=== PATIENT | male | born 1940 | race Caucasian/White ===

== ENCOUNTER → 2016-08-29 | Outpatient (CLI) | payer MEDICARE, OTHER ==
[~2016-08-29] MED LIST: AMLO10TA2 PO; ASPI325T PO; DONETAB6 PO; ENAL20TA PO; HYDR25TAB PO; METO25TA74 PO; SERT25TA85 PO; SIMV10TA2 PO; SIMV20TA2 PO
== END ==
LOC: M LAB 09:54
PROVIDERS: ATTEND Urology
DX: C61 Malignant neoplasm of prostate (principal)

== ENCOUNTER → 2017-02-27 | Outpatient (CLI) | payer MEDICARE, OTHER ==
[~2017-02-27] MED LIST changes: +METO1TAB32 PO; -METO25TA74 PO; +SERT25TA PO; -SERT25TA85 PO
== END ==
LOC: M LAB 10:10
PROVIDERS: ATTEND Urology
DX: C61 Malignant neoplasm of prostate (principal)

== ENCOUNTER 2017-07-24 09:30 | Inpatient (IN) | payer MEDICARE, OTHER ==
[2017-07-24] MEDS ORDERED: SIMV40TA2 PO (09:45)
[2017-07-24] MEDS ORDERED: NS 500 ML IV ONE (09:45)
[2017-07-24] MEDS ORDERED: NAME28CA PO ×2 (09:45→10:25)
[2017-07-24] MEDS ORDERED: ENAL20TA PO ×2 (09:45→10:25)
[2017-07-24 10:11] LABS: BASO % 0.2 % (0.0-1.0); EOS # 0.1 10^3/uL (0.0-0.50); EOS % 0.4 % (0.0-3.0); IMMATURE GRANULOCYTE % 1.4 % (0-0); LYMPH # 1.5 10^3/uL (1.5-4.5); MEAN CORPUSCULAR HEMOGLOBIN 30.3 pg (27.0-33.0); MEAN CORPUSCULAR HGB CONC 32.3 g/dl (32.0-36.5); MEAN CORPUSCULAR VOLUME 93.9 fl (80.0-96.0); MONO # 0.5 10^3/uL (0.0-0.8); MONO % 2.4 % (0.0-5.0); NEUTROPHILS # 16.2 10^3/uL (1.8-7.7); NEUTROPHILS % 87.6 % (36.0-66.0); PLATELET COUNT, AUTOMATED 228 10^3/uL (150-450); RED CELL DISTRIBUTION WIDTH 14.6 % (11.5-14.5); WHITE BLOOD COUNT 18.5 10^3/uL (4.0-10.0)
[2017-07-24] MEDS ORDERED: PANTOPRAZOLE 40MG INJ (PROTONIX) (C9113) IV ONE (10:15)
[2017-07-24 10:25] LABS: INR 1.14
[2017-07-24] MEDS ORDERED: ASPI325T PO (10:25)
[2017-07-24] MEDS ORDERED: AMLO10TA2 PO (10:25)
[2017-07-24] MEDS ORDERED: DONE1TAB62 PO (10:25)
[2017-07-24] MEDS ORDERED: SERT25TA PO (10:25)
[2017-07-24] MEDS ORDERED: METO1TAB7 PO (10:25)
[2017-07-24] MEDS ORDERED: ZOCO40TA PO (10:25)
[2017-07-24] MEDS ORDERED: HYDR25TAB PO (10:25)
[2017-07-24] MEDS ORDERED: SIMV10TA2 PO (10:25)
[2017-07-24 10:49] LABS: ALBUMIN 3.4 GM/DL (3.2-5.2); ALBUMIN/GLOBULIN RATIO 1.36 (1.00-1.93); ALKALINE PHOSPHATASE 58 U/L (45-117); ALT/SGPT 32 U/L (12-78); ANION GAP 10 MEQ/L (8-16); AST/SGOT 20 U/L (7-37); BILIRUBIN,DIRECT < 0.1 MG/DL (0.0-0.2); BILIRUBIN,TOTAL 0.3 MG/DL (0.2-1.0); BLOOD UREA NITROGEN 39 MG/DL (7-18); CARBON DIOXIDE LEVEL 25 MEQ/L (21-32); CHLORIDE LEVEL 110 MEQ/L (98-107); CREATININE FOR GFR 1.28 MG/DL (0.70-1.30); GLOMERULAR FILTRATION RATE 58.2 (>42); GLUCOSE, FASTING 146 MG/DL (83-110); POTASSIUM SERUM 3.6 MEQ/L (3.5-5.1); SODIUM LEVEL 145 MEQ/L (136-145); TOTAL PROTEIN 5.9 GM/DL (6.4-8.2)
[2017-07-24] MEDS ORDERED: ISOVUE-370 76% 100ML VIAL (Q9967) As Ordered ONE (11:09)
--- NOTE | 2017-07-24 12:35 | HPEPDOC ---
General Date of Admission 07/24/17 Primary Care Physician: STACI NG M.D. Chief Complaint The patient is a 77-year-old male admitted with a reason for visit of syncope. Source: Patient, Family Exam Limitations: Dementia Timing/Duration: 24 hours Severity: Mild, Moderate Associated Symptoms: Dizziness History of Present Illness 77 yo male for one day history of black stools. History is uncertain due to underlying dementia. He thinks this is his first occurrence of melena. Also admits to dizziness with exertion over the past two days. Lives alone. Family at bedside. Denies any other complaints. Denies NSAID ab/use. Home Medications Scheduled Amlodipine Besylate (Amlodipine Besylate) 10 Mg Tab, 10 MG PO DAILY, (Reported) Aspirin (Aspirin) 325 Mg Tab, 325 MG PO DAILY, (Reported) Donepezil Hydrochloride (Donepezil HCl) 23 Mg Tab, 23 MG PO DAILY, (Reported) Enalapril Maleate (Enalapril Maleate) 20 Mg Tab, 20 MG PO DAILY, (Reported) Hydrochlorothiazide (Hydrochlorothiazide) 25 Mg Tab, 25 MG PO DAILY, (Reported) Memantine Hydrochloride (Namenda Xr) 28 Mg Cap, 28 MG PO QHS, (Reported) Metoprolol Succinate (Metoprolol Succinate ER) 50 Mg Tab, 25 MG PO DAILY, ( Reported) Sertraline Hcl (Sertraline HCl) 25 Mg Tab, 25 MG PO QHS, (Reported) Simvastatin (Simvastatin) 10 Mg Tab, 10 MG PO QHS, (Reported) 50mg total dose Simvastatin - High Dose (Zocor) 40 Mg Tab, 40 MG PO QHS, (Reported) 50mg total dose Allergies Coded Allergies: No Known Allergies (Unverified , 01/19/16) Past Medical History Medical History HTN CAD s/p BMS stents 10-15 years ago - [facility] Depression Dementia Prostate CA s/p prostatectomy Social History * Smoker: greater than 1 pack/day Alcohol: Denies Drugs: denies Review of Symptoms Constitutional: Reports: Other (dizziness), Denies: Chills, Fever, Malaise, Night Sweats, Weakness, Fatigue, Weight Loss , Lethargy Eyes: Denies: Pain, Vision change, Conjunctivae inflammation, Eyelid inflammation, Redness, Other ENT: Denies: Head Aches, Ear Pain, Dysphagia, Sinus Congestion, Post Nasal Drip , Sore Throat, Epistaxis, Other Symptoms Skin: Denies: Rash, Lesions, Jaundice, Bruising, Itching, Dry, Breakdown, Nail Changes, Other Pulmonary: Denies: Dyspnea, Cough, Pleuritic Chest Pain, Other Symptoms Cardiovascular: Denies: Chest Pain, Palpitations, Orthopnea, Paroxysmal Noc. Dyspnea, Edema, Lt Headedness, Other Symptoms Gastrointestinal: Denies: Nausea, Vomiting, Abdominal Pain, Diarrhea, Constipation, Melena, Hematochezia, Other Symptoms Genitourinary: Denies: Dysuria, Frequency, Incontinence, Hematuria, Retention, Other Symptoms Hematologic: Denies: Bruising, Bleeding Excessively, Petecchia, Purpura, Enlarged Lymph Nodes, Other Hematologic Physical Examination General Exam: Positive: Alert, Cooperative, No Acute Distress Eye Exam: Positive: PERRLA, Conjunctiva & lids normal, EOMI, Negative: Sclera icteric ENT Exam: Positive: Atraumatic, Mucous membr. moist/pink, Tongue Midline Neck Exam: Positive: Supple, Negative: JVD Chest Exam: Positive: Clear to auscultation, Normal air movement Heart Exam: Positive: Rate Normal, Regular Rhythm Telemetry: Positive: No significant arrhythmia Abdomen Exam: Positive: Normal bowel sounds, Soft, Negative: Tenderness Neuro Exam: Positive: Normal Speech Psych Exam: Negative: Oriented x 3 (oriented to person and place) Vital Signs Vital Signs Date Time Temp Pulse Resp B/P (MAP) Pulse Ox O2 Delivery O2 Flow Rate FiO2 07/24/17 10:03 97.6 77 19 102/50 (67) 98 Room Air Laboratory Data Labs 24H Laboratory Tests 2 07/24/17 09:58: Immature Granulocyte % (Auto) 1.4H, White Blood Count 18.5H, Red Blood Count 2.31L, Hemoglobin 7.0L, Hematocrit 21.7L, Mean Corpuscular Volume 93.9, Mean Corpuscular Hemoglobin 30.3, Mean Corpuscular Hemoglobin Concent 32.3, Red Cell Distribution Width 14.6H, Platelet Count 228, Neutrophils (%) (Auto) 87.6H, Lymphocytes (%) (Auto) 8.0L, Monocytes (%) (Auto) 2.4, Eosinophils (%) (Auto) 0.4, Basophils (%) (Auto) 0.2, Neutrophils # (Auto) 16.2H, Lymphocytes # (Auto) 1.5, Monocytes # (Auto) 0.5, Eosinophils # (Auto) 0.1, Basophils # (Auto) 0.0, Immature Granulocyte # (Auto) 0.3H, Nucleated Red Blood Cells % (auto) 0.0, Prothrombin Time 14.8H, Prothromb Time International Ratio 1.14, Anion Gap 10, Glomerular Filtration Rate 58.2, Calcium Level 8.0L, Aspartate Amino Transf (AST /SGOT) 20, Alanine Aminotransferase (ALT/SGPT) 32, Alkaline Phosphatase 58, Total Bilirubin 0.3, Direct Bilirubin < 0.1, Total Protein 5.9L, Albumin 3.4, Albumin/Globulin Ratio 1.36, Lipase 90 07/24/17 11:35: Lactic Acid Level 2.0 CBC/BMP Laboratory Tests 07/24/17 09:58 Red Blood Count 2.31 L, Mean Corpuscular Volume 93.9, Mean Corpuscular Hemoglobin 30.3, Mean Corpuscular Hemoglobin Concent 32.3, Red Cell Distribution Width 14.6 H, Neutrophils (%) (Auto) 87.6 H, Lymphocytes (%) (Auto ) 8.0 L, Monocytes (%) (Auto) 2.4, Eosinophils (%) (Auto) 0.4, Basophils (%) ( Auto) 0.2, Neutrophils # (Auto) 16.2 H, Lymphocytes # (Auto) 1.5, Monocytes # ( Auto) 0.5, Eosinophils # (Auto) 0.1, Basophils # (Auto) 0.0 Microbiology Microbiology 07/24/17 Blood Culture, Received Pending 07/24/17 Blood Culture, Received Pending Problems (1) GI bleed Status: Acute Response to Treatment: Progressing Discussed With: Patient Problem Specific Plan: Consult Specialist, Monitor Clinically, Repeat Labs (2) CAD (coronary artery disease) Status: Chronic Discussed With: Patient (3) HTN (hypertension) Status: Chronic Discussed With: Patient Problem Specific Plan: Monitor Clinically (4) Dementia Status: Chronic Discussed With: Patient Problem Specific Plan: Monitor Clinically (5) Prostate cancer Status: Chronic Problem Specific Plan: Monitor Clinically Problem Text: s/p prostatectomy (6) Depression Status: Chronic Discussed With: Patient Problem Specific Plan: Monitor Clinically Plan / VTE VTE Prophylaxis Ordered?: Yes (mechanical) Plan Plan NPO, IV fluids, GI consultation, serial H/H, IV protonix Discussed advanced directives with patient and family. IVF: Continue Diet: Make NPO Activity: Bedrest Anticipated Discharge: Home, Home With Services GIA HAMILTON MD Jul 24, 2017 12:35
--- NOTE | 2017-07-24 12:48 | REP ---
CT of the abdomen pelvis with IV contrast, without bowel contrast: Comparison is 12/14/2015. The patient has leukocytosis . The patient has a history of prostate carcinoma. The patient has had an interval prostatectomy. The visualized lung bain are unremarkable. The hepatic parenchyma is homogeneous. There is a calcified granuloma in the hepatic left lobe, unchanged. The gallbladder, pancreas and spleen are normal size and unremarkable and unchanged. The adrenals are unremarkable, unchanged. There are multiple bilateral renal cortical cysts as previously, the largest cyst on the left today measuring 9.0 cm (8.6 cm previously). The largest cyst in the right kidney is a parapelvic cyst today measuring 3.3 cm (previously 2.8 cm). There is no hydronephrosis. There is no perinephric stranding or fluid collection. There is a dumbbell shaped abdominal aortic aneurysm. The superior portion today measures 3.2 cm diameter and the inferior portion measures 3.2 cm diameter. There is no periaortic hematoma. There is no periaortic or mesenteric adenopathy. There is no bowel distension. No inflammatory changes in the mesentery. There is no ascites. Pelvis: There are occasional diverticula in the descending colon. There is no CT evidence of diverticulitis. The prostate is no longer present. The bladder is unremarkable. There is no pelvic adenopathy or ascites. There are no lytic, blastic or destructive skeletal changes. 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 Impression: There is no ascites. There are no focal fluid collections. No abscess is identified. There are bilateral renal cortical cysts, unchanged. There is no hydronephrosis or perinephric fluid collection. There is a calcified granuloma of the left lobe of the liver, unchanged. There has been interim prostatectomy. There is a dumbbell shaped abdominal aortic aneurysm measuring up to 3.2 cm in diameter. No retroperitoneal or intraperitoneal adenopathy. There are no lytic, blastic destructive skeletal changes. 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 Signed by Marco Martines MD 07/24/2017 12:39 P
[2017-07-24 18:33] VITALS: BP 116/62
[2017-07-24] MEDS: NS 1,000 ML IV SCH (18:56)
[2017-07-24 20:00] VITALS: BP 117/60
--- NOTE | 2017-07-24 20:02 | ECGEPIP ---
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
[2017-07-24 20:47] VITALS: BP 117/60
[2017-07-24 21:02] VITALS: BP 121/58
[2017-07-24] MEDS: PANTOPRAZOLE 40MG INJ (PROTONIX) (C9113) IV SCH (22:00)
[2017-07-24 22:03] VITALS: BP 101/54
[2017-07-25] VITALS: BP 121/64
[2017-07-25 04:00] VITALS: BP 99/53
[2017-07-25 05:21] LABS: MEAN CORPUSCULAR HEMOGLOBIN 29.9 pg (27.0-33.0); MEAN CORPUSCULAR HGB CONC 33.8 g/dl (32.0-36.5); MEAN CORPUSCULAR VOLUME 88.4 fl (80.0-96.0); PLATELET COUNT, AUTOMATED 195 10^3/uL (150-450); WHITE BLOOD COUNT 10.2 10^3/uL (4.0-10.0)
[2017-07-25 05:34] LABS: ANION GAP 8 MEQ/L (8-16); BLOOD UREA NITROGEN 21 MG/DL (7-18); CALCIUM LEVEL 7.5 MG/DL (8.8-10.2); CARBON DIOXIDE LEVEL 25 MEQ/L (21-32); CHLORIDE LEVEL 114 MEQ/L (98-107); CREATININE FOR GFR 1.07 MG/DL (0.70-1.30); GLOMERULAR FILTRATION RATE > 60.0 (>42); GLUCOSE, FASTING 102 MG/DL (83-110); SODIUM LEVEL 147 MEQ/L (136-145)
--- NOTE | 2017-07-25 07:20 | IPNPDOC ---
Subjective Date Seen The patient was seen on 07/25/17. Subjective Chief Complaint/HPI The patient is a 77-year-old male admitted with a reason for visit of Gi Bleed. General: Denies: ROS Unobtainable, Chills, Night Sweats, Fatigue, Malaise, Normal Appetite, Other Symptoms Constitutional: Denies: Chills, Fever, Malaise, Night Sweats, Weakness, Fatigue , Weight Loss, Lethargy, Other Eyes: Denies: Pain, Vision change, Conjunctivae inflammation, Eyelid inflammation, Redness, Other ENT: Denies: Head Aches, Ear Pain, Dysphagia, Sinus Congestion, Post Nasal Drip , Sore Throat, Epistaxis, Other Symptoms Skin: Denies: Rash, Lesions, Jaundice, Bruising, Itching, Dry, Breakdown, Nail Changes, Other Pulmonary: Denies: Dyspnea, Cough, Pleuritic Chest Pain, Other Symptoms Cardiovascular: Denies: Chest Pain, Palpitations, Orthopnea, Paroxysmal Noc. Dyspnea, Edema, Lt Headedness, Other Symptoms Gastrointestinal: Denies: Nausea, Vomiting, Abdominal Pain, Diarrhea, Constipation, Melena, Hematochezia, Other Symptoms Genitourinary: Denies: Dysuria, Frequency, Incontinence, Hematuria, Retention, Other Symptoms Objective Physical Examination General Exam: Positive: Alert, Cooperative, No Acute Distress Eye Exam: Positive: PERRLA, Conjunctiva & lids normal, EOMI, Negative: Sclera icteric ENT Exam: Positive: Atraumatic, Mucous membr. 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 Assistance appreciated. Serial H/H, keep Hgb >8. NPO, IV fluids for EGD. (2) CAD (coronary artery disease) Status: Chronic Discussed With: Patient Problem Text: Aspirin on hold. History of bare metal stent(s) 10-15 years ago as per family and patient. (3) HTN (hypertension) Status: Chronic Discussed With: Patient Problem Specific Plan: Monitor Clinically Problem Text: Home medications on hold. (4) Dementia Status: Chronic Discussed With: Patient Problem Specific Plan: Monitor Clinically (5) Prostate cancer Status: Chronic Problem Specific Plan: Monitor Clinically Problem Text: s/p prostatectomy (6) Depression Status: Chronic Discussed With: Patient Problem Specific Plan: Monitor Clinically Problem Text: Continue home regimen. Plan/VTE VTE Prophylaxis Ordered?: Yes (mechanical) Plan IVF: Continue Diet: Make NPO Activity: Bedrest Diagnostics: Other Diagnostics (EGD) Anticipated Discharge: Home, Home With Services VS, I&O, 24H, [facility] Vital Signs/I&O Vital Signs Date Time Temp Pulse Resp B/P (MAP) Pulse Ox O2 Delivery O2 Flow Rate FiO2 07/25/17 04:00 99.6 67 18 99/53 (68) 94 Room Air I&O- Last 24 Hours up to 6 AM 07/26/17 06:00 Output Total 400 ml Balance -400 ml Laboratory Data 24H LABS Laboratory Tests 2 07/24/17 09:58: Immature Granulocyte % (Auto) 1.4H, White Blood Count 18.5H, Red Blood Count 2.31L, Hemoglobin 7.0L, Hematocrit 21.7L, Mean Corpuscular Volume 93.9, Mean Corpuscular Hemoglobin 30.3, Mean Corpuscular Hemoglobin Concent 32.3, Red Cell Distribution Width 14.6H, Platelet Count 228, Neutrophils (%) (Auto) 87.6H, Lymphocytes (%) (Auto) 8.0L, Monocytes (%) (Auto) 2.4, Eosinophils (%) (Auto) 0.4, Basophils (%) (Auto) 0.2, Neutrophils # (Auto) 16.2H, Lymphocytes # (Auto) 1.5, Monocytes # (Auto) 0.5, Eosinophils # (Auto) 0.1, Basophils # (Auto) 0.0, Immature Granulocyte # (Auto) 0.3H, Nucleated Red Blood Cells % (auto) 0.0, Prothrombin Time 14.8H, Prothromb Time International Ratio 1.14, Anion Gap 10, Glomerular Filtration Rate 58.2, Calcium Level 8.0L, Aspartate Amino Transf (AST /SGOT) 20, Alanine Aminotransferase (ALT/SGPT) 32, Alkaline Phosphatase 58, Total Bilirubin 0.3, Direct Bilirubin < 0.1, Total Protein 5.9L, Albumin 3.4, Albumin/Globulin Ratio 1.36, Lipase 90 07/24/17 11:35: Lactic Acid Level 2.0 07/25/17 04:48: Nucleated Red Blood Cells % (auto) 0.0, Anion Gap 8, Glomerular Filtration Rate > 60.0, Calcium Level 7.5L, Blood Urea Nitrogen 21H, Creatinine 1.07, Sodium Level 147H, Potassium Level 3.0L, Chloride Level 114H, Carbon Dioxide Level 25 CBC/BMP Laboratory Tests 07/24/17 09:58 Red Blood Count 2.31 L, Mean Corpuscular Volume 93.9, Mean Corpuscular Hemoglobin 30.3, Mean Corpuscular Hemoglobin Concent 32.3, Red Cell Distribution Width 14.6 H, Neutrophils (%) (Auto) 87.6 H, Lymphocytes (%) (Auto ) 8.0 L, Monocytes (%) (Auto) 2.4, Eosinophils (%) (Auto) 0.4, Basophils (%) ( Auto) 0.2, Neutrophils # (Auto) 16.2 H, Lymphocytes # (Auto) 1.5, Monocytes # ( Auto) 0.5, Eosinophils # (Auto) 0.1, Basophils # (Auto) 0.0 07/24/17 18:46 07/25/17 00:12 07/25/17 04:48 Red Blood Count 2.94 L, Mean Corpuscular Volume 88.4, Mean Corpuscular Hemoglobin 29.9, Mean Corpuscular Hemoglobin Concent 33.8, Red Cell Distribution Width 15.0 H, Calcium Level 7.5 L Microbiology Microbiology 07/24/17 Blood Culture, Received Pending 07/24/17 Blood Culture, Received Pending GIA HAMILTON MD Jul 25, 2017 07:20
[2017-07-25 08:00] VITALS: BP 121/63
[2017-07-25] MEDS ORDERED: MEMANTINE 5MG TABLET (NAMENDA) PO SCH (09:00)
[2017-07-25] MEDS ORDERED: DONEPEZIL 5 MG TAB PO SCH (09:00)
[2017-07-25] MEDS: NS 1,000 ML IV SCH (09:08)
[2017-07-25] MEDS: PANTOPRAZOLE 40MG INJ (PROTONIX) (C9113) IV SCH (09:13)
[2017-07-25 11:30] LABS: MAGNESIUM LEVEL 2.2 MG/DL (1.8-2.4)
[2017-07-25] MEDS ORDERED: POTASSIUM CHLORIDE 10 MEQ SR TABLET PO ONE (11:30)
[2017-07-25 12:00] VITALS: BP 122/68
[2017-07-25] MEDS: D5W/0.45% SODIUM CHLORIDE 1,000 ML IV SCH ×2 (12:02→22:41)
[2017-07-25] MEDS ORDERED: PHENYLephrine HCL 500 MCG/5 ML (100MCG/ML) SYRINGE (J2370) As Ordered ONE (15:41)
[2017-07-25] MEDS ORDERED: LIDOCAINE 2% MDV 20 ML VIAL As Ordered ONE (15:41)
[2017-07-25] MEDS ORDERED: PROPOFOL 200 MG/20 ML VIAL As Ordered ONE (15:41)
--- NOTE | 2017-07-25 15:44 | ROOR ---
Patient Name: Spencer Vicente Procedure Date: 07/25/2017 3:27 PM Date of : 1940 Age: 77 Room: [facility] Gender: Male Note Status: Finalized Procedure: Upper GI endoscopy Indications: Melena, Recent gastrointestinal bleeding Providers: Jose De Jesus Haskins MD Referring MD: 2. Inpatient 2. Inpatient Requesting Provider: Medicines: Monitored Anesthesia Care Complications: No immediate complications. Procedure: Pre-Anesthesia Assessment: - The heart rate, respiratory rate, oxygen saturations, blood pressure, adequacy of pulmonary ventilation, and response to care were monitored throughout the procedure. The Endoscope was introduced through the mouth, and advanced to the second part of duodenum. The upper GI endoscopy was accomplished without difficulty. The patient tolerated the procedure well. Findings: The Z-line was irregular and was found 35 cm from the incisors. A medium-sized hiatal hernia was present. No other significant abnormalities were identified in a careful examination of the stomach. Localized moderate inflammation characterized by congestion (edema), erythema and granularity was found in the duodenal bulb. One non-bleeding cratered duodenal ulcer with no stigmata of bleeding was found in the first portion of the duodenum. The exam was otherwise without abnormality. Impression: - Z-line irregular, 35 cm from the incisors. - Medium-sized hiatal hernia. - Duodenitis. - One non-bleeding duodenal ulcer with no stigmata of bleeding. - The examination was otherwise normal. - No specimens collected. - The examination was otherwise normal. Recommendation: - Return patient to [facility] for ongoing care. - Use Prilosec (omeprazole) 40 mg PO BID. - Use sucralfate suspension 1 gram PO QID. - The findings and recommendations were discussed with the patient's family. Jose De Jesus Haskins MD Jose De Jesus Haskins MD 07/25/2017 3:44:06 PM This report has been signed electronically. Number of Addenda: 0 Note Initiated On: 07/25/2017 3:27 PM Estimated Blood Loss: Estimated blood loss: none.
[2017-07-25 16:30] VITALS: BP 111/58
[2017-07-25] MEDS: SUCRALFATE 1 GM TAB PO SCH ×2 (17:57→20:28)
[2017-07-25 20:00] VITALS: BP 110/56
[2017-07-25] MEDS: PANTOPRAZOLE 40MG TAB (PROTONIX) PO SCH (20:28)
[2017-07-25] MEDS: SERTRALINE HCL 25 MG TABLET PO SCH (20:28)
[2017-07-25] MEDS: SIMVASTATIN 40 MG TAB PO SCH (20:28)
[2017-07-26] VITALS: BP 113/59
[2017-07-26 04:00] VITALS: BP 128/62
[2017-07-26 04:52] LABS: MEAN CORPUSCULAR HEMOGLOBIN 29.9 pg (27.0-33.0); MEAN CORPUSCULAR HGB CONC 33.5 g/dl (32.0-36.5); MEAN CORPUSCULAR VOLUME 89.2 fl (80.0-96.0); PLATELET COUNT, AUTOMATED 199 10^3/uL (150-450); RED CELL DISTRIBUTION WIDTH 15.3 % (11.5-14.5); WHITE BLOOD COUNT 8.2 10^3/uL (4.0-10.0)
[2017-07-26 05:08] LABS: ANION GAP 6 MEQ/L (8-16); BLOOD UREA NITROGEN 13 MG/DL (7-18); CALCIUM LEVEL 7.7 MG/DL (8.8-10.2); CARBON DIOXIDE LEVEL 26 MEQ/L (21-32); CHLORIDE LEVEL 111 MEQ/L (98-107); CREATININE FOR GFR 0.91 MG/DL (0.70-1.30); GLOMERULAR FILTRATION RATE > 60.0 (>42); GLUCOSE, FASTING 116 MG/DL (83-110); POTASSIUM SERUM 3.1 MEQ/L (3.5-5.1); SODIUM LEVEL 143 MEQ/L (136-145)
[2017-07-26] MEDS ORDERED: POTASSIUM CHLORIDE 10 MEQ SR TABLET PO ONE (05:45)
--- NOTE | 2017-07-26 06:40 | IPNPDOC ---
Subjective Date Seen The patient was seen on 07/26/17. Subjective Chief Complaint/HPI The patient is a 77-year-old male admitted with a reason for visit of Gi Bleed. General: Denies: ROS Unobtainable, Chills, Night Sweats, Fatigue, Malaise, Normal Appetite, Other Symptoms Constitutional: Denies: Chills, Fever, Malaise, Night Sweats, Weakness, Fatigue , Weight Loss, Lethargy, Other Eyes: Denies: Pain, Vision change, Conjunctivae inflammation, Eyelid inflammation, Redness, Other ENT: Denies: Head Aches, Ear Pain, Dysphagia, Sinus Congestion, Post Nasal Drip , Sore Throat, Epistaxis, Other Symptoms Skin: Denies: Rash, Lesions, Jaundice, Bruising, Itching, Dry, Breakdown, Nail Changes, Other Pulmonary: Denies: Dyspnea, Cough, Pleuritic Chest Pain, Other Symptoms Cardiovascular: Denies: Chest Pain, Palpitations, Orthopnea, Paroxysmal Noc. Dyspnea, Edema, Lt Headedness, Other Symptoms Gastrointestinal: Denies: Nausea, Vomiting, Abdominal Pain, Diarrhea, Constipation, Melena, Hematochezia, Other Symptoms Genitourinary: Denies: Dysuria, Frequency, Incontinence, Hematuria, Retention, Other Symptoms Objective Physical Examination General Exam: Positive: Alert, Cooperative, No Acute Distress Eye Exam: Positive: PERRLA, Conjunctiva & lids normal, EOMI, Negative: Sclera icteric ENT Exam: Positive: Atraumatic, Mucous membr. 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 (2) CAD (coronary artery disease) Status: Chronic Discussed With: Patient Problem Text: Aspirin reduced to 81mg History of bare metal stent(s) 10-15 years ago as per family and patient. (3) HTN (hypertension) Status: Chronic Discussed With: Patient Problem Specific Plan: Monitor Clinically Problem Text: Home medications on hold. (4) Dementia Status: Chronic Discussed With: Patient Problem Specific Plan: Monitor Clinically Problem Text: home meds on hold secondary to gi bleed as per gi recs (5) Prostate cancer Status: Chronic Problem Specific Plan: Monitor Clinically Problem Text: s/p prostatectomy (6) Depression Status: Chronic Discussed With: Patient Problem Specific Plan: Monitor Clinically Problem Text: Continue home regimen. (7) Arrhythmia Status: Acute Response to Treatment: Progressing Discussed With: Patient Problem Specific Plan: Monitor Clinically, Repeat Tests Problem Text: ecg pending possibly afib not a candidate for anticoagulation at this time given gi bleed Plan/VTE VTE Prophylaxis Ordered?: Yes (mechanical) Plan IVF: Continue Diet: Make NPO Activity: Bedrest Diagnostics: Repeat Labs in AM, EKG Anticipated Discharge: Home, Home With Services ECG pending. advance diet later today if h/h stable and tolerating full liquids. downgrade to pcu. echo pending. VS, I&O, 24H, [facility] Vital Signs/I&O Vital Signs Date Time Temp Pulse Resp B/P (MAP) Pulse Ox O2 Delivery O2 Flow Rate FiO2 07/26/17 04:00 99.0 60 20 128/62 (84) 97 Room Air Laboratory Data 24H LABS Laboratory Tests 2 07/26/17 04:06: 07/26/17 04:09: Nucleated Red Blood Cells % (auto) 0.0, Anion Gap 6L, Glomerular Filtration Rate > 60.0, Blood Urea Nitrogen 13, Creatinine 0.91, Sodium Level 143, Potassium Level 3.1L, Chloride Level 111H, Carbon Dioxide Level 26, Calcium Level 7.7L CBC/BMP Laboratory Tests 07/26/17 04:09 Red Blood Count 2.88 L, Mean Corpuscular Volume 89.2, Mean Corpuscular Hemoglobin 29.9, Mean Corpuscular Hemoglobin Concent 33.5, Red Cell Distribution Width 15.3 H, Calcium Level 7.7 L Microbiology Microbiology 07/24/17 Blood Culture - Preliminary, Resulted No growth after 24 hours . All specim... 07/24/17 Blood Culture - Preliminary, Resulted No growth after 24 hours . All specim... GIA HAMILTON MD Jul 26, 2017 06:40
[2017-07-26] MEDS: SUCRALFATE 1 GM TAB PO SCH ×4 (07:22→20:49)
[2017-07-26 08:00] VITALS: BP 126/73
[2017-07-26] MEDS: ASPIRIN 81 MG ENTERIC TAB PO SCH (08:55)
[2017-07-26] MEDS: PANTOPRAZOLE 40MG TAB (PROTONIX) PO SCH ×2 (08:55→20:49)
[2017-07-26 12:00] VITALS: BP 118/65
[2017-07-26] MEDS: D5W/0.45% SODIUM CHLORIDE 1,000 ML IV SCH (12:52)
[2017-07-26 16:00] VITALS: BP 123/83
[2017-07-26 20:00] VITALS: BP 100/58
[2017-07-26] MEDS: SERTRALINE HCL 25 MG TABLET PO SCH (20:49)
[2017-07-26] MEDS: SIMVASTATIN 40 MG TAB PO SCH (20:49)
--- NOTE | 2017-07-26 21:15 | ECGEPIP ---
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
[2017-07-27] VITALS: BP 111/61
[2017-07-27] MEDS: D5W/0.45% SODIUM CHLORIDE 1,000 ML IV SCH (03:15)
[2017-07-27 04:00] VITALS: BP 121/58
[2017-07-27 04:56] LABS: MEAN CORPUSCULAR HGB CONC 33.5 g/dl (32.0-36.5); MEAN CORPUSCULAR VOLUME 89.8 fl (80.0-96.0); PLATELET COUNT, AUTOMATED 216 10^3/uL (150-450); RED CELL DISTRIBUTION WIDTH 14.6 % (11.5-14.5); WHITE BLOOD COUNT 7.6 10^3/uL (4.0-10.0)
[2017-07-27 05:00] LABS: ANION GAP 9 MEQ/L (8-16); BLOOD UREA NITROGEN 11 MG/DL (7-18); CALCIUM LEVEL 7.4 MG/DL (8.8-10.2); CARBON DIOXIDE LEVEL 22 MEQ/L (21-32); CHLORIDE LEVEL 113 MEQ/L (98-107); CREATININE FOR GFR 1.05 MG/DL (0.70-1.30); GLOMERULAR FILTRATION RATE > 60.0 (>42); GLUCOSE, FASTING 119 MG/DL (83-110); POTASSIUM SERUM 3.5 MEQ/L (3.5-5.1); SODIUM LEVEL 144 MEQ/L (136-145)
--- NOTE | 2017-07-27 06:52 | IPNPDOC ---
Subjective Date Seen The patient was seen on 07/27/17. Subjective Chief Complaint/HPI The patient is a 77-year-old male admitted with a reason for visit of Gi Bleed. General: Denies: ROS Unobtainable, Chills, Night Sweats, Fatigue, Malaise, Normal Appetite, Other Symptoms Constitutional: Denies: Chills, Fever, Malaise, Night Sweats, Weakness, Fatigue , Weight Loss, Lethargy, Other Eyes: Denies: Pain, Vision change, Conjunctivae inflammation, Eyelid inflammation, Redness, Other ENT: Denies: Head Aches, Ear Pain, Dysphagia, Sinus Congestion, Post Nasal Drip , Sore Throat, Epistaxis, Other Symptoms Skin: Denies: Rash, Lesions, Jaundice, Bruising, Itching, Dry, Breakdown, Nail Changes, Other Pulmonary: Denies: Dyspnea, Cough, Pleuritic Chest Pain, Other Symptoms Cardiovascular: Denies: Chest Pain, Palpitations, Orthopnea, Paroxysmal Noc. Dyspnea, Edema, Lt Headedness, Other Symptoms Gastrointestinal: Denies: Nausea, Vomiting, Abdominal Pain, Diarrhea, Constipation, Melena, Hematochezia, Other Symptoms Genitourinary: Denies: Dysuria, Frequency, Incontinence, Hematuria, Retention, Other Symptoms Objective Physical Examination General Exam: Positive: Alert, Cooperative, No Acute Distress Eye Exam: Positive: PERRLA, Conjunctiva & lids normal, EOMI, Negative: Sclera icteric ENT Exam: Positive: Atraumatic, Mucous membr. moist/pink, Tongue Midline Neck Exam: Positive: Supple, Negative: JVD Chest Exam: Positive: Clear to auscultation, Normal air movement Heart Exam: Positive: Rate Normal, Regular Rhythm Telemetry: Positive: No significant arrhythmia, PACs Abdomen Exam: Positive: Normal bowel sounds, Soft, Negative: Tenderness Neuro Exam: Positive: Normal Speech Psych Exam: Negative: Oriented x 3 (oriented x [address]) Assessment /Plan Problems (1) GI bleed Status: Acute Response to Treatment: Progressing Discussed With: Screening Tech, Patient Problem Specific Plan: Consult Specialist, Monitor Clinically, Repeat Labs Problem Text: acute blood loss anemia secondary to gi bleed treated with transfusion 3 units prbc d/w gi, s/p egd, non-bleeding duodenal ulcer with duodenitis - gi recs d/c donepezil, decrease asa to 81, ppi bid, carafate achs tolerating diet, dc ivf transfer to floor keep Hgb >8. (2) CAD (coronary artery disease) Status: Chronic Discussed With: Patient Problem Text: Aspirin reduced to 81mg History of bare metal stent(s) 10-15 years ago as per family and patient. (3) HTN (hypertension) Status: Chronic Discussed With: Patient Problem Specific Plan: Monitor Clinically Problem Text: Home medications on hold. (4) Dementia Status: Chronic Discussed With: Patient Problem Specific Plan: Monitor Clinically Problem Text: donepezil on hold secondary to gi bleed as per gi recs (5) Prostate cancer Status: Chronic Problem Specific Plan: Monitor Clinically Problem Text: s/p prostatectomy (6) Depression Status: Chronic Discussed With: Patient Problem Specific Plan: Monitor Clinically Problem Text: Continue home regimen. (7) Arrhythmia Status: Chronic Response to Treatment: Stable, Progressing Discussed With: Patient Problem Specific Plan: Monitor Clinically Problem Text: 1st degree av block, Plan/VTE VTE Prophylaxis Ordered?: Yes (mechanical) Plan IVF: Continue Diet: Advance Activity: Advance Therapy: PT Pt and Family Services: Home Care Diagnostics: Repeat Labs in AM Anticipated Discharge: Home, Home With Services VS, I&O, 24H, [facility] Vital Signs/I&O Vital Signs Date Time Temp Pulse Resp B/P (MAP) Pulse Ox O2 Delivery O2 Flow Rate FiO2 07/27/17 04:00 98.7 64 18 121/58 (79) 96 Room Air Laboratory Data 24H LABS Laboratory Tests 2 07/27/17 04:15: Nucleated Red Blood Cells % (auto) 0.0, Anion Gap 9, Glomerular Filtration Rate > 60.0, Blood Urea Nitrogen 11, Creatinine 1.05, Sodium Level 144, Potassium Level 3.5, Chloride Level 113H, Carbon Dioxide Level 22, Calcium Level 7.4L CBC/BMP Laboratory Tests 07/26/17 13:48 07/27/17 04:15 Red Blood Count 2.83 L, Mean Corpuscular Volume 89.8, Mean Corpuscular Hemoglobin 30.0, Mean Corpuscular Hemoglobin Concent 33.5, Red Cell Distribution Width 14.6 H, Calcium Level 7.4 L Microbiology Microbiology 07/24/17 Blood Culture - Preliminary, Resulted No Growth after 48 hours. All Specime... 07/24/17 Blood Culture - Preliminary, Resulted No Growth after 48 hours. All Specime... GIA HAMILTON MD Jul 27, 2017 06:52
[2017-07-27] MEDS ORDERED: DOCUSATE SODIUM 100 MG CAP PO PRN (07:00)
[2017-07-27] MEDS ORDERED: MOM 30ML SUSPENSION UDC PO PRN (07:00)
[2017-07-27] MEDS ORDERED: SENNA 8.6 MG TAB (SENOKOT) PO PRN (07:00)
[2017-07-27] MEDS: SUCRALFATE 1 GM TAB PO SCH ×4 (07:12→20:54)
[2017-07-27] MEDS: ASPIRIN 81 MG ENTERIC TAB PO SCH (08:14)
[2017-07-27] MEDS: PANTOPRAZOLE 40MG TAB (PROTONIX) PO SCH ×2 (08:15→20:53)
[2017-07-27] MEDS: MEMANTINE 5MG TABLET (NAMENDA) PO SCH ×2 (08:15→20:54)
--- NOTE | 2017-07-27 10:55 | ECHO ---
DATE OF PROCEDURE: 07/26/2017 REFERRING PHYSICIAN: Dr. Leonard Peñaloza INDICATION: Cardiac dysrhythmia, unspecified. HEIGHT: 72 inches. WEIGHT: 202 pounds. 2D MEASUREMENTS: Aortic root: 3.5 cm Proximal ascending aorta: 3.6 cm Left atrium: 4.6 cm Ventricular septum: 0.91 cm Posterior wall: 1.02 cm Left ventricle diastole: 5.1 cm Left ventricle systole: 3.0 cm Inferior vena cava: 1.6 cm DOPPLER MEASUREMENTS: Aortic valve velocity: 162 cm/s LVOT velocity: 103 cm/s LVOT VTI: 26.8 cm Mild mitral regurgitation. Mitral E velocity: 136 cm/s Mitral A velocity: 117 cm/s Mitral deceleration time: 225 ms Mild tricuspid regurgitation. Estimated right ventricle systolic pressure: 26 mmHg assuming a right atrial pressure of 5 mmHg. MITRAL ANNULAR TISSUE DOPPLER: E prime lateral: 12.2 cm/s DESCRIPTION: Rhythm was sinus with frequent premature atrial contractions (PACs). Appearance of first-degree AV block. This was a moderately technically difficult echocardiogram. No pericardial effusion. This was a 2D, M-mode, color flow Doppler and pulse wave Doppler examination and included mitral annular tissue Doppler. CONCLUSIONS: 1. Normal left ventricle internal dimensions and wall thickness. Normal regional left ventricular (LV) wall motion and wall thickening. Normal LV systolic function. Left ventricular ejection fraction (LVEF) 60% by visual estimate. Normal LV diastolic function. 2. Mild left atrial dilatation. 3. Mild aortic valve sclerosis of a 3-cusp aortic valve. 4. Otherwise normal appearing echocardiogram Doppler.
[2017-07-27 20:00] VITALS: BP 111/57
[2017-07-27] MEDS: SERTRALINE HCL 25 MG TABLET PO SCH (20:53)
[2017-07-27] MEDS: SIMVASTATIN 40 MG TAB PO SCH (20:54)
[2017-07-28] VITALS: BP 118/55
[2017-07-28 04:00] VITALS: BP 140/55
[2017-07-28 04:52] LABS: MEAN CORPUSCULAR HEMOGLOBIN 29.3 pg (27.0-33.0); MEAN CORPUSCULAR HGB CONC 32.6 g/dl (32.0-36.5); MEAN CORPUSCULAR VOLUME 89.9 fl (80.0-96.0); PLATELET COUNT, AUTOMATED 243 10^3/uL (150-450); RED CELL DISTRIBUTION WIDTH 14.9 % (11.5-14.5); WHITE BLOOD COUNT 8.3 10^3/uL (4.0-10.0)
[2017-07-28 05:07] LABS: ANION GAP 9 MEQ/L (8-16); BLOOD UREA NITROGEN 15 MG/DL (7-18); CALCIUM LEVEL 7.5 MG/DL (8.8-10.2); CARBON DIOXIDE LEVEL 24 MEQ/L (21-32); CHLORIDE LEVEL 112 MEQ/L (98-107); GLOMERULAR FILTRATION RATE > 60.0 (>42); GLUCOSE, FASTING 112 MG/DL (83-110); POTASSIUM SERUM 3.3 MEQ/L (3.5-5.1); SODIUM LEVEL 145 MEQ/L (136-145)
[2017-07-28] MEDS ORDERED: POTASSIUM CHLORIDE 10 MEQ SR TABLET PO ONE (06:15)
[2017-07-28] MEDS: SUCRALFATE 1 GM TAB PO SCH ×2 (07:30→11:11)
[2017-07-28 08:00] VITALS: BP 131/66
[2017-07-28] MEDS: PANTOPRAZOLE 40MG TAB (PROTONIX) PO SCH (09:23)
[2017-07-28] MEDS: MEMANTINE 5MG TABLET (NAMENDA) PO SCH (09:23)
[2017-07-28] MEDS: ASPIRIN 81 MG ENTERIC TAB PO SCH (09:23)
[2017-07-28 12:00] VITALS: BP 127/71
[2017-07-28] MEDS ORDERED: PANT40TA2 PO (12:04)
[2017-07-28] MEDS ORDERED: MEMA1TAB PO ×2 (12:04→14:02)
[2017-07-28] MEDS ORDERED: ASPI81TAEC PO ×2 (12:04→14:02)
[2017-07-28] MEDS ORDERED: SUCR1TA PO ×2 (12:04→14:02)
--- NOTE | 2017-07-28 12:38 | DS.PDOC ---
Discharge Summary General Date of Admission Jul 24, 2017 at 12:35 Date of Discharge 07/28/17 Discharge Summary PROCEDURES PERFORMED DURING STAY: EGD DISCHARGE DIAGNOSES: 1. non-bleeding duodenal ulcer 2. duodenitis 3. acute blood loss anemia 4. CAD/PCI 5. HTN 6. Dementia 7. Prostate CA 8. Depression COMPLICATIONS/CHIEF COMPLAINT: Gi Bleed. HISTORY OF PRESENT ILLNESS: 77 yo male admitted for one day history of black stools. History not clear given patient's baseline dementia. HOSPITAL COURSE: Patient admitted for GI bleed and acute blood loss anemia. Transfused PRBC and underwent EGD. Patient denied any NSAID abuse, takes ASA 325 which was decreased to 81mg as per GI recs. No further bleeding, no further black stools, H/H remained stable. Donepezil was also discontinued for possible GI bleed adverse effect. His blood pressures were within normal limits without his antihypertensive medications. DISCHARGE MEDICATIONS: Please see below. ALLERGIES: Please see below. PHYSICAL EXAMINATION ON DISCHARGE: VITAL SIGNS: Please see below. GENERAL: NAD HEENT: NC/AT, EOMI, PERRL NECK: supple CARDIOVASCULAR EXAMINATION: +S1S2, RRR RESPIRATORY EXAMINATION: CTA B/L ABDOMINAL EXAMINATION: soft, NT, +BS EXTREMITIES: no edema LABORATORY DATA: Please see below. ACTIVITY: [As tolerated]. DIET: 2 gram sodium DISCHARGE INSTRUCTIONS: 1. Medications as directed 2. Follow up PCP in 3-5 days. 3. Follow up neurology in 3-10 days. DISCHARGE CONDITION: [Stable]. TIME SPENT ON DISCHARGE: Greater than 30 minutes. Vital Signs/I&Os Vital Signs Date Time Temp Pulse Resp B/P (MAP) Pulse Ox O2 Delivery O2 Flow Rate FiO2 07/28/17 08:00 Room Air 07/28/17 08:00 97.5 65 16 131/66 (87) 95 I&O- Last 24 Hours up to 6 AM 07/29/17 06:00 Intake Total 240 ml Output Total 300 ml Balance -60 ml Laboratory Data Labs 24H Laboratory Tests 2 07/28/17 04:15: Nucleated Red Blood Cells % (auto) 0.0, Anion Gap 9, Glomerular Filtration Rate > 60.0, Blood Urea Nitrogen 15, Creatinine 1.10, Sodium Level 145, Potassium Level 3.3L, Chloride Level 112H, Carbon Dioxide Level 24, Calcium Level 7.5L, Magnesium Level 2.0 CBC/BMP Laboratory Tests 07/28/17 04:15 Red Blood Count 2.97 L, Mean Corpuscular Volume 89.9, Mean Corpuscular Hemoglobin 29.3, Mean Corpuscular Hemoglobin Concent 32.6, Red Cell Distribution Width 14.9 H, Calcium Level 7.5 L Microbiology Microbiology 07/24/17 Blood Culture - Preliminary, Resulted No Growth after 72 hours. All specime... 07/24/17 Blood Culture - Preliminary, Resulted No Growth after 72 hours. All specime... Discharge Medications Scheduled Aspirin (Aspirin EC) 81 Mg Tabec, 81 MG PO DAILY Memantine Hydrochloride (Memantine HCl) 5 Mg Tab, 10 MG PO BID Pantoprazole Sodium (Pantoprazole Sodium) 40 Mg Tab, 40 MG PO BID Sertraline Hcl (Sertraline HCl) 25 Mg Tab, 25 MG PO QHS, (Reported) Simvastatin - High Dose (Zocor) 40 Mg Tab, 40 MG PO QHS, (Reported) 50mg total dose Sucralfate (Carafate) 1 Gm Tab, 1 GM PO ACHS Allergies Coded Allergies: No Known Allergies (Unverified , 01/19/16) GIA HAMILTON MD Jul 28, 2017 12:38
[2017-07-28] MEDS ORDERED: FAMO20TA PO (14:02)
== END 2017-07-28 14:02 | disposition home or self-care (01) | DRG 378 ==
LOC: EDBD 09:30 → M ED 09:30 → M ED INP 12:35 → M ICU 18:30
PROVIDERS: ADMIT Internal Medicine; ATTEND Internal Medicine
PROC: 30233N1 Transfusion of Nonautologous Red Blood Cells into Peripheral Vein, Percutaneous Approach (ICD-10-PCS; 2017-07-24)
PROC: 0DJ08ZZ Inspection of Upper Intestinal Tract, Via Natural or Artificial Opening Endoscopic (ICD-10-PCS; principal; 2017-07-25 07:30)
DX: K92.2 Gastrointestinal hemorrhage, unspecified (principal); D62 Acute posthemorrhagic anemia; F03.90 Unspecified dementia, unspecified severity, without behavioral disturbance, psychotic disturbance, mood disturbance, and anxiety; K26.9 Duodenal ulcer, unspecified as acute or chronic, without hemorrhage or perforation; K29.80 Duodenitis without bleeding; F17.210 Nicotine dependence, cigarettes, uncomplicated; I10 Essential (primary) hypertension; K44.9 Diaphragmatic hernia without obstruction or gangrene; I25.10 Atherosclerotic heart disease of native coronary artery without angina pectoris; Z95.9 Presence of cardiac and vascular implant and graft, unspecified; Z85.46 Personal history of malignant neoplasm of prostate; Z79.899 Other long term (current) drug therapy

== ENCOUNTER → 2017-08-01 | Outpatient (REF) | payer MEDICARE, OTHER ==
[~2017-08-01] MED LIST changes: +ASPI81TAEC PO; +DONE1TAB62 PO; +FAMO20TA PO; +MEMA1TAB PO; +METO1TAB7 PO; +NAME28CA PO; +PANT40TA2 PO; +SIMV40TA2 PO; +SUCR1TA PO; +ZOCO40TA PO
[2017-08-02 11:08] LABS: CONTROL LINE HPYORI INT CTR LINE PRESENT
== END ==
LOC: M LAB REF 16:35
PROVIDERS: ATTEND Nurse Practitioner Family
DX: K92.1 Melena (principal)

== ENCOUNTER → 2017-09-15 | Outpatient (CLI) | payer MEDICARE, OTHER ==
[2017-09-15 12:57] LABS: PROSTATIC SPECIFIC AG MONITOR < 0.01 NG/ML (< 4.0)
== END ==
LOC: M LAB 11:32
DX: C61 Malignant neoplasm of prostate (principal)
CPT/HCPCS: 84153

== ENCOUNTER 2018-01-26 22:42 | Inpatient (IN) | payer MEDICARE, OTHER ==
[2018-01-27] MEDS: IPRATROPIUM 0.5MG/ALBUTEROL 2.5MG INH SOL UD 3ML (DUONEB)(J7620) NEB ×6 (00:15→21:08)
[2018-01-27] MEDS: AZITHROMYCIN INJ 500 MG, VIAL MATE ADAPTER 1 EACH in D5W 250 ML IV (00:15)
[2018-01-27] MEDS: CEFUROXIME SODIUM 1.5 GM in D5W MINI-BAG PLUS 50 ML IV (00:27)
[2018-01-27 00:29] LABS: BASO # 0.1 10^3/uL (0.0-0.2); BASO % 0.5 % (0.0-1.0); EOS # 0.3 10^3/uL (0.0-0.50); EOS % 2.6 % (0.0-3.0); HEMATOCRIT 38.1 % (42.0-52.0); HEMOGLOBIN 11.4 g/dl (13.5-17.5); IMMATURE GRANULOCYTE % 0.3 % (0-3.0); LYMPH # 1.9 10^3/uL (1.5-4.5); LYMPH % 19.5 % (24.0-44.0); MEAN CORPUSCULAR HEMOGLOBIN 21.1 pg (27.0-33.0); MEAN CORPUSCULAR HGB CONC 29.9 g/dl (32.0-36.5); MEAN CORPUSCULAR VOLUME 70.4 fl (80.0-96.0); MONO # 0.6 10^3/uL (0.0-0.8); MONO % 5.9 % (0.0-5.0); NEUTROPHILS # 6.8 10^3/uL (1.8-7.7); NEUTROPHILS % 71.2 % (36.0-66.0); PLATELET COUNT, AUTOMATED 209 10^3/uL (150-450); RED BLOOD COUNT 5.41 10^6/uL (4.30-6.10); RED CELL DISTRIBUTION WIDTH 20.3 % (11.5-14.5); WHITE BLOOD COUNT 9.5 10^3/uL (4.0-10.0)
[2018-01-27 00:35] LABS: ABG HCO3 24.8 MEQ/L (22.0-26.0); ABG O2 SATURATION 94.1 % (95.0-99.0); ABG PARTIAL PRESSURE CO2 36.9 mmHg (35.0-45.0); ABG PARTIAL PRESSURE O2 68.3 mmHg (75.0-100.0); ABG STANDARD HCO3 25.3 MEQ/L (22.0-26.0); ABG pH (ARTERIAL) 7.446 UNITS (7.350-7.450)
[2018-01-27 00:47] LABS: ANION GAP 8 MEQ/L (8-16); BLOOD UREA NITROGEN 22 MG/DL (7-18); CALCIUM LEVEL 8.5 MG/DL (8.8-10.2); CARBON DIOXIDE LEVEL 27 MEQ/L (21-32); CHLORIDE LEVEL 110 MEQ/L (98-107); CREATININE FOR GFR 1.17 MG/DL (0.70-1.30); GLOMERULAR FILTRATION RATE > 60.0 (>42); GLUCOSE, FASTING 126 MG/DL (70-100); POTASSIUM SERUM 3.6 MEQ/L (3.5-5.1); SODIUM LEVEL 145 MEQ/L (136-145)
[2018-01-27 00:50] LABS: LACTIC ACID SEPSIS PROTOCOL 0.9 MMOL/L (0.4-2.0)
[2018-01-27] MEDS ORDERED: ACETAMINOPHEN TAB 650MG DOSE (2X325MG) PO (04:15)
[2018-01-27] MEDS: NICOTINE 21MG/24HR 1 EA TRANSDERMAL TD (04:30)
[2018-01-27] MEDS: LevoFLOXacin IV 750 MG in APPROPRIATE DILUENT 1 EA IV (05:25)
[2018-01-27] MEDS: ENOXAPARIN 40 MG/0.4 ML SYRINGE (J1650) SC (09:40)
[2018-01-27] MEDS: PANTOPRAZOLE 40MG TAB (PROTONIX) PO (09:41)
[2018-01-27] MEDS: FAMOTIDINE 20 MG TAB PO ×2 (09:41→20:08)
[2018-01-27] MEDS: MEMANTINE 5MG TABLET (NAMENDA) PO ×2 (09:41→20:07)
[2018-01-27] MEDS: predniSONE 20 MG TAB PO (09:41)
[2018-01-27] MEDS: DONEPEZIL 5 MG TAB PO (09:41)
[2018-01-27] MEDS: ASPIRIN 81 MG ENTERIC TAB PO (09:41)
[2018-01-27] MEDS: FUROSEMIDE 20 MG/2 ML VIAL (J1940) IV (18:25)
[2018-01-27] MEDS: SERTRALINE HCL 25 MG TABLET PO (20:08)
[2018-01-27] MEDS: SIMVASTATIN 40 MG TAB PO (20:08)
[2018-01-28] MEDS: IPRATROPIUM 0.5MG/ALBUTEROL 2.5MG INH SOL UD 3ML (DUONEB)(J7620) NEB ×4 (01:56→21:05)
[2018-01-28] MEDS: LevoFLOXacin IV 750 MG in APPROPRIATE DILUENT 1 EA IV (05:52)
[2018-01-28 06:16] LABS: BASO % 0.1 % (0.0-1.0); HEMATOCRIT 35.1 % (42.0-52.0); HEMOGLOBIN 10.6 g/dl (13.5-17.5); IMMATURE GRANULOCYTE % 0.5 % (0-3.0); LYMPH # 1.5 10^3/uL (1.5-4.5); LYMPH % 10.4 % (24.0-44.0); MEAN CORPUSCULAR HEMOGLOBIN 21.1 pg (27.0-33.0); MEAN CORPUSCULAR HGB CONC 30.2 g/dl (32.0-36.5); MEAN CORPUSCULAR VOLUME 69.8 fl (80.0-96.0); MONO # 0.8 10^3/uL (0.0-0.8); MONO % 5.2 % (0.0-5.0); NEUTROPHILS # 12.3 10^3/uL (1.8-7.7); NEUTROPHILS % 83.8 % (36.0-66.0); PLATELET COUNT, AUTOMATED 202 10^3/uL (150-450); RED BLOOD COUNT 5.03 10^6/uL (4.30-6.10); RED CELL DISTRIBUTION WIDTH 19.6 % (11.5-14.5); WHITE BLOOD COUNT 14.7 10^3/uL (4.0-10.0)
[2018-01-28 06:37] LABS: ANION GAP 9 MEQ/L (8-16); BLOOD UREA NITROGEN 21 MG/DL (7-18); CALCIUM LEVEL 8.6 MG/DL (8.8-10.2); CARBON DIOXIDE LEVEL 29 MEQ/L (21-32); CHLORIDE LEVEL 107 MEQ/L (98-107); GLOMERULAR FILTRATION RATE 57.1 (>42); GLUCOSE, FASTING 127 MG/DL (70-100); POTASSIUM SERUM 3.5 MEQ/L (3.5-5.1); SODIUM LEVEL 145 MEQ/L (136-145)
[2018-01-28] MEDS: FAMOTIDINE 20 MG TAB PO ×2 (10:42→21:40)
[2018-01-28] MEDS: DONEPEZIL 5 MG TAB PO (10:42)
[2018-01-28] MEDS: ASPIRIN 81 MG ENTERIC TAB PO (10:42)
[2018-01-28] MEDS: MEMANTINE 5MG TABLET (NAMENDA) PO ×2 (10:42→21:39)
[2018-01-28] MEDS: predniSONE 20 MG TAB PO (10:42)
[2018-01-28] MEDS: ENOXAPARIN 40 MG/0.4 ML SYRINGE (J1650) SC (10:43)
[2018-01-28] MEDS: PANTOPRAZOLE 40MG TAB (PROTONIX) PO (10:43)
[2018-01-28] MEDS: SIMVASTATIN 40 MG TAB PO (21:40)
[2018-01-28] MEDS: SERTRALINE HCL 25 MG TABLET PO (21:40)
[2018-01-29] MEDS: IPRATROPIUM 0.5MG/ALBUTEROL 2.5MG INH SOL UD 3ML (DUONEB)(J7620) NEB ×2 (01:59→07:22)
[2018-01-29] MEDS: LevoFLOXacin IV 750 MG in APPROPRIATE DILUENT 1 EA IV (05:56)
[2018-01-29] MEDS: ENOXAPARIN 40 MG/0.4 ML SYRINGE (J1650) SC (08:11)
[2018-01-29] MEDS: predniSONE 20 MG TAB PO (08:11)
[2018-01-29] MEDS: FAMOTIDINE 20 MG TAB PO (08:12)
[2018-01-29] MEDS: ASPIRIN 81 MG ENTERIC TAB PO (08:12)
[2018-01-29] MEDS: DONEPEZIL 5 MG TAB PO (08:12)
[2018-01-29] MEDS: PANTOPRAZOLE 40MG TAB (PROTONIX) PO (08:12)
[2018-01-29] MEDS: MEMANTINE 5MG TABLET (NAMENDA) PO (08:12)
== END 2018-01-29 10:47 | disposition home or self-care (01) | DRG 192 ==
LOC: M ED 22:42 → M ED INP 01-27 04:12 → M MSPAV 01-27 16:38
DX: J44.1 Chronic obstructive pulmonary disease with (acute) exacerbation (principal); F17.210 Nicotine dependence, cigarettes, uncomplicated; I10 Essential (primary) hypertension; I25.10 Atherosclerotic heart disease of native coronary artery without angina pectoris; K25.9 Gastric ulcer, unspecified as acute or chronic, without hemorrhage or perforation; E78.5 Hyperlipidemia, unspecified; F32.9 Major depressive disorder, single episode, unspecified; F01.50 Vascular dementia, unspecified severity, without behavioral disturbance, psychotic disturbance, mood disturbance, and anxiety; Z79.82 Long term (current) use of aspirin; Z79.899 Other long term (current) drug therapy; Z85.46 Personal history of malignant neoplasm of prostate

== ENCOUNTER → 2018-02-17 | Outpatient (CLI) | payer MEDICARE, OTHER | LOC: M RAD 08:48 | DX: J18.9 Pneumonia, unspecified organism (principal) | CPT/HCPCS: 71046 ==

== ENCOUNTER 2018-03-16 15:12 | Inpatient (IN) | payer MEDICARE, OTHER ==
[2018-03-16 16:40] LABS: VENOUS BASE EXCESS 0.9 (-2.0-2.0); VENOUS HCO3 25.4 MEQ/L (23.0-27.0); VENOUS O2 SATURATION 81.1 % (60.0-80.0); VENOUS PARTIAL PRESSURE CO2 39.8 mmHg (38.0-50.0); VENOUS PARTIAL PRESSURE O2 47.4 mmHg (30.0-50.0); VENOUS PH 7.422 UNITS (7.330-7.430); VENOUS STANDARD HCO3 24.9 MEQ/L; VENOUS TOTAL CO2 26.6 MEQ/L (24.0-28.0)
[2018-03-16 16:41] LABS: BASO % 0.4 % (0.0-1.0); EOS # 0.1 10^3/uL (0.0-0.50); EOS % 1.4 % (0.0-3.0); HEMATOCRIT 41.1 % (42.0-52.0); HEMOGLOBIN 12.2 g/dl (13.5-17.5); IMMATURE GRANULOCYTE % 0.4 % (0-3.0); LYMPH # 1.7 10^3/uL (1.5-4.5); MEAN CORPUSCULAR HEMOGLOBIN 23.6 pg (27.0-33.0); MEAN CORPUSCULAR HGB CONC 29.7 g/dl (32.0-36.5); MEAN CORPUSCULAR VOLUME 79.3 fl (80.0-96.0); MONO # 0.7 10^3/uL (0.0-0.8); MONO % 7.1 % (0.0-5.0); NEUTROPHILS # 6.8 10^3/uL (1.8-7.7); NEUTROPHILS % 72.7 % (36.0-66.0); PLATELET COUNT, AUTOMATED 245 10^3/uL (150-450); RED BLOOD COUNT 5.18 10^6/uL (4.30-6.10); RED CELL DISTRIBUTION WIDTH 23.9 % (11.5-14.5); WHITE BLOOD COUNT 9.3 10^3/uL (4.0-10.0)
[2018-03-16 17:13] LABS: LACTIC ACID SEPSIS PROTOCOL 1.3 MMOL/L (0.4-2.0)
[2018-03-16 17:14] LABS: PROTHROMBIN TIME 16.4 SECONDS (12.1-14.4)
[2018-03-16 17:15] LABS: ALBUMIN 3.4 GM/DL (3.2-5.2); ALKALINE PHOSPHATASE 77 U/L (45-117); ALT/SGPT 33 U/L (12-78); ANION GAP 8 MEQ/L (8-16); AST/SGOT 28 U/L (7-37); BILIRUBIN,DIRECT 0.3 MG/DL (0.0-0.2); BILIRUBIN,TOTAL 0.9 MG/DL (0.2-1.0); BLOOD UREA NITROGEN 17 MG/DL (7-18); CALCIUM LEVEL 9.1 MG/DL (8.8-10.2); CARBON DIOXIDE LEVEL 27 MEQ/L (21-32); CHLORIDE LEVEL 112 MEQ/L (98-107); CPK CREATINE PHOSPHOKINASE 100 U/L (39-308); CREATININE FOR GFR 1.34 MG/DL (0.70-1.30); GLUCOSE, FASTING 108 MG/DL (70-100); PARTIAL THROMBOPLASTIN TIME 31.4 SECONDS (25.4-37.6); POTASSIUM SERUM 3.9 MEQ/L (3.5-5.1); SODIUM LEVEL 147 MEQ/L (136-145); TOTAL PROTEIN 6.5 GM/DL (6.4-8.2); TROPONIN I 0.08 NG/ML (< 0.10)
[2018-03-16 17:21] LABS: CK-MB VALUE MASS 4.4 NG/ML (<3.6); NT-PRO BNP 7873 PG/ML (<450)
[2018-03-16] MEDS: FUROSEMIDE 40 MG/4 ML VIAL (J1940) IV ×2 (18:49→23:24)
[2018-03-16] MEDS ORDERED: IPRATROPIUM 0.5MG/ALBUTEROL 2.5MG INH SOL UD 3ML (DUONEB)(J7620) NEB (21:15)
[2018-03-16] MEDS ORDERED: zolPIDEM TARTRATE 5 MG TAB PO (22:00)
[2018-03-17] MEDS: ENOXAPARIN 100MG/1ML SYRINGE (J1650) SC (00:11)
[2018-03-17] MEDS: FAMOTIDINE 20 MG TAB PO ×3 (00:11→21:38)
[2018-03-17] MEDS: MEMANTINE 5MG TABLET (NAMENDA) PO ×3 (00:11→21:38)
[2018-03-17] MEDS: SERTRALINE HCL 25 MG TABLET PO ×2 (00:11→21:37)
[2018-03-17] MEDS: METOPROLOL SUCC *XL* 25MG TAB (TopROL *XL*) PO ×2 (00:12→21:42)
[2018-03-17] MEDS: SIMVASTATIN 40 MG TAB PO ×2 (00:12→21:38)
[2018-03-17] MEDS: PANTOPRAZOLE 40MG TAB (PROTONIX) PO ×2 (01:18→21:38)
[2018-03-17] MEDS: traZODone 25MG PER 1/2 TABLET PO ×2 (01:18→21:37)
[2018-03-17] MEDS: NYSTATIN CREAM 15 GM EXT ×2 (01:20→08:59)
[2018-03-17 01:27] LABS: KETONE, URINE AUTO RFX NEGATIVE (NEGATIVE); LEUKOCYTE ESTERASE UR AUTO RFX NEGATIVE (NEGATIVE); NITRITE, URINE AUTO RFX NEGATIVE (NEGATIVE); RBC, URINE AUTO RFX 0 /HPF (0-3); SPECIFIC GRAVITY UR AUTO RFX 1.004 (1.002-1.035); SQUAM EPITHELIAL CELL UR AURFX 0 /HPF (0-6); WBC, URINE AUTO RFX 1 /HPF (0-3)
[2018-03-17 02:15] LABS: MAGNESIUM LEVEL 2.2 MG/DL (1.8-2.4)
[2018-03-17 07:36] LABS: ANION GAP 9 MEQ/L (8-16); BLOOD UREA NITROGEN 15 MG/DL (7-18); CALCIUM LEVEL 8.2 MG/DL (8.8-10.2); CARBON DIOXIDE LEVEL 31 MEQ/L (21-32); CHLORIDE LEVEL 110 MEQ/L (98-107); CREATININE FOR GFR 1.35 MG/DL (0.70-1.30); GLOMERULAR FILTRATION RATE 54.6 (>42); GLUCOSE, FASTING 114 MG/DL (70-100); POTASSIUM SERUM 3.3 MEQ/L (3.5-5.1); SODIUM LEVEL 150 MEQ/L (136-145)
[2018-03-17] MEDS: IPRATROPIUM 0.5MG/ALBUTEROL 2.5MG INH SOL UD 3ML (DUONEB)(J7620) NEB ×4 (07:49→20:43)
[2018-03-17] MEDS: NICOTINE 14 MG/24 HR TRANSDERMAL TD (08:56)
[2018-03-17] MEDS: FUROSEMIDE 40 MG/4 ML VIAL (J1940) IV (08:57)
[2018-03-17] MEDS: ASPIRIN 81 MG ENTERIC TAB PO (08:58)
[2018-03-17] MEDS: DONEPEZIL 5 MG TAB PO (08:58)
[2018-03-17] MEDS: POTASSIUM CHLORIDE 10 MEQ SR TABLET PO (11:05)
[2018-03-17 11:29] LABS: CK-MB VALUE MASS 4.3 NG/ML (<3.6); CPK CREATINE PHOSPHOKINASE 104 U/L (39-308); MB/CK RELATIVE INDEX 4.13 (< OR =4); NT-PRO BNP 7943 PG/ML (<450); TROPONIN I 0.08 NG/ML (< 0.10)
[2018-03-17 18:41] LABS: ANION GAP 6 MEQ/L (8-16); BLOOD UREA NITROGEN 17 MG/DL (7-18); CALCIUM LEVEL 8.3 MG/DL (8.8-10.2); CARBON DIOXIDE LEVEL 35 MEQ/L (21-32); CHLORIDE LEVEL 107 MEQ/L (98-107); CREATININE FOR GFR 1.55 MG/DL (0.70-1.30); GLOMERULAR FILTRATION RATE 46.5 (>42); GLUCOSE, FASTING 131 MG/DL (70-100); POTASSIUM SERUM 3.2 MEQ/L (3.5-5.1); SODIUM LEVEL 148 MEQ/L (136-145)
[2018-03-17] MEDS ORDERED: PILL CRUSHER/CUTTER 1 EACH XX (22:30)
[2018-03-18 01:08] LABS: ANION GAP 7 MEQ/L (8-16); BLOOD UREA NITROGEN 19 MG/DL (7-18); CALCIUM LEVEL 8.4 MG/DL (8.8-10.2); CARBON DIOXIDE LEVEL 33 MEQ/L (21-32); CHLORIDE LEVEL 108 MEQ/L (98-107); CREATININE FOR GFR 1.59 MG/DL (0.70-1.30); GLOMERULAR FILTRATION RATE 45.2 (>42); GLUCOSE, FASTING 126 MG/DL (70-100); POTASSIUM SERUM 3.3 MEQ/L (3.5-5.1); SODIUM LEVEL 148 MEQ/L (136-145)
[2018-03-18] MEDS: POTASSIUM CHLORIDE 10 MEQ SR TABLET PO (03:39)
[2018-03-18 03:41] LABS: PHOSPHORUS LEVEL 4.5 MG/DL (2.5-4.9)
[2018-03-18 06:26] LABS: ANION GAP 7 MEQ/L (8-16); BLOOD UREA NITROGEN 18 MG/DL (7-18); CALCIUM LEVEL 8.4 MG/DL (8.8-10.2); CARBON DIOXIDE LEVEL 33 MEQ/L (21-32); CHLORIDE LEVEL 107 MEQ/L (98-107); GLOMERULAR FILTRATION RATE 48.3 (>42); GLUCOSE, FASTING 139 MG/DL (70-100); POTASSIUM SERUM 3.7 MEQ/L (3.5-5.1); SODIUM LEVEL 147 MEQ/L (136-145)
[2018-03-18 06:48] LABS: BASO % 0.4 % (0.0-1.0); EOS # 0.2 10^3/uL (0.0-0.50); EOS % 1.7 % (0.0-3.0); HEMATOCRIT 39.9 % (42.0-52.0); HEMOGLOBIN 11.4 g/dl (13.5-17.5); IMMATURE GRANULOCYTE % 0.2 % (0-3.0); LYMPH % 19.7 % (24.0-44.0); MEAN CORPUSCULAR HEMOGLOBIN 22.7 pg (27.0-33.0); MEAN CORPUSCULAR HGB CONC 28.6 g/dl (32.0-36.5); MEAN CORPUSCULAR VOLUME 79.5 fl (80.0-96.0); MONO # 0.6 10^3/uL (0.0-0.8); MONO % 6.2 % (0.0-5.0); NEUTROPHILS # 7.2 10^3/uL (1.8-7.7); NEUTROPHILS % 71.8 % (36.0-66.0); PLATELET COUNT, AUTOMATED 236 10^3/uL (150-450); RED BLOOD COUNT 5.02 10^6/uL (4.30-6.10); RED CELL DISTRIBUTION WIDTH 22.5 % (11.5-14.5)
[2018-03-18 06:49] LABS: C REACTIVE PROTEIN QUANTITATIV < 0.30 MG/DL (0.00-0.30)
[2018-03-18] MEDS: IPRATROPIUM 0.5MG/ALBUTEROL 2.5MG INH SOL UD 3ML (DUONEB)(J7620) NEB ×4 (07:08→21:12)
[2018-03-18] MEDS: NYSTATIN CREAM 15 GM EXT (09:16)
[2018-03-18] MEDS: FAMOTIDINE 20 MG TAB PO ×2 (09:16→21:17)
[2018-03-18] MEDS: ASPIRIN 81 MG ENTERIC TAB PO (09:16)
[2018-03-18] MEDS: DONEPEZIL 5 MG TAB PO (09:17)
[2018-03-18] MEDS: MEMANTINE 5MG TABLET (NAMENDA) PO ×2 (09:17→21:16)
[2018-03-18] MEDS: NICOTINE 14 MG/24 HR TRANSDERMAL TD (09:18)
[2018-03-18 12:40] LABS: ERYTHROCYTE SEDIMENTATION RATE 16 mm/hr (0-20)
[2018-03-18 12:49] LABS: ANION GAP 5 MEQ/L (8-16); BLOOD UREA NITROGEN 17 MG/DL (7-18); CALCIUM LEVEL 8.6 MG/DL (8.8-10.2); CARBON DIOXIDE LEVEL 31 MEQ/L (21-32); CHLORIDE LEVEL 108 MEQ/L (98-107); CREATININE FOR GFR 1.31 MG/DL (0.70-1.30); GLOMERULAR FILTRATION RATE 56.5 (>42); GLUCOSE, FASTING 128 MG/DL (70-100); POTASSIUM SERUM 3.6 MEQ/L (3.5-5.1); SODIUM LEVEL 144 MEQ/L (136-145)
[2018-03-18 18:53] LABS: ANION GAP 9 MEQ/L (8-16); BLOOD UREA NITROGEN 18 MG/DL (7-18); CALCIUM LEVEL 8.5 MG/DL (8.8-10.2); CARBON DIOXIDE LEVEL 31 MEQ/L (21-32); CHLORIDE LEVEL 106 MEQ/L (98-107); CREATININE FOR GFR 1.55 MG/DL (0.70-1.30); GLOMERULAR FILTRATION RATE 46.5 (>42); GLUCOSE, FASTING 139 MG/DL (70-100); POTASSIUM SERUM 3.5 MEQ/L (3.5-5.1); SODIUM LEVEL 146 MEQ/L (136-145)
[2018-03-18] MEDS: SERTRALINE HCL 25 MG TABLET PO (21:16)
[2018-03-18] MEDS: SIMVASTATIN 40 MG TAB PO (21:16)
[2018-03-18] MEDS: PANTOPRAZOLE 40MG TAB (PROTONIX) PO (21:16)
[2018-03-18] MEDS: traZODone 25MG PER 1/2 TABLET PO (21:17)
[2018-03-18] MEDS: METOPROLOL SUCC *XL* 25MG TAB (TopROL *XL*) PO (21:17)
[2018-03-18] MEDS: ENTRESTO 24-26MG TABLET (SACUBITRIL/VALSARTAN) PO (22:32)
[2018-03-19 00:25] LABS: ANION GAP 7 MEQ/L (8-16); BLOOD UREA NITROGEN 18 MG/DL (7-18); CALCIUM LEVEL 8.6 MG/DL (8.8-10.2); CARBON DIOXIDE LEVEL 31 MEQ/L (21-32); CHLORIDE LEVEL 107 MEQ/L (98-107); CREATININE FOR GFR 1.54 MG/DL (0.70-1.30); GLOMERULAR FILTRATION RATE 46.9 (>42); GLUCOSE, FASTING 123 MG/DL (70-100); POTASSIUM SERUM 3.3 MEQ/L (3.5-5.1); SODIUM LEVEL 145 MEQ/L (136-145)
[2018-03-19] MEDS: POTASSIUM CHLORIDE 10 MEQ SR TABLET PO (02:00)
[2018-03-19] MEDS: RAMELTEON 8 MG TAB (ROZEREM) PO ×2 (02:04→20:19)
[2018-03-19 06:30] LABS: ANION GAP 6 MEQ/L (8-16); BLOOD UREA NITROGEN 18 MG/DL (7-18); CALCIUM LEVEL 8.5 MG/DL (8.8-10.2); CARBON DIOXIDE LEVEL 31 MEQ/L (21-32); CHLORIDE LEVEL 108 MEQ/L (98-107); CREATININE FOR GFR 1.43 MG/DL (0.70-1.30); GLUCOSE, FASTING 124 MG/DL (70-100); POTASSIUM SERUM 3.9 MEQ/L (3.5-5.1); SODIUM LEVEL 145 MEQ/L (136-145)
[2018-03-19] MEDS: IPRATROPIUM 0.5MG/ALBUTEROL 2.5MG INH SOL UD 3ML (DUONEB)(J7620) NEB ×4 (07:10→20:00)
[2018-03-19] MEDS: NICOTINE 14 MG/24 HR TRANSDERMAL TD (08:10)
[2018-03-19] MEDS: DONEPEZIL 5 MG TAB PO (08:11)
[2018-03-19] MEDS: FAMOTIDINE 20 MG TAB PO ×2 (08:11→20:18)
[2018-03-19] MEDS: ENTRESTO 24-26MG TABLET (SACUBITRIL/VALSARTAN) PO ×2 (08:11→20:20)
[2018-03-19] MEDS: MEMANTINE 5MG TABLET (NAMENDA) PO ×2 (08:11→20:18)
[2018-03-19 13:26] LABS: ANION GAP 7 MEQ/L (8-16); BLOOD UREA NITROGEN 17 MG/DL (7-18); CALCIUM LEVEL 8.5 MG/DL (8.8-10.2); CARBON DIOXIDE LEVEL 31 MEQ/L (21-32); CHLORIDE LEVEL 109 MEQ/L (98-107); GLUCOSE, FASTING 124 MG/DL (70-100); POTASSIUM SERUM 4.1 MEQ/L (3.5-5.1); SODIUM LEVEL 147 MEQ/L (136-145)
[2018-03-19] MEDS: RIVAROXABAN 15 MG TAB (XARELTO) PO (18:16)
[2018-03-19 18:31] LABS: ANION GAP 8 MEQ/L (8-16); BLOOD UREA NITROGEN 16 MG/DL (7-18); CALCIUM LEVEL 8.1 MG/DL (8.8-10.2); CARBON DIOXIDE LEVEL 30 MEQ/L (21-32); CHLORIDE LEVEL 109 MEQ/L (98-107); CREATININE FOR GFR 1.29 MG/DL (0.70-1.30); GLOMERULAR FILTRATION RATE 57.5 (>42); GLUCOSE, FASTING 122 MG/DL (70-100); POTASSIUM SERUM 3.6 MEQ/L (3.5-5.1); SODIUM LEVEL 147 MEQ/L (136-145)
[2018-03-19] MEDS: SIMVASTATIN 40 MG TAB PO (20:17)
[2018-03-19] MEDS: traZODone 25MG PER 1/2 TABLET PO (20:17)
[2018-03-19] MEDS: PANTOPRAZOLE 40MG TAB (PROTONIX) PO (20:18)
[2018-03-19] MEDS: SERTRALINE HCL 25 MG TABLET PO (20:18)
[2018-03-19] MEDS: METOPROLOL SUCC *XL* 25MG TAB (TopROL *XL*) PO (20:20)
[2018-03-20 00:56] LABS: ANION GAP 6 MEQ/L (8-16); BLOOD UREA NITROGEN 17 MG/DL (7-18); CALCIUM LEVEL 8.1 MG/DL (8.8-10.2); CARBON DIOXIDE LEVEL 30 MEQ/L (21-32); CHLORIDE LEVEL 110 MEQ/L (98-107); CREATININE FOR GFR 1.26 MG/DL (0.70-1.30); GLOMERULAR FILTRATION RATE 59.1 (>42); GLUCOSE, FASTING 125 MG/DL (70-100); POTASSIUM SERUM 3.5 MEQ/L (3.5-5.1); SODIUM LEVEL 146 MEQ/L (136-145)
[2018-03-20 07:02] LABS: HEMATOCRIT 40.3 % (42.0-52.0); HEMOGLOBIN 11.8 g/dl (13.5-17.5); MEAN CORPUSCULAR HEMOGLOBIN 23.3 pg (27.0-33.0); MEAN CORPUSCULAR HGB CONC 29.3 g/dl (32.0-36.5); MEAN CORPUSCULAR VOLUME 79.6 fl (80.0-96.0); PLATELET COUNT, AUTOMATED 209 10^3/uL (150-450); RED BLOOD COUNT 5.06 10^6/uL (4.30-6.10); RED CELL DISTRIBUTION WIDTH 22.4 % (11.5-14.5); WHITE BLOOD COUNT 10.2 10^3/uL (4.0-10.0)
[2018-03-20 07:21] LABS: IRON (FE) 24 UG/DL (65-175); PERCENT SATURATION 7.2 % (19.7-50.0); TOTAL IRON BINDING CAPACITY 332 UG/DL (250-450)
[2018-03-20] MEDS: IPRATROPIUM 0.5MG/ALBUTEROL 2.5MG INH SOL UD 3ML (DUONEB)(J7620) NEB (08:04)
[2018-03-20] MEDS: FAMOTIDINE 20 MG TAB PO (09:02)
[2018-03-20] MEDS: DONEPEZIL 5 MG TAB PO (09:02)
[2018-03-20] MEDS: MEMANTINE 5MG TABLET (NAMENDA) PO (09:02)
[2018-03-20] MEDS: ENTRESTO 24-26MG TABLET (SACUBITRIL/VALSARTAN) PO (09:02)
[2018-03-20] MEDS: NICOTINE 14 MG/24 HR TRANSDERMAL TD (09:03)
[2018-03-21 00:06] LABS: BODY FLUID CULTURE Not Indicated (.); LEGIONELLA ANTIGEN URINE Negative (Negative); ORGANISM ID Not indicated. (.); SPECIMEN SOURCE Urine (.); URINE STREP PNEUMONIAE ANTIGEN Negative (Negative)
== END 2018-03-20 09:25 | disposition home health service (06) | DRG 291 ==
LOC: M ED 15:12 → M MSPAV 23:34
DX: I13.0 Hypertensive heart and chronic kidney disease with heart failure and stage 1 through stage 4 chronic kidney disease, or unspecified chronic kidney disease (principal); I50.23 Acute on chronic systolic (congestive) heart failure; E87.0 Hyperosmolality and hypernatremia; N17.9 Acute kidney failure, unspecified; J84.116 Cryptogenic organizing pneumonia; F03.90 Unspecified dementia, unspecified severity, without behavioral disturbance, psychotic disturbance, mood disturbance, and anxiety; E78.5 Hyperlipidemia, unspecified; I25.10 Atherosclerotic heart disease of native coronary artery without angina pectoris; I48.91 Unspecified atrial fibrillation; I34.0 Nonrheumatic mitral (valve) insufficiency; F32.9 Major depressive disorder, single episode, unspecified; N18.3 Chronic kidney disease, stage 3 (moderate); I42.9 Cardiomyopathy, unspecified; F17.210 Nicotine dependence, cigarettes, uncomplicated; Z95.5 Presence of coronary angioplasty implant and graft; Z85.46 Personal history of malignant neoplasm of prostate; Z90.79 Acquired absence of other genital organ(s); Z79.82 Long term (current) use of aspirin; Z79.899 Other long term (current) drug therapy

== ENCOUNTER → 2018-05-06 | Outpatient (CLI) | payer MEDICARE, OTHER | LOC: M WUC 09:37 | DX: R06.02 Shortness of breath (principal); R91.8 Other nonspecific abnormal finding of lung field; I70.0 Atherosclerosis of aorta | CPT/HCPCS: 71046 ==

== ENCOUNTER → 2018-06-17 | Outpatient (CLI) | payer MEDICARE, OTHER | LOC: M RAD 08:25 | DX: R91.8 Other nonspecific abnormal finding of lung field (principal); J43.9 Emphysema, unspecified; I25.10 Atherosclerotic heart disease of native coronary artery without angina pectoris; N28.1 Cyst of kidney, acquired; J18.9 Pneumonia, unspecified organism | CPT/HCPCS: 71250 ==

== ENCOUNTER → 2018-08-20 | Outpatient (CLI) | payer MEDICARE, OTHER ==
[~2018-08-20] MED LIST changes: -AMLO10TA2 PO; +AMLO10TA5 PO; +ASPI1TAB PO; +AZIT-12 PO; +DONE1TAB62; +ENTR1TAB PO; +FAMO1TAB11 PO; +IPRA0.00 INH; +KLOR20TA42 PO; +LASI20TA3 PO; +MEMA1TAB2; +MEMA1TAB2 PO; +NAME10TA PO; +NICODIS2 TD; -PANT40TA2 PO; +PANT40TA3 PO; +PRED10TA2 PO; +PROAAER10 INH; +SERT25TA88 PO; +SLOW142T PO; +TOPR25TA13 PO; +TRAZ-160 PO; +TRAZ25TA PO; +VENTAER INH; +XARE15TA PO
--- NOTE | 2018-08-20 16:02 | REP ---
CT CHEST WITHOUT IV CONTRAST: COMPARISON: 06/17/2018. CT chest performed without IV contrast. Sagittal and coronal reconstruction images are performed. Previously noted bilateral upper lobe infiltrates have improved. In the left upper lobe, there is minimal residual infiltrate. There is stable interstitial fibrosis in the left lower lobe. No new infiltrate is seen in the left lung. On the right, there is also mild scattered residual peripheral infiltrate in the right upper lobe. Subcentimeter nodular density is seen anteromedially in the right upper lobe. There is a new area of infiltrate in the medial segment of the right middle lobe. There is diffuse thickening of the bronchial vargas. There is mild interstitial type infiltrate in the medial right lower lobe. Multiple subcentimeter mediastinal lymph nodes are present without definite adenopathy. The heart is not enlarged. There is no pleural or pericardial effusion. Moderate atherosclerotic calcifications are seen of the thoracic aorta without aneurysm. In the visualized portions of the upper abdomen, there are multiple bilateral renal cysts again noted. There are degenerative changes of the spine. IMPRESSION: Improved bilateral upper lobe infiltrates with mild residual peripheral infiltrates at these locations. There is new consolidative infiltrate in the medial segment of the right middle lobe. There is also new mild interstitial infiltrate in the medial right lower lobe. Electronically Signed by Marco Ayers MD 08/20/2018 08:25 P
== END ==
LOC: M RAD 12:41
PROVIDERS: ATTEND Internal Medicine Pulmonary Disease
DX: R91.8 Other nonspecific abnormal finding of lung field (principal)

== ENCOUNTER 2018-09-14 18:17 | Emergency (ER) | payer MEDICARE, OTHER ==
[~2018-09-14] VITALS: Ht 182.9 cm; Wt 97.7 kg
[2018-09-14] MEDS ORDERED: FERR325T3 PO (18:27)
[2018-09-14] MEDS ORDERED: POTA20TA6 (18:27)
[2018-09-14] MEDS ORDERED: FURO20TA2 (18:27)
[2018-09-14] MEDS ORDERED: ANORO (18:27)
[2018-09-14] MEDS ORDERED: ENTR1TAB PO (18:27)
[2018-09-14 19:02] LABS: BASO % 0.3 % (0.0-1.0); EOS # 0.2 10^3/uL (0.0-0.50); EOS % 1.8 % (0.0-3.0); HEMATOCRIT 46.8 % (42.0-52.0); HEMOGLOBIN 14.9 g/dl (13.5-17.5); LYMPH # 1.3 10^3/uL (1.5-4.5); LYMPH % 12.7 % (24.0-44.0); MEAN CORPUSCULAR HEMOGLOBIN 28.5 pg (27.0-33.0); MEAN CORPUSCULAR HGB CONC 31.8 g/dl (32.0-36.5); MEAN CORPUSCULAR VOLUME 89.7 fl (80.0-96.0); MONO # 0.8 10^3/uL (0.0-0.8); NEUTROPHILS # 8.1 10^3/uL (1.8-7.7); NEUTROPHILS % 76.7 % (36.0-66.0); PLATELET COUNT, AUTOMATED 167 10^3/uL (150-450); RED BLOOD COUNT 5.22 10^6/uL (4.30-6.10); WHITE BLOOD COUNT 10.5 10^3/uL (4.0-10.0)
[2018-09-14 19:40] LABS: ALBUMIN 3.7 GM/DL (3.2-5.2); BILIRUBIN,DIRECT 0.5 MG/DL (0.0-0.2); BILIRUBIN,TOTAL 1.9 MG/DL (0.2-1.0); CALCIUM LEVEL 8.8 MG/DL (8.8-10.2); CREATININE FOR GFR 1.3 MG/DL (0.70-1.30); MB/CK RELATIVE INDEX 3.72 (< OR =4); POTASSIUM SERUM 3.5 MEQ/L (3.5-5.1); THYROID STIMULATING HORMONE 2.97 uIU/ML (0.358-3.740); TOTAL PROTEIN 6.8 GM/DL (6.4-8.2); TROPONIN I 0.05 NG/ML (< 0.10)
--- NOTE | 2018-09-14 20:18 | ECGEPIP ---
Stationary ECG Study [facility] - ED Test Date: 2018-09-14 Pat Name: JIMMIE HALL Department: Room: - Gender: M Adoption Agent: [facility] : 1940 Requested By: ANITA Zhou Order Number: [id number] Reading MD: Bruce Colin Measurements Intervals [place] Rate: 86 P: [place]: 0 QRS: -73 QRSD: 135 T: 88 QT: 421 QTc: 504 Interpretive Statements ATRIAL FIBRILLATION MARKED LEFT AXIS DEVIATION INTRAVENTRICULAR CONDUCTION DELAY ANTEROSEPTAL MYOCARDIAL INFARCTION, OF INDETERMINATE AGE NONSPECIFIC ST T WAVE CHANGES PROLONGED QTC CW 03/16/[address] T WAVE CHANGES Electronically Signed On 09-14-2018 20:18:45 EST by Bruce Colin
--- NOTE | 2018-09-14 21:18 | REP ---
CHEST, TWO VIEWS: Two views of the chest are performed and compared to prior study of 05/06/2018. There is no acute infiltrate. There is mild chronic interstitial prominence. Heart appears upper limits of normal in size. There is calcification and tortuosity of the thoracic aorta. Mediastinal silhouette is unchanged. There are mild degenerative changes of the spine. IMPRESSION: No evidence of acute infiltrate. Electronically Signed by Marco Ayers MD 09/16/2018 01:30 P
[2018-09-14 22:07] LABS: INFLUENZA A AMPLIFICATION NEGATIVE (NEGATIVE); INFLUENZA B AMPLIFICATION NEGATIVE (NEGATIVE)
[2018-09-14 22:30] VITALS: BP 123/87
--- NOTE | 2018-09-14 22:45 | REPVR ---
EXAM: CT Head Without Contrast EXAM DATE/TIME: 09/14/2018 9:45 PM CLINICAL HISTORY: 78 years old, male; Signs and symptoms; Altered mental status/memory loss TECHNIQUE: Axial computed tomography images of the head/brain without contrast. All CT scans at this facility use at least one of these dose optimization techniques: automated exposure control; mA and/or kV adjustment per patient size (includes targeted exams where dose is matched to clinical indication); or iterative reconstruction. COMPARISON: No relevant prior studies available. FINDINGS: Brain: Chronic infarcts left basal ganglia. There is parenchymal volume loss. White matter changes are demonstrated in the subcortical, centrum semiovale and periventricular white matter consistent with small vessel white matter angiopathic gliosis. Ventricles: The degree of ventricular dilatation is normal for age. No pathologic enlargement demonstrated. Bones/joints: Unremarkable. No acute fracture. Sinuses: Visualized sinuses are unremarkable. No acute sinusitis. Mastoid air cells: Visualized mastoid air cells are unremarkable. No mastoid effusion. Soft tissues: Unremarkable. IMPRESSION: There is parenchymal volume loss. White matter changes are demonstrated in the subcortical, centrum semiovale and periventricular white matter consistent with small vessel white matter angiopathic gliosis. No acute findings. Electronically signed by: Marcus Ngo On 09/14/2018 22:44:43 PM
[2018-09-14] MEDS ORDERED: AZIT-12 PO (22:51)
== END 2018-09-14 23:22 | disposition home or self-care (01) ==
LOC: M ED 18:17
DX: J06.9 Acute upper respiratory infection, unspecified (principal); I48.91 Unspecified atrial fibrillation; I11.0 Hypertensive heart disease with heart failure; I25.10 Atherosclerotic heart disease of native coronary artery without angina pectoris; E78.5 Hyperlipidemia, unspecified; J44.9 Chronic obstructive pulmonary disease, unspecified; F32.9 Major depressive disorder, single episode, unspecified; K26.4 Chronic or unspecified duodenal ulcer with hemorrhage; F17.200 Nicotine dependence, unspecified, uncomplicated; Z79.899 Other long term (current) drug therapy; Z79.01 Long term (current) use of anticoagulants

== ENCOUNTER → 2018-10-03 | Outpatient (REF) | payer MEDICARE, OTHER ==
[~2018-10-03] MED LIST changes: +ANORO; +FERR325T3 PO; +FURO20TA2; +POTA20TA6
== END ==
LOC: M LAB REF 06:00
PROVIDERS: ATTEND Nurse Practitioner Family
DX: J44.9 Chronic obstructive pulmonary disease, unspecified (principal); R05 Cough

== ENCOUNTER → 2018-11-30 | Outpatient (CLI) | payer MEDICARE, OTHER ==
[~2018-11-30] MED LIST changes: +ASPI-1 PO; -ASPI1TAB PO; -ASPI325T PO; +ASPI81TA26 PO; +HYDR-2541 PO; -SERT25TA PO; +SERT25TA85 PO; +TOPR25TA PO; -TOPR25TA13 PO
--- NOTE | 2018-11-30 09:37 | REP ---
Chest x-ray: Two views. History: COPD. Comparison study: September 14, 2018. Findings: There is a new infiltrate in the perihilar region on the left in the upper lobe distribution. The lungs are hyperinflated as before. Pleural angles are sharp. Heart is mildly enlarged. Cardiothoracic ratio measures 51.3%. The aorta is tortuous. No pleural effusion is seen. Mild degenerative changes are noted in the thoracic spine. Impression: Left upper lobe infiltrate consistent with pneumonia. Electronically Signed by Ryan Ortiz MD 11/30/2018 09:29 A
== END ==
LOC: M RAD 08:43
PROVIDERS: ATTEND Internal Medicine Pulmonary Disease
DX: J44.9 Chronic obstructive pulmonary disease, unspecified (principal); R91.8 Other nonspecific abnormal finding of lung field

== ENCOUNTER 2018-12-13 06:06 | Inpatient (IN) | payer MEDICARE, OTHER ==
[~2018-12-13] VITALS: Ht 185.4 cm; Wt 98.8 kg
[~2018-12-13 06:06] MED LIST changes: -FURO20TA2; +FURO20TA2 PO; -POTA20TA6; +POTA20TA6 PO
[2018-12-13] MEDS ORDERED: PRED10TA2 PO (06:19)
[2018-12-13] MEDS ORDERED: ENTR1TAB PO (06:19)
[2018-12-13] MEDS ORDERED: ROCA0.25 PO (06:19)
[2018-12-13] MEDS ORDERED: dexameTHASONE 20 MG/5 ML VIAL (J1100) IV ONE (07:00)
[2018-12-13] MEDS: IPRATROPIUM 0.5MG/ALBUTEROL 2.5MG INH SOL UD 3ML (DUONEB)(J7620) NEB SCH ×3 (07:19→08:24)
[2018-12-13 08:08] LABS: BASO # 0.1 10^3/uL (0.0-0.2); BASO % 0.4 % (0.0-1.0); EOS # 0.1 10^3/uL (0.0-0.50); HEMATOCRIT 47.4 % (42.0-52.0); HEMOGLOBIN 15.1 g/dl (13.5-17.5); LYMPH # 1.7 10^3/uL (1.5-4.5); MEAN CORPUSCULAR HEMOGLOBIN 29.7 pg (27.0-33.0); MEAN CORPUSCULAR HGB CONC 31.9 g/dl (32.0-36.5); MEAN CORPUSCULAR VOLUME 93.3 fl (80.0-96.0); MONO # 0.8 10^3/uL (0.0-0.8); MONO % 5.6 % (0.0-5.0); NEUTROPHILS # 11.1 10^3/uL (1.8-7.7); NEUTROPHILS % 80.3 % (36.0-66.0); PLATELET COUNT, AUTOMATED 190 10^3/uL (150-450); RED BLOOD COUNT 5.08 10^6/uL (4.30-6.10); WHITE BLOOD COUNT 13.9 10^3/uL (4.0-10.0)
[2018-12-13] MEDS ORDERED: FUROSEMIDE 40 MG/4 ML VIAL (J1940) IV ONE (08:15)
[2018-12-13 08:24] LABS: BLOOD UREA NITROGEN 24 MG/DL (7-18); CALCIUM LEVEL 9.2 MG/DL (8.8-10.2); CARBON DIOXIDE LEVEL 32 MEQ/L (21-32); CHLORIDE LEVEL 102 MEQ/L (98-107); CPK CREATINE PHOSPHOKINASE 142 U/L (39-308); CREATININE FOR GFR 1.24 MG/DL (0.70-1.30); GLOMERULAR FILTRATION RATE > 60.0 (>42); GLUCOSE, FASTING 207 MG/DL (70-100); MB/CK RELATIVE INDEX 4.58 (< OR =4); NT-PRO BNP 6891 PG/ML (<450); POTASSIUM SERUM 4.3 MEQ/L (3.5-5.1); SODIUM LEVEL 141 MEQ/L (136-145); TROPONIN I 0.07 NG/ML (< 0.10)
[2018-12-13 08:44] LABS: ABG BASE EXCESS 5.5 (-2.0-2.0); ABG O2 SATURATION 99.2 % (95.0-99.0); ABG PARTIAL PRESSURE CO2 38.5 mmHg (35.0-45.0); ABG PARTIAL PRESSURE O2 145.2 mmHg (75.0-100.0); ABG STANDARD HCO3 29.5 MEQ/L (22.0-26.0); ABG TOTAL CO2 30.2 MEQ/L (23.0-31.0); ABG pH (ARTERIAL) 7.495 UNITS (7.350-7.450)
[2018-12-13] MEDS ORDERED: LevoFLOXacin IV 750 MG in APPROPRIATE DILUENT 1 EA IV ONE (09:30)
[2018-12-13] MEDS ORDERED: ANOR1AER PO (10:10)
[2018-12-13] MEDS ORDERED: PANT40TA3 PO (10:10)
[2018-12-13] MEDS ORDERED: TRAZ-186 PO (10:12)
[2018-12-13] MEDS ORDERED: [UNRECOGNIZED DRUG - CODE] PO (10:12)
[2018-12-13] MEDS ORDERED: XARE15TA PO (10:13)
--- NOTE | 2018-12-13 10:21 | REP ---
CT CHEST WITHOUT IV CONTRAST: CT chest performed without IV contrast and compared to prior study of 08/20/2018 as well as other prior exams. There is consolidative infiltrate in the left upper lobe anteriorly. Air bronchograms are present. There is very mild hazy infiltrate in the left lower lobe. Previously noted right middle lobe infiltrate has essentially resolved. There is scattered interstitial fibrotic scarring bilaterally with some emphysematous changes particularly in the right upper lobe. A tiny nodular density 4 mm in diameter is seen in the anterior right upper lobe unchanged since the prior CT. This is of doubtful significance. There is mild thickening of bronchial vargas diffusely bilaterally. Heart is slightly enlarged. There is no pleural or pericardial effusion. There are mild atherosclerotic calcifications of the thoracic aorta without aneurysm. No gross adenopathy is seen in the mediastinum. There is no axillary adenopathy. In the visualized portions of the upper abdomen a calcified granuloma is seen in the left lobe of the liver. There are bilateral renal cysts. There are degenerative changes of the spine. IMPRESSION: New consolidative left upper lobe infiltrate compared to prior CT study of 08/20/2018. This infiltrate was seen on chest radiographs 11/30/18, and appears mildly increased. Mild hazy infiltrate left lower lobe. No acute infiltrate on the right. Electronically Signed by Marco Ayers MD 12/13/2018 11:36 A
--- NOTE | 2018-12-13 10:22 | REP ---
CHEST, TWO VIEWS: Two views of the chest are performed. Comparison 11/30/2018. Once again there is evidence of left upper lobe infiltrate. This has slightly increased. There are mild left lower lobe infiltrates. There are underlying chronic fibrotic changes. The heart is slightly enlarged. There is calcified tortuous aorta. The mediastinal silhouette is unchanged. There are degenerative changes of the spine. IMPRESSION: Mild increase in left upper lobe infiltrate. Mild left lower lobe infiltrate. Electronically Signed by Marco Ayers MD 12/13/2018 11:33 A
[2018-12-13] MEDS ORDERED: IPRATROPIUM 0.5MG/ALBUTEROL 2.5MG INH SOL UD 3ML (DUONEB)(J7620) NEB ONE (10:45)
[2018-12-13] MEDS ORDERED: IPRATROPIUM 0.5MG/ALBUTEROL 2.5MG INH SOL UD 3ML (DUONEB)(J7620) NEB PRN (12:00)
--- NOTE | 2018-12-13 12:57 | HPEPDOC ---
General Date of Admission December 13, 2018 at 11:21 Chief Complaint The patient is a 78-year-old male admitted with a reason for visit of Atrial Fib rillation With Rvr Hernandez Pneumonia. Source: Family, RN/MD, Old records Exam Limitations: Dementia Associated Symptoms: Cough, Shortness of breath History of Present Illness 78 year old male with PMH of chronic systolic and diastolic congestive heart failure, ejection fraction of 25%, Atrial fibrillation, COPD , Dementia with 24 x 7 care at home, Depression, Hyperlipidemia, Coronary artery disease, Active tobacco smoker, CKD stage 3, Prostate cancer, status post prostatectomy, h/o bleeding duodenal ulcer in 2017 was brought to the ED for increased SOB, cough and inability to sleep. Patient was seen by pulmonology about 2 weeks ago for a routine visit when he did have some cough more than usual a cxr was done then and showed some infiltrates so was prescribed keflex . However patient's cough did not improve. FOr the past 7 days family noted him to be more tired than usual and run down though her did not complain. yesterday his cough really worsened and his SOb worsened, he could not lay down and he asked to be taken to the hospital as he was not feeling good. The caregivers noticed him to be whe ezing and coughing really bad since yesterday. Patient has dementia so is a poor historian. In the ED patient had a CXR and CT chest done which showed left upper lobe consolidation which was new. Patient was also noted to be in A fib with RVR. Patient was admitted for Pneumonia and Afib with RVR. Home Medications Scheduled Calcitriol (Rocaltrol) 0.25 Mcg Capsule, 0.25 MCG PO Q2D, (Reported) Donepezil HCl (Donepezil HCl) 23 Mg Tab, 23 MG PO DAILY, (Reported) Famotidine (Famotidine) 20 Mg Tab, 20 MG PO DAILY, (Reported) Ferrous Sulfate (Ferrous Sulfate) 325 Mg Tab, 325 MG PO BID, (Reported) TAKES WITH LUNCH/DINNER Furosemide (Furosemide) 20 Mg Tab, 40 MG PO DAILY, (Reported) Memantine HCl (Memantine HCl) 10 Mg Tab, 10 MG PO BID, (Reported) Metoprolol Succinate (Metoprolol Succinate) 25 Mg Tab, 25 MG PO QHS, (Reported) Pantoprazole Sodium (Pantoprazole Sodium) 40 Mg Tablet.dr, 40 MG PO QPM, (Reported) Potassium Chloride (Potassium Chloride) 20 Meq Tab, 20 MEQ PO BID, (Reported) Prednisone (Prednisone) 10 Mg Tablet, 10 MG PO DAILY, (Reported) Rivaroxaban (Xarelto) 15 Mg Tablet, 15 MG PO QPM, (Reported) Sacubitril/Valsartan (Entresto 24 mg-26 mg Tablet) 1 Each Tablet, 1 TAB PO BID, (Reported) Sertraline HCl (Sertraline HCl) 25 Mg Tab, 25 MG PO QHS, (Reported) Simvastatin (Zocor) 40 Mg Tab, 40 MG PO QHS, (Reported) Trazodone HCl (Trazodone HCl) 50 Mg Tablet, 50 MG PO QHS, (Reported) Umeclidinium Brm/Vilanterol Tr (Anoro Ellipta 62.5-25 Mcg INH) [address]dev, 1 PUFF PO QPM, (Reported) Scheduled PRN Diphenhydra/Phenyleph/Acetamin (Delsym Cough-Cold Nighttime Lq) 180 Ml Liquid, 1 DOSE PO Q12H PRN for COUGH, (Reported) Ipratropium/Albuterol Sulfate (Iprat-Albut 0.5-3(2.5) mg/3 ml) 1 Patricia Patricia, 1 VIAL INH Q6H PRN for SHORTNESS OF BREATH, (Reported) Allergies Coded Allergies: No Known Allergies (Unverified , 01/26/18) Past Medical History Medical History Chronic systolic and diastolic congestive heart failure, ejection fraction of 25%, Atrial fibrillation, COPD , Dementia with 24 x 7 care at home, Depression, Hyperlipidemia, Coronary artery disease s/p stents, CKD stage 3, Prostate c ancer, status post prostatectomy, h/o bleeding duodenal ulcer in 2017 Surgical History prostetectomy Cardiac stents x 2, angioplasty 22 yrs ago A-FIB/CHADSVASC A-FIB History Current/History of A-Fib/PAF?: Yes Current Oral Anticoagulant The: Yes Review of Systems Constitutional: Denies: Chills, Fever, Night Sweats Eyes: Denies: Pain, Vision change Skin: Denies: Rash, Lesions, Breakdown Pulmonary: Reports: Dyspnea, Cough, Other Symptoms (wheezing) Cardiovascular: Reports: Edema; Denies: Chest Pain, Palpitations, Lt Headedness, Other Symptoms Gastrointestinal: Denies: Nausea, Vomiting, Abdominal Pain, Diarrhea Genitourinary: Reports: Frequency Psych: Reports: Memory Issues Physical Examination General Exam: Positive: Alert, Cooperative, No Acute Distress Eye Exam: Positive: Conjunctiva & lids normal ENT Exam: Positive: Atraumatic, Mucous membr. moist/pink, Tongue Midline Neck Exam: Positive: Supple Chest Exam: Positive: Rales, Rhonchi, Wheezing Heart Exam: Positive: Tachycardic, Irregular Rhythm, Normal S1, Normal S2; Negative: Gallops, Murmurs, Rubs Telemetry: Positive: Atrial fibrillation Abdomen Exam: Positive: Normal bowel sounds, Soft; Negative: Tenderness, Hepatospenomegaly Extremity Exam: Positive: Edema; Negative: Clubbing, Cyanosis Skin Exam: Positive: Nl turgor and temperature; Negative: Breakdown, Lesion Neuro Exam: Positive: Strength at 5/5 X4 ext, Normal Tone Vital Signs Vital Signs Date Time Temp Pulse Resp B/P (MAP) Pulse Ox O2 Delivery O2 Flow Rate FiO2 12/13/18 11:57 97.8 105 22 106/57 (73) 96 12/13/18 08:42 Room Air 12/13/18 07:25 2.0 Laboratory Data Labs 24H Laboratory Tests 2 12/13/18 07:32: Immature Granulocyte % (Auto) 0.7, White Blood Count 13.9H, Red Blood Count 5.08, Hemoglobin 15.1, Hematocrit 47.4, Mean Corpuscular Volume 93.3, Mean Corpuscular Hemoglobin 29.7, Mean Corpuscular Hemoglobin Concent 31.9L, Red Cell Distribution Width 17.0H, Platelet Count 190, Neutrophils (%) (Auto) 80.3H, Lymphocytes (%) (Auto) 12.0L, Monocytes (%) (Auto) 5.6H, Eosinophils (%) (Auto) 1.0, Basophils (%) (Auto) 0.4, Neutrophils # (Auto) 11.1H, Lymphocytes # (Auto) 1.7, Monocytes # (Auto) 0.8, Eosinophils # (Auto) 0.1, Basophils # (Auto) 0.1, Nucleated Red Blood Cells % (auto) 0.0, Anion Gap 7L, Glomerular Filtration Rate > 60.0, Blood Urea Nitrogen 24H, Creatinine 1.24, Sodium Level 141, Potassium Level 4.3, Chloride Level 102, Carbon Dioxide Level 32, Calcium Level 9.2, Total Creatine Kinase 142, Creatine Kinase MB 6.0H, Creatine Kinase MB Relative Index 4.58H, Troponin I 0.07, UZ-Hnr-M-Type Natriuretic Peptide 6891H 12/13/18 07:58: Blood Gas Bicarbonate Standard 29.5H, Arterial Blood pH 7.495H, Arterial Blood Partial Pressure CO2 38.5, Arterial Blood Partial Pressure O2 145.2H, Arterial Blood Total CO2 30.2, Arterial Blood HCO3 29.0H, Arterial Blood Base Excess 5.5H, Arterial Blood Oxygen Saturation 99.2H 12/13/18 08:22: Lactic Acid Level 1.7 CBC/BMP Laboratory Tests 12/13/18 07:32 Red Blood Count 5.08, Mean Corpuscular Volume 93.3, Mean Corpuscular Hemoglobin 29.7, Mean Corpuscular Hemoglobin Concent 31.9 L, Red Cell Distribution Width 17.0 H, Neutrophils (%) (Auto) 80.3 H, Lymphocytes (%) (Auto) 12.0 L, Monocytes (%) (Auto) 5.6 H, Eosinophils (%) (Auto) 1.0, Basophils (%) (Auto) 0.4, Neutrophils # (Auto) 11.1 H, Lymphocytes # (Auto) 1.7, Monocytes # (Auto) 0.8, Eosinophils # (Auto) 0.1, Basophils # (Auto) 0.1, Calcium Level 9.2, Total Creatine Kinase 142 Microbiology Microbiology 12/13/18 Blood Culture, Received Pending 12/13/18 Blood Culture, Received Pending Assessment/Plan 78 year old male with PMH of chronic systolic and diastolic congestive heart failure, ejection fraction of 25%, Atrial fibrillation, COPD on chronic prednisone 10 mg, Dementia with 24 x 7 care at home, Depression, Hyperlipidemia, Coronary artery disease, Active tobacco smoker, CKD stage 3, Prostate cancer, status post prostatectomy, h/o bleeding duodenal ulcer in 2017 was brought to the ED for increased SOB, cough and inability to sleep. Patient was seen by pulmonology about 2 weeks ago for a routine visit when he did have some cough more than usual a cxr was done then and showed some infiltrates so was prescribed keflex . However patient's cough did not improve. FOr the past 7 days family noted him to be more tired than usual and run down though her did not complain. yesterday his cough really worsened and his SOb worsened, he could not lay down and he asked to be taken to the hospital as he was not feeling good. The caregivers noticed him to be wheezing and coughing really bad since yesterday. Patient has dementia so is a poor historian. In the ED patient had a CXR and CT chest done which showed left upper lobe consolidation which was new. Patient was also noted to be in A fib with RVR and copd exacerbation. Patient was admitted for Pneumonia and Afib with RVR. Pneumonia Last sputum culture in September grew Stenotrophomonas maltophilia will give levofloxacin. Afib with RVR will continue with metoprolol and xarelto COPD with exacerbation due to Pneumonia will give albuterol, spiriva, symbicort continue prednisone Acute on chronic systolic and diastolic CHF probably worsened by infection, afib with rvr and prednisone will give lasix IV. Dementia continue home meds H/O Peptic ulcer disease continue famotidine and pantoprazole CAD s/p stents continue statin, betablocker, xarelto Hyperlipidemia continue statin Depression on sertaline and trazodone. Plan / VTE VTE Prophylaxis Ordered?: Yes DEMETRA DE GUZMAN MD December 13, 2018 12:57
[2018-12-13] MEDS ORDERED: SLF 3 ML SYR IV PRN (13:00)
[2018-12-13] MEDS: ALBUTEROL SULFATE 2.5 MG/0.5 ML INH NEB SOLN NEB SCH (13:50)
[2018-12-13] MEDS: SLF 3 ML SYR IV SCH ×2 (14:00→21:18)
[2018-12-13 16:00] VITALS: BP 137/76
[2018-12-13] MEDS ORDERED: FUROSEMIDE 40 MG/4 ML VIAL (J1940) IV SCH (17:00)
[2018-12-13] MEDS: RIVAROXABAN 15 MG TAB (XARELTO) PO SCH (17:18)
[2018-12-13 20:00] VITALS: BP 114/74
[2018-12-13] MEDS: ENTRESTO 24-26MG TABLET (SACUBITRIL/VALSARTAN) PO SCH (21:15)
[2018-12-13] MEDS: MEMANTINE 5MG TABLET (NAMENDA) PO SCH (21:16)
[2018-12-13] MEDS: PANTOPRAZOLE 40MG TAB (PROTONIX) PO SCH (21:16)
[2018-12-13] MEDS: traZODone 50 MG TAB PO SCH (21:16)
[2018-12-13] MEDS: SIMVASTATIN 40 MG TAB PO SCH (21:16)
[2018-12-13] MEDS: SERTRALINE HCL 25 MG TABLET PO SCH (21:16)
[2018-12-13] MEDS: METOPROLOL SUCC *XL* 25MG TAB (TopROL *XL*) PO SCH (21:16)
--- NOTE | 2018-12-13 21:16 | ECGEPIP ---
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
[2018-12-14 04:00] VITALS: BP 121/78
[2018-12-14 05:08] LABS: BASO % 0.1 % (0.0-1.0); HEMATOCRIT 42.6 % (42.0-52.0); HEMOGLOBIN 13.7 g/dl (13.5-17.5); LYMPH # 0.7 10^3/uL (1.5-4.5); LYMPH % 5.5 % (24.0-44.0); MEAN CORPUSCULAR HEMOGLOBIN 28.9 pg (27.0-33.0); MEAN CORPUSCULAR HGB CONC 32.2 g/dl (32.0-36.5); MEAN CORPUSCULAR VOLUME 89.9 fl (80.0-96.0); MONO # 0.4 10^3/uL (0.0-0.8); MONO % 2.7 % (0.0-5.0); NEUTROPHILS # 12.3 10^3/uL (1.8-7.7); PLATELET COUNT, AUTOMATED 183 10^3/uL (150-450); RED BLOOD COUNT 4.74 10^6/uL (4.30-6.10); WHITE BLOOD COUNT 13.6 10^3/uL (4.0-10.0)
[2018-12-14] MEDS: SLF 3 ML SYR IV SCH ×3 (05:09→21:48)
[2018-12-14 05:26] LABS: CALCIUM LEVEL 8.4 MG/DL (8.8-10.2); CREATININE FOR GFR 1.66 MG/DL (0.70-1.30); POTASSIUM SERUM 3.7 MEQ/L (3.5-5.1)
[2018-12-14] MEDS ORDERED: GLUCOSE 4 GM CHEW TABLET PO PRN (06:30)
[2018-12-14] MEDS ORDERED: GLUCAGON FOR INJ 1 MG VIAL (J1610) SC PRN (06:30)
[2018-12-14] MEDS ORDERED: NS 250 ML IV ONE (06:30)
[2018-12-14] MEDS ORDERED: DEXTROSE 50% 50 ML SYRINGE IV PRN (06:30)
[2018-12-14 07:07] VITALS: BP 133/86
[2018-12-14] MEDS: ALBUTEROL SULFATE 2.5 MG/0.5 ML INH NEB SOLN NEB SCH ×3 (08:00→20:00)
[2018-12-14] MEDS: predniSONE 10 MG TAB PO SCH (08:43)
[2018-12-14] MEDS: ENTRESTO 24-26MG TABLET (SACUBITRIL/VALSARTAN) PO SCH ×2 (08:43→21:35)
[2018-12-14] MEDS: FAMOTIDINE 20 MG TAB PO SCH (08:43)
[2018-12-14] MEDS: MEMANTINE 5MG TABLET (NAMENDA) PO SCH ×2 (08:43→21:35)
[2018-12-14] MEDS: HumaLOG INSULIN (NovoLOG) PER UNIT SC SCH ×3 (08:44→17:43)
[2018-12-14] MEDS: SYMBICORT 80/4.5MCG INHALER 6GM INH SCH ×2 (08:49→21:48)
[2018-12-14] MEDS: TIOTROPIUM INHALER/CAPSULE (SPIRIVA) INH SCH (08:49)
--- NOTE | 2018-12-14 08:49 | IPNPDOC ---
Subjective Date Seen The patient was seen on 12/14/18. Subjective Chief Complaint/HPI Cough and SOB, tiredness Events since last encounter Pateint seen at bedside sitting up in chair getting ready to eat breakfast says he is hungry, denies any SOB or cough. Cannot remember why he is in the hospital. No Fever or chills. No chest pain . Objective Physical Examination General Exam: Positive: Alert, Cooperative, No Acute Distress Eye Exam: Positive: Conjunctiva & lids normal ENT Exam: Positive: Atraumatic, Mucous membr. moist/pink, Tongue Midline Neck Exam: Positive: Supple Chest Exam: Positive: Rales, Rhonchi, Wheezing Heart Exam: Positive: Rate Normal, Irregular Rhythm, Normal S1, Normal S2; Negative: Gallops, Murmurs, Rubs Telemetry: Positive: Atrial fibrillation Abdomen Exam: Positive: Normal bowel sounds, Soft; Negative: Tenderness, Hepatospenomegaly Extremity Exam: Positive: Edema; Negative: Clubbing, Cyanosis Skin Exam: Positive: Nl turgor and temperature; Negative: Breakdown, Lesion Neuro Exam: Positive: Strength at 5/5 X4 ext, Normal Tone Assessment /Plan Assessment 78 year old male with PMH of chronic systolic and diastolic congestive heart failure, ejection fraction of 25%, Atrial fibrillation, COPD on chronic prednisone 10 mg, Dementia with 24 x 7 care at home, Depression, Hyperlipidemia, Coronary artery disease, Active tobacco smoker, CKD stage 3, Prostate cancer, status post prostatectomy, h/o bleeding duodenal ulcer in 2016 was brought to the ED for increased SOB, cough and inability to sleep. Patient was seen by pulmonology about 2 weeks ago for a routine visit when he did have some cough more than usual a cxr was done then and showed some infiltrates so was prescribed keflex . However patient's cough did not improve. FOr the past 7 days family noted him to be more tired than usual and run down though her did not complain. yesterday his cough really worsened and his SOb worsened, he could not lay down and he asked to be taken to the hospital as he was not feeling good. The caregivers noticed him to be wheezing and coughing really bad since yesterday. Patient has dementia so is a poor historian. In the ED patient had a CXR and CT chest done which showed left upper lobe consolidation which was new. Patient was also noted to be in A fib with RVR and copd exacerbation. Patient was admitted for Pneumonia and Afib with RVR. Pneumonia Last sputum culture in September grew Stenotrophomonas maltophilia levofloxacin. Afib with RVR will continue with metoprolol and xarelto rate now controlled. COPD with exacerbation due to Pneumonia will give albuterol, spiriva, symbicort continue prednisone Acute on chronic systolic and diastolic CHF probably worsened by infection, afib with rvr and prednisone Will hold lasix today, there has been a jumpin creatinine and over 2L negative . Dementia continue home meds CKD stage 3 creatinine is a little up today probably due to quick diuresis will give 250 cc ivf. and hold diuretics today. H/O Peptic ulcer disease continue famotidine and pantoprazole CAD s/p stents continue statin, betablocker, xarelto Hyperlipidemia continue statin Depression on sertaline and trazodone. Plan/VTE VTE Prophylaxis Ordered?: Yes VS, I&O, 24H, Fishbone Vital Signs/I&O Vital Signs Date Time Temp Pulse Resp B/P (MAP) Pulse Ox O2 Delivery O2 Flow Rate FiO2 12/14/18 07:47 2.0 12/14/18 07:07 97.3 86 20 133/86 (102) 97 12/13/18 08:42 Room Air I&O- Last 24 Hours up to 6 AM 12/14/18 06:00 Intake Total 930 ml Output Total 3175 ml Balance -2245 ml Laboratory Data 24H LABS Laboratory Tests 2 12/14/18 04:42: Immature Granulocyte % (Auto) 0.7, White Blood Count 13.6H, Red Blood Count 4.74, Hemoglobin 13.7, Hematocrit 42.6, Mean Corpuscular Volume 89.9, Mean Corpuscular Hemoglobin 28.9, Mean Corpuscular Hemoglobin Concent 32.2, Red Cell Distribution Width 16.5H, Platelet Count 183, Neutrophils (%) (Auto) 91.0H, Lymphocytes (%) (Auto) 5.5L, Monocytes (%) (Auto) 2.7, Eosinophils (%) (Auto) 0.0, Basophils (%) (Auto) 0.1, Neutrophils # (Auto) 12.3H, Lymphocytes # (Auto) 0.7L, Monocytes # (Auto) 0.4, Eosinophils # (Auto) 0.0, Basophils # (Auto) 0.0, Nucleated Red Blood Cells % (auto) 0.0, Anion Gap 8, Glomerular Filtration Rate 43.0, Blood Urea Nitrogen 30H, Creatinine 1.66H, Sodium Level 135L, Potassium L evel 3.7, Chloride Level 97L, Carbon Dioxide Level 30, Calcium Level 8.4L 12/14/18 07:30: Bedside Glucose (Misc Panel) 381H CBC/BMP Laboratory Tests 12/14/18 04:42 Red Blood Count 4.74, Mean Corpuscular Volume 89.9, Mean Corpuscular Hemoglobin 28.9, Mean Corpuscular Hemoglobin Concent 32.2, Red Cell Distribution Width 16.5 H, Neutrophils (%) (Auto) 91.0 H, Lymphocytes (%) (Auto) 5.5 L, Monocytes (%) (Auto) 2.7, Eosinophils (%) (Auto) 0.0, Basophils (%) (Auto) 0.1, Neutrophils # (Auto) 12.3 H, Lymphocytes # (Auto) 0.7 L, Monocytes # (Auto) 0.4, Eosinophils # (Auto) 0.0, Basophils # (Auto) 0.0, Calcium Level 8.4 L Microbiology Microbiology 12/13/18 Blood Culture, Received Pending 12/13/18 Blood Culture - Preliminary, Resulted No growth after 24 hours . All specim... DEMETRA DE GUZMAN MD December 14, 2018 08:48
[2018-12-14] MEDS ORDERED: DONEPEZIL 5 MG TAB PO SCH (09:00)
[2018-12-14] MEDS: NICOTINE 14 MG/24 HR TRANSDERMAL TD SCH ×2 (09:00→18:53)
[2018-12-14] MEDS ORDERED: FUROSEMIDE 40 MG/4 ML VIAL (J1940) IV SCH (09:00)
[2018-12-14] MEDS: LevoFLOXacin IV 750 MG in APPROPRIATE DILUENT 1 EA IV SCH (09:35)
[2018-12-14 12:00] VITALS: BP 108/63
[2018-12-14] MEDS ORDERED: LEVEMIR (INSULIN DETEMIR) 1 UNITS/0.01ML SC ONE (12:15)
[2018-12-14] MEDS: DONEPEZIL 5 MG TAB PO SCH (13:17)
[2018-12-14 16:00] VITALS: BP 135/79
[2018-12-14] MEDS: RIVAROXABAN 15 MG TAB (XARELTO) PO SCH (17:43)
[2018-12-14 20:00] VITALS: BP 114/80
[2018-12-14] MEDS: traZODone 50 MG TAB PO SCH (21:35)
[2018-12-14] MEDS: SIMVASTATIN 40 MG TAB PO SCH (21:35)
[2018-12-14] MEDS: SERTRALINE HCL 25 MG TABLET PO SCH (21:35)
[2018-12-14] MEDS: PANTOPRAZOLE 40MG TAB (PROTONIX) PO SCH (21:48)
[2018-12-14] MEDS: METOPROLOL SUCC *XL* 25MG TAB (TopROL *XL*) PO SCH (21:48)
[2018-12-15] MEDS: ALBUTEROL SULFATE 2.5 MG/0.5 ML INH NEB SOLN NEB SCH ×4 (03:07→20:00)
[2018-12-15 05:03] LABS: BASO % 0.1 % (0.0-1.0); BLOOD UREA NITROGEN 36 MG/DL (7-18); CALCIUM LEVEL 8.6 MG/DL (8.8-10.2); CARBON DIOXIDE LEVEL 32 MEQ/L (21-32); CHLORIDE LEVEL 101 MEQ/L (98-107); CREATININE FOR GFR 1.21 MG/DL (0.70-1.30); GLOMERULAR FILTRATION RATE > 60.0 (>42); GLUCOSE, FASTING 191 MG/DL (70-100); HEMATOCRIT 42.5 % (42.0-52.0); HEMOGLOBIN 13.5 g/dl (13.5-17.5); LYMPH # 1.1 10^3/uL (1.5-4.5); LYMPH % 5.4 % (24.0-44.0); MEAN CORPUSCULAR HEMOGLOBIN 28.6 pg (27.0-33.0); MEAN CORPUSCULAR HGB CONC 31.8 g/dl (32.0-36.5); MONO # 0.7 10^3/uL (0.0-0.8); MONO % 3.4 % (0.0-5.0); NEUTROPHILS # 17.9 10^3/uL (1.8-7.7); NEUTROPHILS % 90.4 % (36.0-66.0); PLATELET COUNT, AUTOMATED 201 10^3/uL (150-450); POTASSIUM SERUM 3.6 MEQ/L (3.5-5.1); RED BLOOD COUNT 4.72 10^6/uL (4.30-6.10); SODIUM LEVEL 139 MEQ/L (136-145); WHITE BLOOD COUNT 19.7 10^3/uL (4.0-10.0)
[2018-12-15] MEDS: SLF 3 ML SYR IV SCH ×3 (05:18→20:33)
[2018-12-15 05:55] VITALS: BP 116/70
[2018-12-15] MEDS: LEVEMIR (INSULIN DETEMIR) 1 UNITS/0.01ML SC SCH (07:53)
[2018-12-15] MEDS: HumaLOG INSULIN (NovoLOG) PER UNIT SC SCH ×3 (07:53→17:29)
[2018-12-15] MEDS: DONEPEZIL 5 MG TAB PO SCH (07:54)
[2018-12-15] MEDS: FAMOTIDINE 20 MG TAB PO SCH (07:54)
[2018-12-15] MEDS: NICOTINE 14 MG/24 HR TRANSDERMAL TD SCH (07:54)
[2018-12-15] MEDS: MEMANTINE 5MG TABLET (NAMENDA) PO SCH ×2 (07:54→20:33)
[2018-12-15] MEDS: ENTRESTO 24-26MG TABLET (SACUBITRIL/VALSARTAN) PO SCH ×2 (07:54→20:31)
[2018-12-15] MEDS: predniSONE 10 MG TAB PO SCH (07:54)
[2018-12-15 08:00] VITALS: BP 118/83
--- NOTE | 2018-12-15 08:01 | IPNPDOC ---
Subjective Date Seen The patient was seen on 12/15/18. Subjective Chief Complaint/HPI Cough and SOB, tiredness Events since last encounter Patient was interviewed and examined in his hospital room. Patient was found to be laying comfortably in bed, in hospital clothing, watching television in NAD. Patient's family was at bedside and current management plan was reviewed and their questions answered. Patient continues to remain disoriented. He denies discomfort of any kind, including difficulty breathing, SOB, chest pain, palpitations. He has been eating and drinking. Patient reports urinating frequently and without difficulty. Objective Physical Examination General Exam: Positive: Alert, Cooperative, No Acute Distress Eye Exam: Positive: Conjunctiva & lids normal ENT Exam: Positive: Atraumatic, Mucous membr. moist/pink, Tongue Midline Neck Exam: Positive: Supple Chest Exam: Positive: Rales, Rhonchi, Wheezing Heart Exam: Positive: Rate Normal, Irregular Rhythm, Normal S1, Normal S2 Telemetry: Positive: Atrial fibrillation Abdomen Exam: Positive: Normal bowel sounds, Soft Extremity Exam: Positive: Edema Skin Exam: Positive: Nl turgor and temperature Neuro Exam: Positive: Strength at 5/5 X4 ext, Normal Tone A-FIB/CHADSVASC A-FIB History Current/History of A-Fib/PAF?: Yes Current Oral Anticoagulant The: Yes Assessment /Plan Assessment 78 year old male with PMH of chronic systolic and diastolic congestive heart failure, ejection fraction of 25%, Atrial fibrillation, COPD on chronic prednisone 10 mg, Dementia with 24 x 7 care at home, Depression, Hyperlipidemia, Coronary artery disease, Active tobacco smoker, CKD stage 3, Prostate cancer, status post prostatectomy, h/o bleeding duodenal ulcer in 2017 was brought to [facility] ED for increased SOB, cough and inability to sleep. Patient was seen by pulmonology about 2 weeks ago for a routine visit when he did have some cough more than usual a cxr was done then and showed some infiltrates so was prescribed keflex . However patient's cough did not improve. FOr the past 7 days family noted him to be more tired than usual and run down though her did not complain. yesterday his cough really worsened and his SOb worsened, he could not lay down and he asked to be taken to the hospital as he was not feeling good. The caregivers noticed him to be wheezing and coughing really bad since yesterday. Patient has dementia so is a poor historian. In the ED patient had a CXR and CT chest done which showed left upper lobe consolidation which was new. Patient was also noted to be in A fib with RVR and copd exacerbation. Patient was admitted for Pneumonia and Afib with RVR. Possible gram-negative Pneumonia -Last sputum culture in September grew Stenotrophomonas maltophilia with sensitivities to levofloxacin -Patient started and continuing on levofloxacin. Afib with RVR -Continue home metoprolol and xarelto -Rate now controlled, 100 this morning via tele COPD with exacerbation due to Pneumonia -Will give albuterol, spiriva, symbicort -Continue prednisone Acute on chronic systolic and diastolic CHF -Probably worsened by infection, afib with rvr and prednisone -Will hold lasix today, there has been an increase in creatinine and over -2L fluid balance. Dementia -Baseline mentation -Continue home medications CKD Stage III -Creatinine is a little up today probably due to quick diuresis -Diuretic held yesterday, improvement in Cr to 1.21 -Restart diuretics H/O Peptic ulcer disease -Continue famotidine and pantoprazole CAD s/p stents -Continue statin, beta-kamilla, xarelto Hyperlipidemia -Continue home statin Depression -Continue sertraline and trazodone. Plan/VTE VTE Prophylaxis Ordered?: Yes VS, I&O, 24H, Fishbone Vital Signs/I&O Vital Signs Date Time Temp Pulse Resp B/P (MAP) Pulse Ox O2 Delivery O2 Flow Rate FiO2 12/15/18 05:55 98.0 94 20 116/70 (85) 92 12/14/18 07:47 2.0 12/13/18 08:42 Room Air I&O- Last 24 Hours up to 6 AM 12/15/18 06:00 Intake Total 1480 ml Output Total 925 ml Balance 555 ml Laboratory Data 24H LABS Laboratory Tests 2 12/14/18 11:56: Bedside Glucose (Misc Panel) 423H 12/14/18 14:46: Bedside Glucose (Misc Panel) 303H 12/14/18 16:59: Bedside Glucose (Misc Panel) 240H 12/14/18 21:51: Bedside Glucose (Misc Panel) 154H 12/15/18 04:12: Immature Granulocyte % (Auto) 0.7, White Blood Count 19.7H, Red Blood Count 4.72, Hemoglobin 13.5, Hematocrit 42.5, Mean Corpuscular Volume 90.0, Mean Corpuscular Hemoglobin 28.6, Mean Corpuscular Hemoglobin Concent 31.8L, Red Cell Distribution Width 16.5H, Platelet Count 201, Neutrophils (%) (Auto) 90.4H, Lymphocytes (%) (Auto) 5.4L, Monocytes (%) (Auto) 3.4, Eosinophils (%) (Auto) 0.0, Basophils (%) (Auto) 0.1, Neutrophils # (Auto) 17.9H, Lymphocytes # (Auto) 1.1L, Monocytes # (Auto) 0.7, Eosinophils # (Auto) 0.0, Basophils # (Auto) 0.0, Nucleated Red Blood Cells % (auto) 0.0, Anion Gap 6L, Glomerular Filtration Rate > 60.0, Blood Urea Nitrogen 36H, Creatinine 1.21, Sodium Level 139, Potassium Level 3.6, Chloride Level 101, Carbon Dioxide Level 32, Calcium Level 8.6L CBC/BMP Laboratory Tests 12/15/18 04:12 Red Blood Count 4.72, Mean Corpuscular Volume 90.0, Mean Corpuscular Hemoglobin 28.6, Mean Corpuscular Hemoglobin Concent 31.8 L, Red Cell Distribution Width 16.5 H, Neutrophils (%) (Auto) 90.4 H, Lymphocytes (%) (Auto) 5.4 L, Monocytes (%) (Auto) 3.4, Eosinophils (%) (Auto) 0.0, Basophils (%) (Auto) 0.1, Neutrophils # (Auto) 17.9 H, Lymphocytes # (Auto) 1.1 L, Monocytes # (Auto) 0.7, Eosinophils # (Auto) 0.0, Basophils # (Auto) 0.0, Calcium Level 8.6 L Microbiology Microbiology 12/13/18 Blood Culture - Preliminary, Resulted No growth after 24 hours . All specim... 12/13/18 Blood Culture - Preliminary, Resulted No Growth after 48 hours. All Specime... GME ATTESTATION GME ATTESTATION My faculty preceptor for this patient encounter was physically present during t he encounter and was fully available. All aspects of the patient interview, examination, medical decision making process, and medical care plan development were reviewed and approved by the faculty preceptor. The faculty preceptor is aware and concurs with the plan as stated in the body of this note and will attest to such by his/her cosignature. ATTENDING NOTE I saw and Evaluated the patient. I agreeable with the finding and the plan of care as documented in the resident's note. Patient comfortable lying in bed, pleasantly demented. Patient's sugars have been uncontrolled will start him on insulin His WBC has been noted to be going up unsure the cause. His procalcitonin is not elevated so unlikely this is not infectious in origin. Could be stress demargination and steroids as he was agitated yesterday His creatinine is back to baseline so will resume daily lasix. LAUREN AVALOS DO December 15, 2018 08:01 DEMETRA DE GUZMAN MD December 15, 2018 10:55
[2018-12-15] MEDS: TIOTROPIUM INHALER/CAPSULE (SPIRIVA) INH SCH (08:48)
[2018-12-15] MEDS: SYMBICORT 80/4.5MCG INHALER 6GM INH SCH ×2 (08:48→20:40)
[2018-12-15] MEDS: FUROSEMIDE 40 MG/4 ML VIAL (J1940) IV SCH (10:00)
[2018-12-15] MEDS: LevoFLOXacin IV 750 MG in APPROPRIATE DILUENT 1 EA IV SCH (10:00)
[2018-12-15 12:00] VITALS: BP 137/85
[2018-12-15 16:00] VITALS: BP 140/85
[2018-12-15] MEDS: RIVAROXABAN 15 MG TAB (XARELTO) PO SCH (17:29)
[2018-12-15 20:00] VITALS: BP_SYST 142; BP_SYST 157; BP_DIAS 88
[2018-12-15] MEDS: traZODone 50 MG TAB PO SCH (20:31)
[2018-12-15] MEDS: SERTRALINE HCL 25 MG TABLET PO SCH (20:31)
[2018-12-15 20:32] VITALS: BP 142/75
[2018-12-15] MEDS: METOPROLOL SUCC *XL* 25MG TAB (TopROL *XL*) PO SCH (20:32)
[2018-12-15] MEDS: SIMVASTATIN 40 MG TAB PO SCH (20:33)
[2018-12-15] MEDS: PANTOPRAZOLE 40MG TAB (PROTONIX) PO SCH (20:33)
[2018-12-16] VITALS: BP 130/76
[2018-12-16] MEDS: ALBUTEROL SULFATE 2.5 MG/0.5 ML INH NEB SOLN NEB SCH ×2 (02:00→07:57)
[2018-12-16 04:00] VITALS: BP 147/72
[2018-12-16] MEDS: SLF 3 ML SYR IV SCH ×2 (05:24→14:00)
[2018-12-16 06:13] LABS: BASO % 0.2 % (0.0-1.0); EOS % 0.2 % (0.0-3.0); HEMATOCRIT 47.1 % (42.0-52.0); LYMPH # 1.9 10^3/uL (1.5-4.5); LYMPH % 13.2 % (24.0-44.0); MEAN CORPUSCULAR HEMOGLOBIN 29.6 pg (27.0-33.0); MEAN CORPUSCULAR HGB CONC 31.8 g/dl (32.0-36.5); MEAN CORPUSCULAR VOLUME 92.9 fl (80.0-96.0); MONO # 0.7 10^3/uL (0.0-0.8); NEUTROPHILS # 11.6 10^3/uL (1.8-7.7); NEUTROPHILS % 80.4 % (36.0-66.0); PLATELET COUNT, AUTOMATED 213 10^3/uL (150-450); RED BLOOD COUNT 5.07 10^6/uL (4.30-6.10); WHITE BLOOD COUNT 14.4 10^3/uL (4.0-10.0)
[2018-12-16 06:36] LABS: CALCIUM LEVEL 8.5 MG/DL (8.8-10.2); CREATININE FOR GFR 1.28 MG/DL (0.70-1.30); POTASSIUM SERUM 3.3 MEQ/L (3.5-5.1)
[2018-12-16] MEDS ORDERED: LevoFLOXacin 750 MG TABLET PO SCH (07:00)
[2018-12-16] MEDS: HumaLOG INSULIN (NovoLOG) PER UNIT SC SCH ×2 (07:26→11:44)
[2018-12-16] MEDS: SYMBICORT 80/4.5MCG INHALER 6GM INH SCH (07:45)
[2018-12-16] MEDS: TIOTROPIUM INHALER/CAPSULE (SPIRIVA) INH SCH (07:45)
[2018-12-16 08:00] VITALS: BP 155/95
[2018-12-16] MEDS: LEVEMIR (INSULIN DETEMIR) 1 UNITS/0.01ML SC SCH (08:38)
[2018-12-16] MEDS: FUROSEMIDE 40 MG/4 ML VIAL (J1940) IV SCH (08:38)
[2018-12-16] MEDS: MEMANTINE 5MG TABLET (NAMENDA) PO SCH (08:39)
[2018-12-16] MEDS: FAMOTIDINE 20 MG TAB PO SCH (08:39)
[2018-12-16] MEDS: DONEPEZIL 5 MG TAB PO SCH (08:39)
[2018-12-16] MEDS: ENTRESTO 24-26MG TABLET (SACUBITRIL/VALSARTAN) PO SCH (08:39)
[2018-12-16] MEDS: predniSONE 10 MG TAB PO SCH (08:39)
[2018-12-16] MEDS: NICOTINE 14 MG/24 HR TRANSDERMAL TD SCH (08:40)
[2018-12-16] MEDS ORDERED: LEVA750T7 PO (11:38)
--- NOTE | 2018-12-16 11:58 | DS.PDOC ---
Discharge Summary General Date of Admission December 13, 2018 at 11:21 Date of Discharge December 16, 2018 Discharge Summary ADMITTING DIAGNOSES: 1. Pneumonia 2. A. fib with RVR 3. COPD with exacerbation 2/2 pneumonia 4. Acute on chronic systolic and diastolic CHF 5. Dementia 6. History of peptic ulcer disease 7. CAD s/p stents 8. Hyperlipidemia 9. Depression DISCHARGE DIAGNOSES: 1. Left upper lobe Pneumonia 2 A. fib with RVR 3 COPD with exacerbation 2/2 pneumonia 4. Acute on chronic systolic and diastolic CHF 5. Dementia 6. History of peptic ulcer disease 7. CAD s/p stents 8. Hyperlipidemia 9. Depression COMPLICATIONS/CHIEF COMPLAINT: History fibrillation with rapid ventricular rate Left upper lobe pneumonia HISTORY OF PRESENT ILLNESS: 78 year old male with PMH of chronic systolic and diastolic congestive heart fa ilure, ejection fraction of 25%, Atrial fibrillation, COPD , Dementia with 24 x 7 care at home, Depression, Hyperlipidemia, Coronary artery disease, Active tobacco smoker, CKD stage 3, Prostate cancer, status post prostatectomy, h/o bleeding duodenal ulcer in 2016 was brought to the ED for increased SOB, cough and inability to sleep. Patient was seen by pulmonology about 2 weeks ago for a routine visit when he did have some cough more than usual a cxr was done then and showed some infiltrates so was prescribed keflex . However patient's cough did not improve. FOr the past 7 days family noted him to be more tired than usual and run down though her did not complain. yesterday his cough really worsened and his SOb worsened, he could not lay down and he asked to be taken to the hospital as he was not feeling good. The caregivers noticed him to be wheezing and coughing really bad since yesterday. Patient has dementia so is a poor historian. In the ED patient had a CXR and CT chest done which showed left upper lobe consolidation which was new. Patient was also noted to be in A fib with RVR. Patient was admitted for Pneumonia and Afib with RVR. HOSPITAL COURSE: Patient was admitted to the floor for further management. His presumed pneumonia was treated with levofloxacin. This decision was made given prior sputum cultures obtained in September that grew stenotrophomonas maltophilia. Patient's heart failure was treated with IV Lasix with a -2 L fluid balance. On 12/14/18 patient was found to have an elevated creatinine likely due to rapid diuresis the day prior. He was given a small 250 mL bolus of IV fluids was given and his diuretics were held. Patient's creatinine improved and his diuretic was restarted on 12/15/18. On 02/26 patient was found to have a white count of 19.7. His IV Levaquin was transitioned to by mouth. White count is measured on the morning of 12/16/18 continue to trend downward at 14.4. Currently, patient demonstrated marked improvement in both his fluid balance and his breathing. Discharge antibiotic was reviewed with pulmonary who is in agreement with continued Levaquin. Patient will be discharged with close follow-up by pulmonary on an outpatient basis. Discharge plan was discussed with both the patient and his family who were in agreement. DISCHARGE MEDICATIONS: Please see below. ALLERGIES: Please see below. PHYSICAL EXAMINATION ON DISCHARGE: VITAL SIGNS: Please see below. GENERAL: Patient is alert and oriented, found to be laying comfortably in bed, in no acute distress. HEENT: Normocephalic, atraumatic, EOMI, PERRLA, mucous membranes moist, tongue is midline NECK: No JVD, supple CARDIOVASCULAR EXAMINATION: Irregular rate and rhythm, normal S1 and S2, free of murmurs gallops or rubs. RESPIRATORY EXAMINATION: bibasilar wheezing, good air movement ABDOMINAL EXAMINATION: Soft, nontender, nondistended, no masses palpated, bowel sounds present throughout EXTREMITIES: Patient is able to move his extremities equally and bilaterally. Trace lower extremity edema worse on the left compared to the right. Improved since yesterday's examination SKIN: No rashes or new/evolving skin lesions NEUROLOGICAL EXAMINATION: Baseline level of dementia as reported by family, no new facial weakness is, aphasia, focal neurologic deficits LABORATORY DATA: Please see below. IMAGING: Chest x-ray (12/13/18): Mild increase in upper left lobe infiltrate. Mild left lower lobe infiltrate Chest CT (12/13/18): New consolidative left upper lobe infiltrate compared to CT study on 08/20/18. This infiltrate was seen on chest radiographs taken on 11/30/18, and appeared to be mildly increased. Mild hazy infiltrate left lower lobe no acute infiltrate on the right. ACTIVITY: As tolerated DIET: As tolerated DISCHARGE PLAN AND INSTRUCTIONS: Please keep follow-up appointment with Dr. Jenkins (pulmonology) in 5-7 days Please follow-up with PCP in 1 week Should your symptoms worsen or fail to improve, please return to the ED for further evaluation. DISPOSITION: Discharge home with self-care DISCHARGE CONDITION: Stable TIME SPENT ON DISCHARGE: Greater than 25 minutes. Vital Signs/I&Os Vital Signs Date Time Temp Pulse Resp B/P (MAP) Pulse Ox O2 Delivery O2 Flow Rate FiO2 12/16/18 08:00 97.8 91 18 155/95 (115) 99 12/14/18 07:47 2.0 12/13/18 08:42 Room Air I&O- Last 24 Hours up to 6 AM 12/16/18 06:00 Intake Total 1100 ml Output Total 1200 ml Balance -100 ml Laboratory Data Labs 24H Laboratory Tests 2 12/15/18 17:01: Bedside Glucose (Misc Panel) 352H 12/16/18 05:51: Immature Granulocyte % (Auto) 1.0, White Blood Count 14.4H, Red Blood Count 5.07, Hemoglobin 15.0, Hematocrit 47.1, Mean Corpuscular Volume 92.9, Mean Corpuscular Hemoglobin 29.6, Mean Corpuscular Hemoglobin Concent 31.8L, Red Cell Distribution Width 16.8H, Platelet Count 213, Neutrophils (%) (Auto) 80.4H, Lymphocytes (%) (Auto) 13.2L, Monocytes (%) (Auto) 5.0, Eosinophils (%) (Auto) 0.2, Basophils (%) (Auto) 0.2, Neutrophils # (Auto) 11.6H, Lymphocytes # (Auto) 1.9, Monocytes # (Auto) 0.7, Eosinophils # (Auto) 0.0, Basophils # (Auto) 0.0, Nucleated Red Blood Cells % (auto) 0.0, Anion Gap 8, Glomerular Filtration Rate 58.0, Blood Urea Nitrogen 30H, Creatinine 1.28, Sodium Level 138, Potassium Level 3.3L, Chloride Level 102, Carbon Dioxide Level 28, Calcium Level 8.5L CBC/BMP Laboratory Tests 12/16/18 05:51 Red Blood Count 5.07, Mean Corpuscular Volume 92.9, Mean Corpuscular Hemoglobin 29.6, Mean Corpuscular Hemoglobin Concent 31.8 L, Red Cell Distribution Width 16.8 H, Neutrophils (%) (Auto) 80.4 H, Lymphocytes (%) (Auto) 13.2 L, Monocytes (%) (Auto) 5.0, Eosinophils (%) (Auto) 0.2, Basophils (%) (Auto) 0.2, Neutrophils # (Auto) 11.6 H, Lymphocytes # (Auto) 1.9, Monocytes # (Auto) 0.7, Eosinophils # (Auto) 0.0, Basophils # (Auto) 0.0, Calcium Level 8.5 L FSBS Laboratory Tests Test 12/15/18 17:01 Range/Units Bedside Glucose (Misc Panel) 352 83-110 MG/DL Microbiology Microbiology 12/13/18 Blood Culture - Preliminary, Resulted No Growth after 72 hours. All specime... 12/13/18 Blood Culture - Preliminary, Resulted No Growth after 72 hours. All specime... Discharge Medications Scheduled Calcitriol (Rocaltrol) 0.25 Mcg Capsule, 0.25 MCG PO Q2D, (Reported) Donepezil HCl (Donepezil HCl) 23 Mg Tab, 23 MG PO DAILY, (Reported) Famotidine (Famotidine) 20 Mg Tab, 20 MG PO DAILY, (Reported) Ferrous Sulfate (Ferrous Sulfate) 325 Mg Tab, 325 MG PO BID, (Reported) TAKES WITH LUNCH/DINNER Furosemide (Furosemide) 20 Mg Tab, 40 MG PO DAILY, (Reported) Levofloxacin (Levaquin) 750 Mg Tablet, 750 MG PO DAILY@06 Memantine HCl (Memantine HCl) 10 Mg Tab, 10 MG PO BID, (Reported) Metoprolol Succinate (Metoprolol Succinate) 25 Mg Tab, 25 MG PO QHS, (Reported) Pantoprazole Sodium (Pantoprazole Sodium) 40 Mg Tablet.dr, 40 MG PO QPM, (Reported) Potassium Chloride (Potassium Chloride) 20 Meq Tab, 20 MEQ PO BID, (Reported) Prednisone (Prednisone) 10 Mg Tablet, 10 MG PO DAILY, (Reported) Rivaroxaban (Xarelto) 15 Mg Tablet, 15 MG PO QPM, (Reported) Sacubitril/Valsartan (Entresto 24 mg-26 mg Tablet) 1 Each Tablet, 1 TAB PO BID, (Reported) Sertraline HCl (Sertraline HCl) 25 Mg Tab, 25 MG PO QHS, (Reported) Simvastatin (Zocor) 40 Mg Tab, 40 MG PO QHS, (Reported) Trazodone HCl (Trazodone HCl) 50 Mg Tablet, 50 MG PO QHS, (Reported) Umeclidinium Brm/Vilanterol Tr (Anoro Ellipta 62.5-25 Mcg INH) 1 Each Blst.w.dev, 1 PUFF PO QPM, (Reported) Scheduled PRN Diphenhydra/Phenyleph/Acetamin (Delsym Cough-Cold Nighttime Lq) 180 Ml Liquid, 1 DOSE PO Q12H PRN for COUGH, (Reported) Ipratropium/Albuterol Sulfate (Iprat-Albut 0.5-3(2.5) mg/3 ml) 1 Patricia Patricia, 1 VIAL INH Q6H PRN for SHORTNESS OF BREATH, (Reported) Allergies Coded Allergies: No Known Allergies (Unverified , 01/26/18) GME ATTESTATION GME ATTESTATION My faculty preceptor for this patient encounter was physically present during the encounter and was fully available. All aspects of the patient interview, examination, medical decision making process, and medical care plan development were reviewed and approved by the faculty preceptor. The faculty preceptor is aware and concurs with the plan as stated in the body of this note and will attest to such by his/her cosignature. ATTENDING NOTE I saw and evaluated the patient. I agree with the finding and the plan of care as documented in the resident's note. I agree with the resident's discharge summary. I spent more than 30 mins in counselling and coordinating the patient's discharge. LAUREN AVALOS DO December 16, 2018 11:58 DEMETRA DE GUZMAN MD December 17, 2018 13:32
[2018-12-16 12:00] VITALS: BP 113/62
== END 2018-12-16 15:04 | disposition home or self-care (01) | DRG 177 ==
LOC: M ED 06:06 → M ED INP 11:21 → M PCU 12:13
PROVIDERS: ADMIT Internal Medicine Nephrology; ATTEND Internal Medicine Nephrology
DX: J15.6 Pneumonia due to other Gram-negative bacteria (principal); I50.43 Acute on chronic combined systolic (congestive) and diastolic (congestive) heart failure; J44.0 Chronic obstructive pulmonary disease with (acute) lower respiratory infection; J44.1 Chronic obstructive pulmonary disease with (acute) exacerbation; I48.91 Unspecified atrial fibrillation; F03.90 Unspecified dementia, unspecified severity, without behavioral disturbance, psychotic disturbance, mood disturbance, and anxiety; F32.9 Major depressive disorder, single episode, unspecified; E78.5 Hyperlipidemia, unspecified; F17.200 Nicotine dependence, unspecified, uncomplicated; Z66 Do not resuscitate; K27.9 Peptic ulcer, site unspecified, unspecified as acute or chronic, without hemorrhage or perforation; I25.10 Atherosclerotic heart disease of native coronary artery without angina pectoris; N18.3 Chronic kidney disease, stage 3 (moderate); Z85.46 Personal history of malignant neoplasm of prostate; Z79.52 Long term (current) use of systemic steroids; Z79.01 Long term (current) use of anticoagulants; Z79.899 Other long term (current) drug therapy

== ENCOUNTER → 2019-01-13 | Outpatient (CLI) | payer MEDICARE, OTHER ==
[~2019-01-13] MED LIST changes: +ANOR1AER PO; +LEVA750T7 PO; +ROCA0.25 PO; -TRAZ-160 PO; +TRAZ-186 PO; +TRAZ-252 PO; +TRAZ1TAB11 PO; -TRAZ25TA PO; +[UNRECOGNIZED DRUG - CODE] PO
--- NOTE | 2019-01-13 10:58 | REP ---
REASON: Cough. COMPARISON: Multiple, the latest 12/13/2018. There is cardiomegaly status quo. The left upper lobe patchy opacities seen on the 11/30/2018 examination has significantly improved, however, a subtle residual persists. The findings were accentuated on the 12/13/2018 exam since it was AP rather than today's PA view. There is cardiomegaly. There are no new abnormal opacities. The pleural angles are sharp. There is thoracic aortic tortuosity status quo. There is no change in the osseous structures. IMPRESSION: Improvement as described above. Followup to complete resolution is recommended. Consider chest CT if relevant. Electronically Signed by Lenny Dallas DO 01/13/2019 01:51 P
[2019-01-13 14:02] LABS: HEMATOCRIT 48.4 % (42.0-52.0); HEMOGLOBIN 14.9 g/dl (13.5-17.5); MEAN CORPUSCULAR HEMOGLOBIN 30.1 pg (27.0-33.0); MEAN CORPUSCULAR HGB CONC 30.8 g/dl (32.0-36.5); MEAN CORPUSCULAR VOLUME 97.8 fl (80.0-96.0); PLATELET COUNT, AUTOMATED 169 10^3/uL (150-450); RED BLOOD COUNT 4.95 10^6/uL (4.30-6.10); WHITE BLOOD COUNT 12.7 10^3/uL (4.0-10.0)
[2019-01-13 14:38] LABS: ALBUMIN 3.5 GM/DL (3.2-5.2); BILIRUBIN,TOTAL 0.6 MG/DL (0.2-1.0); CALCIUM LEVEL 8.8 MG/DL (8.8-10.2); CREATININE FOR GFR 1.25 MG/DL (0.70-1.30); GLOMERULAR FILTRATION RATE 59.6 (>42); TOTAL PROTEIN 6.8 GM/DL (6.4-8.2)
[2019-01-13 15:17] LABS: HEMOGLOBIN A1c 10.5 %
== END ==
LOC: M WUC 09:04
PROVIDERS: ATTEND Family Medicine
DX: N18.3 Chronic kidney disease, stage 3 (moderate) (principal); J44.1 Chronic obstructive pulmonary disease with (acute) exacerbation; R73.9 Hyperglycemia, unspecified; I51.7 Cardiomegaly

== ENCOUNTER → 2019-05-18 | Outpatient (CLI) | payer MEDICARE, OTHER ==
--- NOTE | 2019-05-18 19:19 | REP ---
HISTORY: Pain after trauma. COMPARISON: None. There is AC joint DJD with asymmetric joint space narrowing and osteophytosis. The glenohumeral relationship is within normal limits. There is no evidence of an acute fracture, dislocation or subluxation. Only two views were obtained. This limits the exam. No scapular Y or axillary view was obtained. IMPRESSION: Chronic changes and limitations as described above. Electronically Signed by Lenny Dallas DO 05/18/2019 07:47 P
--- NOTE | 2019-05-18 19:29 | REP ---
TWO VIEWS OF THE LEFT CLAVICLE: HISTORY: Pain after trauma. COMPARISON: None. FINDINGS: No acute fracture or destructive osseous lesion. See the shoulder report. Electronically Signed by Lenny Dallas DO 05/18/2019 07:47 P
== END ==
LOC: M WUC 17:40
PROVIDERS: ATTEND Physician Assistant
DX: S40.012A Contusion of left shoulder, initial encounter (principal); X58.XXXA Exposure to other specified factors, initial encounter; Y92.89 Other specified places as the place of occurrence of the external cause; M25.712 Osteophyte, left shoulder

== ENCOUNTER → 2020-01-28 | Outpatient (REF) | payer MEDICARE, OTHER ==
[~2020-01-28] MED LIST changes: -DONE1TAB62; -DONE1TAB62 PO; +DONE1TAB64; +DONE1TAB64 PO; +MEMA10TA19; +MEMA10TA19 PO; -MEMA1TAB PO; -MEMA1TAB2; -MEMA1TAB2 PO; +MEMA1TAB3 PO; +SERT25TA21 PO; -SERT25TA88 PO; -SIMV10TA2 PO; +SIMV10TA21 PO; -SIMV20TA2 PO; +SIMV20TA22 PO; -SIMV40TA2 PO; +SIMV40TA20 PO
[2020-01-28 17:36] LABS: PERCENT SATURATION 51.4 % (19.7-50.0)
== END ==
LOC: M LAB REF 16:42
PROVIDERS: ATTEND Internal Medicine Nephrology
DX: D50.9 Iron deficiency anemia, unspecified (principal)

== ENCOUNTER 2021-02-19 17:47 | Inpatient (IN) | payer MEDICARE, OTHER ==
[~2021-02-19] VITALS: Ht 182.9 cm; Wt 105.3 kg
[~2021-02-19 17:47] MED LIST changes: -AMLO10TA5 PO; +AMLO1TAB25 PO; +ASPI-569 PO; -ASPI81TAEC PO; -ENAL20TA PO; +ENAL20TA11 PO; +HYDR-3490 PO; -HYDR25TAB PO; +PANT40TA29 PO; -PANT40TA3 PO
[2021-02-19] MEDS ORDERED: GLIM1TAB4 (18:28)
[2021-02-19] MEDS ORDERED: TORS20TA2 PO (18:28)
[2021-02-19] MEDS ORDERED: TRES1INJ (18:28)
--- NOTE | 2021-02-19 18:56 | REP ---
INDICATION: Altered Mental Status. COMPARISON: 01/13/2019 TECHNIQUE: Portable FINDINGS: The technique utilized in obtaining the radiograph has magnified the cardiac silhouette and accentuated the interstitial markings. The superior mediastinal structures are midline. The cardiac silhouette is slightly enlarged but accentuated by technique. There is thoracic aortic tortuosity status quo.. The diaphragmatic surfaces of the lungs are regular, and the costophrenic angles are clear. The pulmonary bain are clear. The imaged osseous structures are intact. IMPRESSION: There is no acute cardiopulmonary disease. Mild cardiomegaly. <Electronically signed by Lenny Dallas > 02/19/21 [id number]
[2021-02-19 19:05] LABS: BASO % 0.2 % (0.0-1.0); EOS % 0.1 % (0.0-3.0); HEMATOCRIT 54.4 % (42.0-52.0); HEMOGLOBIN 16.9 g/dl (13.5-17.5); LYMPH # 1.4 10^3/uL (1.5-5.0); MEAN CORPUSCULAR HEMOGLOBIN 29.6 pg (27.0-33.0); MEAN CORPUSCULAR HGB CONC 31.1 g/dl (32.0-36.5); MEAN CORPUSCULAR VOLUME 95.4 fl (80.0-96.0); MONO # 0.8 10^3/uL (0.0-0.8); MONO % 4.5 % (2.0-8.0); NEUTROPHILS # 14.7 10^3/uL (1.5-8.5); NEUTROPHILS % 86.5 % (36.0-66.0); PLATELET COUNT, AUTOMATED 211 10^3/uL (150-450); WHITE BLOOD COUNT 16.9 10^3/uL (4.0-10.0)
[2021-02-19] MEDS ORDERED: NS 500 ML IV ONE (19:20)
[2021-02-19 19:43] LABS: ALBUMIN 3.7 GM/DL (3.2-5.2); BILIRUBIN,DIRECT 0.3 MG/DL (0.0-0.2); BILIRUBIN,TOTAL 0.7 MG/DL (0.2-1.0); CALCIUM LEVEL 9.2 MG/DL (8.8-10.2); CREATININE FOR GFR 1.61 MG/DL (0.70-1.30); GLOMERULAR FILTRATION RATE 44.2 (>35); THYROID STIMULATING HORMONE 2.27 uIU/ML (0.358-3.740); TOTAL PROTEIN 7.1 GM/DL (6.4-8.2)
--- NOTE | 2021-02-19 19:54 | REPVR ---
PROCEDURE INFORMATION: Exam: CT Head Without Contrast Exam date and time: 02/19/2021 7:24 PM Age: 81 years old Clinical indication: Altered mental status/memory loss TECHNIQUE: Imaging protocol: Computed tomography of the head without contrast. Radiation optimization: All CT scans at this facility use at least one of these dose optimization techniques: automated exposure control; mA and/or kV adjustment per patient size (includes targeted exams where dose is matched to clinical indication); or iterative reconstruction. COMPARISON: CT Head without contrast 09/14/2018 9:38 PM FINDINGS: Brain: The brain demonstrates progressive, diffuse volume loss. There is white matter hypodensity most consistent with chronic small vessel ischemic change. No visible evolving territorial infarct. No hemorrhage. Cerebral ventricles: The ventricles are enlarged in keeping with volume loss. The ventricles appear markedly larger in the interval probably reflecting the further volume loss. Paranasal sinuses: Visualized sinuses are unremarkable. No fluid levels. Mastoid air cells: Visualized mastoid air cells are well aerated. Bones/joints: Unremarkable. No acute fracture. Soft tissues: Unremarkable. IMPRESSION: 1. No acute intracranial abnormality seen. 2. Progressive generalized cerebral volume loss since the prior study. Electronically signed by: Jennifer Bob On 02/19/2021 19:53:53 PM
[2021-02-19] MEDS ORDERED: SIMVASTATIN 40 MG TAB PO SCH (21:00)
[2021-02-19] MEDS: POTASSIUM CHLORIDE 10 MEQ SR TABLET PO SCH (21:00)
[2021-02-19] MEDS ORDERED: traZODone 50 MG TAB PO SCH (21:00)
[2021-02-19] MEDS: MEMANTINE 5MG TABLET (NAMENDA) PO SCH (21:00)
--- NOTE | 2021-02-19 21:17 | HPEPDOC ---
[facility] Medical History & Physical History and Physical CHIEF COMPLAINT: HISTORY OF PRESENT ILLNESS: PAST MEDICAL HISTORY: 1. . 2. . 3. . PAST SURGICAL HISTORY: 1. . 2. . 3. . SOCIAL HISTORY: Marital status: . Resides in: Children: Employment: Tobacco use: ETOH: Illicit drug use: Tattoos done unprofessionally: . IV drug use: Other relevant social factors: FAMILY HISTORY: Father: Mother: Siblings: Children: Hereditary Diseases: Unexpected deaths due to medical reasons: ALLERGIES: Please see below. REVIEW OF SYSTEMS: CONSTITUTIONAL: . HEENT: . CARDIOVASCULAR: . RESPIRATORY: . GASTROINTESTINAL: . GENITOURINARY: . SKIN: . MUSCULOSKELETAL: . NEUROLOGICAL: . PSYCHIATRIC: . ENDOCRINE: . HEMATOLOGIC/LYMPHATIC: . HOME MEDICATIONS: Please see below. PHYSICAL EXAMINATION: VITAL SIGNS: Temperature , pulse , respiratory rate , blood pressure , pulse oximetry % on room air. GENERAL APPEARANCE: . HEENT: . CARDIOVASCULAR: . LUNGS: . ABDOMEN: . MUSCULOSKELETAL: . EXTREMITIES: . NEUROLOGICAL: . PSYCHIATRIC: . LABORATORY DATA: See below. IMAGING: MICROBIOLOGY: Please see below. ASSESSMENT: . . PLAN: 1. . Vital Signs Vital Signs Date Time Temp Pulse Resp B/P (MAP) Pulse Ox O2 Delivery O2 Flow Rate FiO2 02/19/21 20:17 170/84 (112) 02/19/21 20:00 94 16 96 Room Air 02/19/21 18:20 96.9 Laboratory Data Labs 24H Laboratory Tests 2 02/19/21 18:51: Immature Granulocyte % (Auto) 0.7, Neutrophils (%) (Auto) 86.5H, Lymphocytes (%) (Auto) 8.0L, Monocytes (%) (Auto) 4.5, Eosinophils (%) (Auto) 0.1, Basophils (%) (Auto) 0.2, Neutrophils # (Auto) 14.7H, Lymphocytes # (Auto) 1.4L, Monocytes # (Auto) 0.8, Eosinophils # (Auto) 0.0, Basophils # (Auto) 0.0, Nucleated Red Blood Cells % (auto) 0.0, POC Glucose (Misc Panel) 159H, POC Sodium (Misc Panel) 151H, POC Potassium (Misc Panel) 3.9, POC Chloride (Misc Panel) 103, POC Total CO2 (Misc Panel) 32.0H, POC Blood Urea Nitrogen (Misc Panel 36H, POC Ionized Calcium (Misc Panel) 4.7, POC Creatinine (Misc Panel) 1.6H, POC Hematocrit (Misc Panel) 51.0, Anion Gap 7L, Glomerular Filtration Rate 44.2, Lactic Acid Level 1.6, Calcium Level 9.2, Total Bilirubin 0.7, Direct Bilirubin 0.3H, Aspartate Amino Transf (AST/SGOT) 24, Alanine Aminotransferase (ALT/SGPT) 49, Alkaline Phosphatase 74, Total Protein 7.1, Albumin 3.7, Albumin/Globulin Ratio 1.1, Thyroid Stimulating Hormone (TSH) 2.270 02/19/21 18:53: POC Troponin I (Misc) 0.02 02/19/21 20:04: Urine Color YELLOW, Urine Appearance CLEAR, Urine pH 5.0, Urine Specific [place] 1.010, Urine Protein NEGATIVE, Urine Glucose (UA) NEGATIVE, Urine Ketones NEGATIVE, Urine Blood NEGATIVE, Urine Nitrite NEGATIVE, Urine Bilirubin NEGATIVE, Urine Urobilinogen 0.2, Urine Leukocyte Esterase NEGATIVE, Urine WBC (Auto) 1, Urine RBC (Auto) 0, Urine Hyaline Casts (Auto) 2, Urine Bacteria (Auto) NEGATIVE, Urine Squamous Epithelial Cells 0, Urine Mucus (Auto) SMALL, Urine Sperm (Auto) 02/19/21 20:52: CBC/BMP Laboratory Tests 02/19/21 18:51 Microbiology Microbiology 02/19/21 Blood Culture, Received Pending Home Medications Scheduled Calcitriol (Rocaltrol) 0.25 Mcg Capsule, 0.25 MCG PO DAILY Cholecalciferol (Vitamin D3) (Vitamin D3) 50 Mcg Capsule, 50 MCG PO DAILY TAKES AT LUNCHTIME Donepezil HCl (Donepezil HCl) 23 Mg Tab, 23 MG PO DAILY Famotidine (Famotidine) 20 Mg Tab, 20 MG PO DAILY Ferrous Sulfate (Ferrous Sulfate) 325 Mg Tab, 325 MG PO DAILY TAKES WITH LUNCH Glimepiride (Amaryl) 1 Mg Tablet, 1 MG PO DAILY Memantine HCl (Memantine HCl) 10 Mg Tab, 10 MG PO BID Metoprolol Succinate (Metoprolol Succinate) 25 Mg Tab, 25 MG PO QHS Potassium Chloride (Potassium Chloride) 20 Meq Tab, 40 MEQ PO BID Prednisone (Prednisone) 10 Mg Tablet, 10 MG PO DAILY Rivaroxaban (Xarelto) 15 Mg Tablet, 15 MG PO QPM TAKES AT DINNERTIME Sertraline HCl (Sertraline HCl) 25 Mg Tab, 25 MG PO QHS Simvastatin (Zocor) 40 Mg Tab, 40 MG PO QHS Torsemide (Torsemide) 100 Mg Tablet, 50 MG PO DAILY Trazodone HCl (Trazodone HCl) 50 Mg Tablet, 100 MG PO QHS Umeclidinium Brm/Vilanterol Tr (Anoro Ellipta 62.5-25 Mcg INH) 1 Each Blst.w.dev, 1 PUFF PO QHS Scheduled PRN Ipratropium/Albuterol Sulfate (Iprat-Albut 0.5-3(2.5) mg/3 ml) 3 Ml Ampul.neb, 3 ML INH Q6H PRN for SHORTNESS OF BREATH Allergies Coded Allergies: No Known Allergies (Unverified , 01/26/18) YOLANDE BROWN MD Feb 19, 2021 21:17
[2021-02-19] MEDS ORDERED: GLUCAGON INJ 1MG VIAL SC PRN (21:20)
[2021-02-19] MEDS ORDERED: DEXTROSE 50% 50 ML SYRINGE IV PRN (21:20)
[2021-02-19] MEDS ORDERED: MOM 30ML SUSPENSION UDC PO PRN (21:20)
[2021-02-19] MEDS ORDERED: GLUCOSE 4GM CHEW TABLET PO PRN (21:20)
[2021-02-19] MEDS ORDERED: MAALOX 30 ML SUSP *UDC PO PRN (21:20)
[2021-02-19] MEDS ORDERED: ACETAMINOPHEN TAB 650MG DOSE (2X325MG) PO PRN (21:20)
[2021-02-19 21:43] LABS: RSV AMPLIFICATION NEGATIVE (NEGATIVE)
--- NOTE | 2021-02-19 21:44 | ECGEPIP ---
[facility] - ED Test Date: 2021-02-19 Pat Name: JIMIME HALL Department: Room: - Gender: Male Software Product Specialist: EDMUNDJACKELYNDANYELLE : 1940 Requested By: ANITA Zhou Order Number: [id number] Reading MD: Erin Palomo Measurements Intervals [place] Rate: 86 P: SC: QRS: -89 QRSD: 138 T: 78 QT: 416 QTc: 497 Interpretive Statements Atrial fibrillation Left axis deviation Right bundle branch block decreased rate 12/13/18 Electronically Signed on 02-19-2021 21:43:55 EDT by Erin Palomo
[2021-02-19 21:47] LABS: MAGNESIUM LEVEL 2.8 MG/DL (1.8-2.4); URIC ACID 8.5 MG/DL (3.5-7.2)
[2021-02-19] MEDS: HumaLOG INSULIN (NovoLOG) PER UNIT SC SCH (22:21)
[2021-02-19] MEDS ORDERED: AMAR1TAB PO (22:45)
[2021-02-19] MEDS ORDERED: TORS100T PO (22:55)
[2021-02-19] MEDS ORDERED: D200CAP2 PO (22:55)
[2021-02-19] MEDS ORDERED: IPRA0.00 INH (22:55)
[2021-02-19 23:00] VITALS: BP 158/80
[2021-02-19] MEDS ORDERED: LORazepam 2 MG/ML VIAL IM STA (23:08)
[2021-02-19] MEDS ORDERED: NICOTINE 14 MG/24 HR TRANSDERMAL TD PRN (23:25)
[2021-02-19] MEDS ORDERED: IPRATROPIUM 0.5MG/ALBUTEROL 2.5MG INH SOL UD 3ML (DUONEB) INH PRN (23:25)
[2021-02-19 23:53] VITALS: BP 162/82
[2021-02-19] MEDS: METOPROLOL SUCC *XL* 25MG TAB (TopROL *XL*) PO SCH (23:53)
[2021-02-19] MEDS: SERTRALINE HCL 25 MG TABLET PO SCH (23:54)
[2021-02-19] MEDS: RIVAROXABAN 15 MG TAB (XARELTO) PO SCH (23:54)
[2021-02-20] MEDS: D5W 1,000 ML IV SCH ×3 (00:14→21:14)
[2021-02-20] MEDS ORDERED: RAMELTEON 8 MG TAB (ROZEREM) PO SCH (00:45)
--- NOTE | 2021-02-20 01:11 | HPEPDOC ---
[facility] Medical History & Physical Date of Admission Feb 19, 2021 Date of Service: Feb 19, 2021 Attending Physician: YOLANDE BROWN MD History and Physical CHIEF COMPLAINT: [81 y/o male with increased ams and weakness x4 days] HISTORY OF PRESENT ILLNESS: [This is an 81 y/o male with a pmh of dementia, cva, chf, hld, htn, cad s/p stents, copd, prostate ca s/p prostatectomy who presents to the ED with his daughter on 02/19 for evaluation of increased weakness and ams. Patient is confused but awake and talking. Daughter provides history. She states that over the past weekend, she has noticed that he has become increasingly weak and has been unable to ambulate ad [place] about the house like he usually does. She states that the other day it seemed as though he was not able to even stand up out of bed d/t weakness. Daughter also states that she believes he has been more confused than baseline lately and not as alert. She denies recent falls.] PAST MEDICAL HISTORY: 1. [See HPI PAST SURGICAL HISTORY: 1. [B/l cataract removal]. 2. [Coronary stent placement]. 3. [Prostatectomy]. SOCIAL HISTORY: Resides in: [With family] Tobacco use:[Current smoker] FAMILY HISTORY: Father - carcinomas Mother - dm ALLERGIES: Please see below. REVIEW OF SYSTEMS: Unable to obtain d/t mentation HOME MEDICATIONS: Please see below. PHYSICAL EXAMINATION: VITAL SIGNS: Please see below. GENERAL APPEARANCE: [This is an acutely agitated 81 y/o male. He is trying to get out of bed and calling out. He does not appear to be in respiratory distress.]. HEENT: [No mass or lesion. EOMI. No scleral icterus. Nares patent. oral mucosa dry.]. CARDIOVASCULAR: [Irregularly irregular rhythm.]. LUNGS: [Decreased lung sounds b/l. Scattered rales]. ABDOMEN: [Soft, nontender]. MUSCULOSKELETAL: [No joint deformity]. EXTREMITIES: [No peripheral edema noted. No overlying skin changes. Pulses intact]. NEUROLOGICAL: [Patient is confused. Patient moves all fours freely. Speech clear.]. PSYCHIATRIC: [Patient is confused.]. LABORATORY DATA: See below. IMAGING: [CXR:FINDINGS: The technique utilized in obtaining the radiograph has magnified the cardiac silhouette and accentuated the interstitial markings. The superior mediastinal structures are midline. The cardiac silhouette is slightly enlarged but accentuated by technique. There is thoracic aortic tortuosity status quo.. The diaphragmatic surfaces of the lungs are regular, and the costophrenic angles are clear. The pulmonary bain are clear. The imaged osseous structures are intact. IMPRESSION: There is no acute cardiopulmonary disease. Mild cardiomegaly. Head CT: FINDINGS: Brain: The brain demonstrates progressive, diffuse volume loss. There is white matter hypodensity most consistent with chronic small vessel ischemic change. No visible evolving territorial infarct. No hemorrhage. Cerebral ventricles: The ventricles are enlarged in keeping with volume loss. The ventricles appear markedly larger in the interval probably reflecting the further volume loss. Paranasal sinuses: Visualized sinuses are unremarkable. No fluid levels. Mastoid air cells: Visualized mastoid air cells are well aerated. Bones/joints: Unremarkable. No acute fracture. Soft tissues: Unremarkable. IMPRESSION: 1. No acute intracranial abnormality seen. 2. Progressive generalized cerebral volume loss since the prior study. ] MICROBIOLOGY: Please see below. ASSESSMENT: [This is an 81 y/o male with a pmh of dementia, cva, chf, hld, htn, cad s/p stents, copd, prostate ca s/p prostatectomy who presents to the ED with his daughter on 02/19 for evaluation of increased weakness and ams. Labwork notable for sodium of 152 and lux with cr of 1.6 from baseline 1.2]. . PLAN: 1. [Weakness/ams - CT head negative - potentially secondary to poor oral intake - infectious etiology seems unlikely at this time - admit to pcu for w/u 2. LUX - most likely pre renal d/t poor oral intake - renal us, urine electrolytes - holding nephrotoxic medications and diuretics - will give ivf with d5w - repeat renal function in the am 3. Hypernatremia - likely secondary to water deficit - free water deficit calculated to be approx 4.4L. 1/2 replacement of this would equal 90ml/hr D5w for the next 24 hours - will repeat na at 0600 4. Dementia - patient agitated during exam - will begin rozerem nightly - continue nightly trazodone - continue donepezil, memantine 5. A-fib - patient rate controlled - continue xarelto, metoprolol 6. DM - sliding scale - hypoglycemic protocol 7. COPD - patient not in acute exacerbation - continue prednisone oral - continue inhalers - nicotine patch 8. GERD - continue famotidine 9. HLD - continue simvastatin DVT prophylaxis - patient on xarelto]. Vital Signs Vital Signs Date Time Temp Pulse Resp B/P (MAP) Pulse Ox O2 Delivery O2 Flow Rate FiO2 02/19/21 23:53 89 162/82 02/19/21 23:17 97.9 16 98 Room Air Laboratory Data Labs 24H Laboratory Tests 2 02/19/21 18:51: Immature Granulocyte % (Auto) 0.7, Neutrophils (%) (Auto) 86.5H, Lymphocytes (%) (Auto) 8.0L, Monocytes (%) (Auto) 4.5, Eosinophils (%) (Auto) 0.1, Basophils (%) (Auto) 0.2, Neutrophils # (Auto) 14.7H, Lymphocytes # (Auto) 1.4L, Monocytes # (Auto) 0.8, Eosinophils # (Auto) 0.0, Basophils # (Auto) 0.0, Nucleated Red Blood Cells % (auto) 0.0, POC Glucose (Misc Panel) 159H, POC Sodium (Misc Panel) 151H, POC Potassium (Misc Panel) 3.9, POC Chloride (Misc Panel) 103, POC Total CO2 (Misc Panel) 32.0H, POC Blood Urea Nitrogen (Misc Panel 36H, POC Ionized Calcium (Misc Panel) 4.7, POC Creatinine (Misc Panel) 1.6H, POC Hematocrit (Misc Panel) 51.0, Anion Gap 7L, Glomerular Filtration Rate 44.2, Osmolality 322H, Lactic Acid Level 1.6, Uric Acid 8.5H, Calcium Level 9.2, Phosphorus Level 4.0, Magnesium Level 2.8H, Total Bilirubin 0.7, Direct Bilirubin 0.3H, Aspartate Amino Transf (AST/SGOT) 24, Alanine Aminotransferase (ALT/SGPT) 49, Alkaline Phosphatase 74, Total Creatine Kinase 97, Total Protein 7.1, Albumin 3.7, Albumin/Globulin Ratio 1.1, Thyroid Stimulating Hormone (TSH) 2.270 02/19/21 18:53: POC Troponin I (Misc) 0.02 02/19/21 20:04: Urine Color YELLOW, Urine Appearance CLEAR, Urine pH 5.0, Urine Specific [place] 1.010, Urine Protein NEGATIVE, Urine Glucose (UA) NEGATIVE, Urine Ketones NEGATIVE, Urine Blood NEGATIVE, Urine Nitrite NEGATIVE, Urine Bilirubin NEGATIVE, Urine Urobilinogen 0.2, Urine Leukocyte Esterase NEGATIVE, Urine WBC (Auto) 1, Urine RBC (Auto) 0, Urine Hyaline Casts (Auto) 2, Urine Bacteria (Auto) NEGATIVE, Urine Squamous Epithelial Cells 0, Urine Mucus (Auto) SMALL, Urine Sperm (Auto) 02/19/21 20:52: Coronavirus (COVID-19)(PCR) NEGATIVE, Influenza Type A (RT-PCR) NEGATIVE, Influenza Type B (RT-PCR) NEGATIVE, Respiratory Syncytial Virus (PCR) NEGATIVE CBC/BMP Laboratory Tests 02/19/21 18:51 Microbiology Microbiology 02/20/21 Blood Culture, Received Pending 02/19/21 Blood Culture, Received Pending Home Medications Scheduled Calcitriol (Rocaltrol) 0.25 Mcg Capsule, 0.25 MCG PO DAILY Cholecalciferol (Vitamin D3) (Vitamin D3) 50 Mcg Capsule, 50 MCG PO DAILY TAKES AT LUNCHTIME Donepezil HCl (Donepezil HCl) 23 Mg Tab, 23 MG PO DAILY Famotidine (Famotidine) 20 Mg Tab, 20 MG PO DAILY Ferrous Sulfate (Ferrous Sulfate) 325 Mg Tab, 325 MG PO DAILY TAKES WITH LUNCH Glimepiride (Amaryl) 1 Mg Tablet, 1 MG PO DAILY Memantine HCl (Memantine HCl) 10 Mg Tab, 10 MG PO BID Metoprolol Succinate (Metoprolol Succinate) 25 Mg Tab, 25 MG PO QHS Potassium Chloride (Potassium Chloride) 20 Meq Tab, 40 MEQ PO BID Prednisone (Prednisone) 10 Mg Tablet, 10 MG PO DAILY Rivaroxaban (Xarelto) 15 Mg Tablet, 15 MG PO QPM TAKES AT DINNERTIME Sertraline HCl (Sertraline HCl) 25 Mg Tab, 25 MG PO QHS Simvastatin (Zocor) 40 Mg Tab, 40 MG PO QHS Torsemide (Torsemide) 100 Mg Tablet, 50 MG PO DAILY Trazodone HCl (Trazodone HCl) 50 Mg Tablet, 100 MG PO QHS Umeclidinium Brm/Vilanterol Tr (Anoro Ellipta 62.5-25 Mcg INH) 1 Each Blst.w.dev, 1 PUFF PO QHS Scheduled PRN Ipratropium/Albuterol Sulfate (Iprat-Albut 0.5-3(2.5) mg/3 ml) 3 Ml Ampul.neb, 3 ML INH Q6H PRN for SHORTNESS OF BREATH Allergies Coded Allergies: No Known Allergies (Unverified , 01/26/18) A-FIB/CHADSVASC A-FIB History Current/History of A-Fib/PAF?: Yes Current PO Anticoag Therapy: Yes Attending Note Attending Note Time of service 12:31 AM 81-year-old male with a history of dementia HFpEF COPD, CAD, COPD, prostate cancer who was brought to the hospital by his daughter because of worsening confusion and inability to walk. The patient's physical exam was remarkable for agitation He will be admitted for evaluation of SIRS, metabolic encephalopathy possibly due to hyponatremia, and, LUX. Rest per MELIS[facility]'s H&P HARINDER WHITEHEAD Feb 20, 2021 01:11 YOLANDE BROWN MD Feb 20, 2021 06:47
[2021-02-20 04:00] VITALS: BP 148/98
[2021-02-20 05:53] LABS: HEMATOCRIT 50.8 % (42.0-52.0); HEMOGLOBIN 15.5 g/dl (13.5-17.5); MEAN CORPUSCULAR HGB CONC 30.5 g/dl (32.0-36.5); MEAN CORPUSCULAR VOLUME 98.3 fl (80.0-96.0); PLATELET COUNT, AUTOMATED 182 10^3/uL (150-450); RED BLOOD COUNT 5.17 10^6/uL (4.30-6.10); WHITE BLOOD COUNT 18.7 10^3/uL (4.0-10.0)
[2021-02-20 06:26] LABS: HEMOGLOBIN A1c 6.8 %
[2021-02-20 06:30] LABS: CALCIUM LEVEL 8.7 MG/DL (8.8-10.2); CREATININE FOR GFR 1.6 MG/DL (0.70-1.30); GLOMERULAR FILTRATION RATE 44.5 (>35); POTASSIUM SERUM 3.3 MEQ/L (3.5-5.1)
[2021-02-20] MEDS ORDERED: RAMELTEON 8 MG TAB (ROZEREM) PO PRN (07:50)
[2021-02-20 08:00] VITALS: BP 133/78
[2021-02-20] MEDS ORDERED: IPRATROPIUM 0.5MG/ALBUTEROL 2.5MG INH SOL UD 3ML (DUONEB) NEB SCH (08:00)
[2021-02-20] MEDS ORDERED: SALMETEROL DISKUS 50MCG INHALER (SEREVENT) INH SCH (08:00)
[2021-02-20] MEDS ORDERED: TIOTROPIUM INHALER/CAPSULE (SPIRIVA) INH SCH (08:00)
[2021-02-20] MEDS: MIRALAX *UNIT DOSE* 17GM PACKET PO SCH (09:00)
[2021-02-20] MEDS ORDERED: FAMOTIDINE 20 MG TAB PO SCH (09:00)
[2021-02-20] MEDS: HumaLOG INSULIN (NovoLOG) PER UNIT SC SCH ×4 (10:04→21:00)
[2021-02-20] MEDS: GLIMEPIRIDE 1 MG TABLET PO SCH (10:05)
[2021-02-20] MEDS: POTASSIUM CHLORIDE 10 MEQ SR TABLET PO SCH ×3 (10:05→22:05)
[2021-02-20] MEDS: predniSONE 10 MG TAB PO SCH (10:05)
[2021-02-20] MEDS: DONEPEZIL 5 MG TAB PO SCH (10:06)
[2021-02-20] MEDS: MEMANTINE 5MG TABLET (NAMENDA) PO SCH ×3 (10:06→22:03)
[2021-02-20] MEDS: CALCITRIOL 0.25 MCG CAP (S0169) PO SCH (10:06)
--- NOTE | 2021-02-20 10:12 | REP ---
INDICATION: confusion/ distended abdomen / r/o constipation COMPARISON: None. TECHNIQUE: Supine view of the abdomen and pelvis. FINDINGS: Bowel gas pattern is nonspecific and without obstruction or perforation. No significant fecal stasis noted. No organomegaly. No abnormal calcifications. Skeletal structures intact. IMPRESSION: Relatively normal abdominal radiograph. <Electronically signed by Tez Granados > 02/20/21 [id number]
[2021-02-20] MEDS: IPRATROPIUM 0.5MG/ALBUTEROL 2.5MG INH SOL UD 3ML (DUONEB) NEB SCH ×4 (11:22→23:08)
[2021-02-20 12:00] VITALS: BP 132/82
[2021-02-20] MEDS ORDERED: FERROUS SULFATE 325MG TAB PO SCH (12:00)
[2021-02-20] MEDS ORDERED: IPRATROPIUM 0.5MG/ALBUTEROL 2.5MG INH SOL UD 3ML (DUONEB) INH PRN (12:05)
[2021-02-20] MEDS ORDERED: QUEtiapine FUMARATE 12.5 MG HALF-TAB PO ONE (13:00)
--- NOTE | 2021-02-20 14:52 | IPNPDOC ---
Subjective Date Seen The patient was seen on 02/20/21. Subjective Chief Complaint/HPI Patient confused sometimes calling out that he is not feeling well however cannot say what is bothering him. No fever or chills no diarrhea no vomiting. No urinary retention, no fecal impaction noted in abdominal x-ray. Objective Physical Examination General Exam: Positive: Alert, No Acute Distress, Other (Confused intermittently agitated and shouting) Eye Exam: Positive: PERRLA, Conjunctiva & lids normal ENT Exam: Positive: Atraumatic, Mucous membr. moist/pink, Pharynx Normal Neck Exam: Positive: Supple; Negative: JVD, thyromegaly Chest Exam: Positive: Clear to auscultation, Normal air movement Heart Exam: Positive: Rate Normal, Regular Rhythm, Normal S1, Normal S2; Negative: Murmurs, Rubs Abdomen Exam: Positive: Normal bowel sounds, Soft; Negative: Tenderness, Hepatospenomegaly Extremity Exam: Negative: Clubbing, Cyanosis, Edema Assessment /Plan Assessment This is an 81 y/o male with a pmh of advanced dementia with 24 into 7 care at home, cva, chf, hld, htn, cad s/p stents, copd, prostate ca s/p prostatectomy who presents to the ED with his daughter on 02/19 for evaluation of increased weakness and altered mental status. Labwork notable for sodium of 152 . He was admitted for metabolic encephalopathy on the background of dementia. Acute metabolic encephalopathy on the background of dementia with delirium Likely due to hypernatremia This is likely due to fluid restriction at home and increased dose of diuretics. He may be having mild COPD exacerbation also No signs or symptoms of infection noted Will give Seroquel Continue home meds of trazodone and sertraline We will continue with dextrose Hypernatremia Improving with dextrose Hypokalemia Replaced CKD stage III Creatinine close to baseline Continue calcitriol Advanced dementia continue nightly trazodone continue donepezil, memantine A-fib patient rate controlled continue xarelto, metoprolol DM sliding scale hypoglycemic protocol Continue glimepiride COPD/chronic bronchitis As per daughter is difficult for him to take inhalers at home He has ongoing wheezing and rhonchi He may be in mild exacerbation We will start him on DuoNebs every 4 hours, and budesonide nebs We will also add Doxy We will continue on home dose of prednisone will not increase it at this point GERD continue famotidine HLD continue simvastatin DME required: Hospital bed: Patient has CHF and COPD and requires head of bed to be elevated more than 30 degrees most off the time and often has immediate need to change body position for SOB. Also has decreased mobility with advancing dementia and requires frequent change in position. Plan/VTE VTE Prophylaxis Ordered?: Yes VS, I&O, 24H, Fishbone Vital Signs/I&O Vital Signs Date Time Temp Pulse Resp B/P (MAP) Pulse Ox O2 Delivery O2 Flow Rate FiO2 02/20/21 12:00 97.8 75 18 132/82 (99) 97 Room Air I&O- Last 24 Hours up to 6 AM 02/20/21 06:00 Intake Total 250 ml Balance 250 ml Laboratory Data 24H LABS Laboratory Tests 2 02/19/21 18:51: Immature Granulocyte % (Auto) 0.7, Neutrophils (%) (Auto) 86.5H, Lymphocytes (%) (Auto) 8.0L, Monocytes (%) (Auto) 4.5, Eosinophils (%) (Auto) 0.1, Basophils (%) (Auto) 0.2, Neutrophils # (Auto) 14.7H, Lymphocytes # (Auto) 1.4L, Monocytes # (Auto) 0.8, Eosinophils # (Auto) 0.0, Basophils # (Auto) 0.0, Nucleated Red Blood Cells % (auto) 0.0, POC Glucose (Misc Panel) 159H, POC Sodium (Misc Panel) 151H, POC Potassium (Misc Panel) 3.9, POC Chloride (Misc Panel) 103, POC Total CO2 (Misc Panel) 32.0H, POC Blood Urea Nitrogen (Misc Panel 36H, POC Ionized Calcium (Misc Panel) 4.7, POC Creatinine (Misc Panel) 1.6H, POC Hematocrit (Misc Panel) 51.0, Anion Gap 7L, Glomerular Filtration Rate 44.2, Osmolality 322H, Lactic Acid Level 1.6, Uric Acid 8.5H, Calcium Level 9.2, Phosphorus Level 4.0, Magnesium Level 2.8H, Total Bilirubin 0.7, Direct Bilirubin 0.3H, Aspartate Amino Transf (AST/SGOT) 24, Alanine Aminotransferase (ALT/SGPT) 49, Alkaline Phosphatase 74, Total Creatine Kinase 97, Total Protein 7.1, Albumin 3.7, Albumin/Globulin Ratio 1.1, Thyroid Stimulating Hormone (TSH) 2.270 02/19/21 18:53: POC Troponin I (Misc) 0.02 02/19/21 20:04: Urine Color YELLOW, Urine Appearance CLEAR, Urine pH 5.0, Urine Specific [place] 1.010, Urine Protein NEGATIVE, Urine Glucose (UA) NEGATIVE, Urine Ketones NEGATIVE, Urine Blood NEGATIVE, Urine Nitrite NEGATIVE, Urine Bilirubin NEGATIVE, Urine Urobilinogen 0.2, Urine Leukocyte Esterase NEGATIVE, Urine WBC (Auto) 1, Urine RBC (Auto) 0, Urine Hyaline Casts (Auto) 2, Urine Bacteria (Auto) NEGATIVE, Urine Squamous Epithelial Cells 0, Urine Mucus (Auto) SMALL, Urine Sperm (Auto) 02/19/21 20:52: Coronavirus (COVID-19)(PCR) NEGATIVE, Influenza Type A (RT-PCR) NEGATIVE, Influenza Type B (RT-PCR) NEGATIVE, Respiratory Syncytial Virus (PCR) NEGATIVE 02/20/21 05:39: Nucleated Red Blood Cells % (auto) 0.0, Anion Gap 3L, Glomerular Filtration Rate 44.5, Estimated Mean Plasma Glucose 148H, Hemoglobin A1c 6.8, Calcium Level 8.7L CBC/BMP Laboratory Tests 02/19/21 18:51 02/20/21 05:39 Microbiology Microbiology 02/20/21 Blood Culture, Received Pending 02/19/21 Blood Culture, Received Pending DEMETRA DE GUZMAN MD Feb 20, 2021 14:52
[2021-02-20] MEDS: DOXYCYCLINE HYCLATE 100MG TABLET PO SCH ×4 (15:00→22:03)
[2021-02-20 16:00] VITALS: BP 181/92
[2021-02-20] MEDS: RIVAROXABAN 15 MG TAB (XARELTO) PO SCH (18:27)
[2021-02-20 20:00] VITALS: BP 138/64
[2021-02-20] MEDS: METOPROLOL SUCC *XL* 25MG TAB (TopROL *XL*) PO SCH ×2 (21:00→22:04)
[2021-02-20] MEDS: traZODone 50 MG TAB PO SCH ×2 (21:00→22:04)
[2021-02-20] MEDS: SIMVASTATIN 40 MG TAB PO SCH ×2 (21:00→22:04)
[2021-02-20] MEDS: SERTRALINE HCL 25 MG TABLET PO SCH ×2 (21:00→22:04)
[2021-02-21] VITALS: BP 116/74
[2021-02-21 06:12] LABS: BASO % 0.2 % (0.0-1.0); EOS # 0.1 10^3/uL (0.0-0.5); EOS % 0.8 % (0.0-3.0); HEMATOCRIT 45.1 % (42.0-52.0); LYMPH % 12.1 % (24.0-44.0); MEAN CORPUSCULAR HEMOGLOBIN 29.9 pg (27.0-33.0); MEAN CORPUSCULAR VOLUME 96.2 fl (80.0-96.0); MONO # 0.9 10^3/uL (0.0-0.8); MONO % 5.5 % (2.0-8.0); NEUTROPHILS # 13.4 10^3/uL (1.5-8.5); NEUTROPHILS % 80.9 % (36.0-66.0); PLATELET COUNT, AUTOMATED 172 10^3/uL (150-450); RED BLOOD COUNT 4.69 10^6/uL (4.30-6.10); WHITE BLOOD COUNT 16.6 10^3/uL (4.0-10.0)
[2021-02-21 06:37] LABS: BLOOD UREA NITROGEN 19 MG/DL (7-18); CALCIUM LEVEL 8.3 MG/DL (8.8-10.2); CARBON DIOXIDE LEVEL 34 MEQ/L (21-32); CHLORIDE LEVEL 104 MEQ/L (98-107); CREATININE FOR GFR 1.22 MG/DL (0.70-1.30); GLOMERULAR FILTRATION RATE > 60.0 (>35); GLUCOSE, FASTING 147 MG/DL (70-100); POTASSIUM SERUM 3.1 MEQ/L (3.5-5.1); SODIUM LEVEL 144 MEQ/L (136-145)
[2021-02-21] MEDS: IPRATROPIUM 0.5MG/ALBUTEROL 2.5MG INH SOL UD 3ML (DUONEB) NEB SCH ×2 (07:37→12:00)
[2021-02-21 08:00] VITALS: BP 131/84
[2021-02-21] MEDS ORDERED: POTASSIUM CHLORIDE 10 MEQ SR TABLET PO ONE (08:00)
[2021-02-21] MEDS: MIRALAX *UNIT DOSE* 17GM PACKET PO SCH (09:00)
[2021-02-21] MEDS ORDERED: QUEtiapine FUMARATE 12.5 MG HALF-TAB PO SCH ×2 (09:00→21:00)
[2021-02-21] MEDS ORDERED: POTASSIUM CHLORIDE 10 MEQ SR TABLET PO SCH (09:00)
[2021-02-21] MEDS ORDERED: SERT25TA21 PO (09:35)
[2021-02-21] MEDS ORDERED: IPRA0.00 INH ×2 (09:35→09:37)
[2021-02-21] MEDS ORDERED: QUET25TA3 PO (09:36)
[2021-02-21] MEDS ORDERED: DOXY100T PO (09:36)
[2021-02-21] MEDS ORDERED: TORS20TA2 PO (09:39)
[2021-02-21] MEDS: HumaLOG INSULIN (NovoLOG) PER UNIT SC SCH ×2 (09:46→12:57)
[2021-02-21] MEDS: GLIMEPIRIDE 1 MG TABLET PO SCH (09:47)
[2021-02-21] MEDS: MEMANTINE 5MG TABLET (NAMENDA) PO SCH (09:47)
[2021-02-21] MEDS: CALCITRIOL 0.25 MCG CAP (S0169) PO SCH (09:48)
[2021-02-21] MEDS: DONEPEZIL 5 MG TAB PO SCH (09:48)
[2021-02-21] MEDS: predniSONE 10 MG TAB PO SCH (09:48)
[2021-02-21] MEDS: DOXYCYCLINE HYCLATE 100MG TABLET PO SCH (09:49)
--- NOTE | 2021-02-21 10:44 | DS.PDOC ---
Discharge Summary General Date of Admission Feb 19, 2021 at 21:17 Date of Discharge 02/21/21 Discharge Summary PROCEDURES PERFORMED DURING STAY: [None]. 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 Chronic A fib Hyperlipidemia Hypertension H/o prostate ca s/p prostatectomy GERD h/o bleeding duodenal ulcer in 2017 Diabetes COMPLICATIONS/CHIEF COMPLAINT: Ricardo,Acute Encephalopathy,Hypernatremia,Sirs,. HOSPITAL COURSE: This is an 81 y/o male with a pmh of advanced dementia with 24 into 7 care at home, cva, chf, hld, htn, cad s/p stents, copd, prostate ca s/p prostatectomy who presents to the ED with his daughter on 02/19 for evaluation of increased weakness and altered mental status. Labwork notable for sodium of 152 . He was admitted for metabolic encephalopathy on the background of dementia. Acute metabolic encephalopathy on the background of dementia with delirium Likely due to hypernatremia This is likely due to fluid restriction at home and increased dose of diuretics. He may be having mild COPD exacerbation and acute bronchitis contributing to delirium started on seroquel 12.5 at HS. Hypernatremia due to intravascular depletion improved with dextrose. Hypokalemia Replaced CKD stage III Creatinine better than baseline. Continue calcitriol, torsemide Systolic and diastolic CHF with EF of 20% to 25%. patient is euvolic at present will reduce torsemide from 50 mg to 40 mg continue fluid restriction 2 l / day. Advanced dementia continue donepezil, memantine, started on seroquel at night. Continue sertraline. stopped trazodone. A-fib patient rate controlled continue xarelto, metoprolol DM Continue glimepiride COPD/ acute bronchitis As per daughter is difficult for him to take inhalers at home He may be in mild exacerbation continue DuoNebs tid, We will also add Doxy We will continue on home dose of prednisone. GERD continue famotidine HLD continue simvastatin DME required: Hospital bed: Patient has CHF and COPD and requires head of bed to be elevated more than 30 degrees most off the time and often has immediate need to change body position for SOB. Also has decreased mobility with advancing dementia and requires frequent change in position. DISCHARGE MEDICATIONS: Please see below. ALLERGIES: Please see below. PHYSICAL EXAMINATION ON DISCHARGE: VITAL SIGNS: Please see below. General Exam: Positive: Alert, No Acute Distress, Other (Confused intermittently agitated and shouting) Eye Exam: Positive: PERRLA, Conjunctiva & lids normal ENT Exam: Positive: Atraumatic, Mucous membr. moist/pink, Pharynx Normal Neck Exam: Positive: Supple; Negative: JVD, thyromegaly Chest Exam: Positive: Clear to auscultation, Normal air movement Heart Exam: Positive: Rate Normal, Regular Rhythm, Normal S1, Normal S2; Negative: Murmurs, Rubs Abdomen Exam: Positive: Normal bowel sounds, Soft; Negative: Tenderness, Hepatosplenomegaly Extremity Exam: Negative: Clubbing, Cyanosis, Edema LABORATORY DATA: Please see below. ACTIVITY: [As tolerated]. DIET: Carb consistent diet, fluid restriction 2 liters. DISCHARGE PLAN: Home with services DISCHARGE INSTRUCTIONS: PMD in 1 week Nephrology in 2 week Cardiology in 4 weeks DISCHARGE CONDITION: [Stable]. TIME SPENT ON DISCHARGE: 35 minutes. Vital Signs/I&Os Vital Signs Date Time Temp Pulse Resp B/P (MAP) Pulse Ox O2 Delivery O2 Flow Rate FiO2 02/21/21 08:00 97.8 78 24 131/84 (100) 92 Room Air I&O- Last 24 Hours up to 6 AM 02/21/21 06:00 Intake Total 1200 ml Output Total 0 ml Balance 1200 ml Laboratory Data Labs 24H Laboratory Tests 2 02/20/21 17:00: Bedside Glucose (Misc Panel) 199H 02/21/21 05:45: Immature Granulocyte % (Auto) 0.5, Neutrophils (%) (Auto) 80.9H, Lymphocytes (%) (Auto) 12.1L, Monocytes (%) (Auto) 5.5, Eosinophils (%) (Auto) 0.8, Basophils (%) (Auto) 0.2, Neutrophils # (Auto) 13.4H, Lymphocytes # (Auto) 2.0, Monocytes # (Auto) 0.9H, Eosinophils # (Auto) 0.1, Basophils # (Auto) 0.0, Nucleated Red Blood Cells % (auto) 0.0, Anion Gap 6L, Glomerular Filtration Rate > 60.0, Calcium Level 8.3L CBC/BMP Laboratory Tests 02/21/21 05:45 FSBS Laboratory Tests Test 02/20/21 17:00 Range/Units Bedside Glucose (Misc Panel) 199 83-110 MG/DL Microbiology Microbiology 02/20/21 Blood Culture - Preliminary, Resulted No growth after 24 hours . All specim... 02/19/21 Blood Culture - Preliminary, Resulted No growth after 24 hours . All specim... Discharge Medications Scheduled Calcitriol (Rocaltrol) 0.25 Mcg Capsule, 0.25 MCG PO DAILY, (Reported) Cholecalciferol (Vitamin D3) (Vitamin D3) 50 Mcg Capsule, 50 MCG PO DAILY, (Reported) TAKES AT LUNCHTIME Donepezil HCl (Donepezil HCl) 23 Mg Tab, 23 MG PO DAILY, (Reported) Doxycycline Hyclate (Doxycycline Hyclate) 100 Mg Tablet, 100 MG PO BID Famotidine (Famotidine) 20 Mg Tab, 20 MG PO DAILY, (Reported) Ferrous Sulfate (Ferrous Sulfate) 325 Mg Tab, 325 MG PO DAILY, (Reported) TAKES WITH LUNCH Glimepiride (Amaryl) 1 Mg Tablet, 1 MG PO DAILY, (Reported) Ipratropium/Albuterol Sulfate (Iprat-Albut 0.5-3(2.5) mg/3 ml) 3 Ml Ampul.neb, 3 ML INH TID Memantine HCl (Memantine HCl) 10 Mg Tab, 10 MG PO BID, (Reported) Metoprolol Succinate (Metoprolol Succinate) 25 Mg Tab, 25 MG PO QHS, (Reported) Potassium Chloride (Potassium Chloride) 20 Meq Tab, 40 MEQ PO BID, (Reported) Prednisone (Prednisone) 10 Mg Tablet, 10 MG PO DAILY, (Reported) Quetiapine Fumarate (Quetiapine Fumarate) 25 Mg Tablet, 12.5 MG PO QHS Rivaroxaban (Xarelto) 15 Mg Tablet, 15 MG PO QPM, (Reported) TAKES AT DINNERTIME Sertraline HCl (Sertraline HCl) 25 Mg Tab, 25 MG PO QAM Simvastatin (Zocor) 40 Mg Tab, 40 MG PO QHS, (Reported) Torsemide (Torsemide) 20 Mg Tablet, 40 MG PO DAILY Umeclidinium Brm/Vilanterol Tr (Anoro Ellipta 62.5-25 Mcg INH) 1 Each Blst.w.dev, 1 PUFF PO QHS, (Reported) Allergies Coded Allergies: No Known Allergies (Unverified , 01/26/18) DEMETRA DE GUZMAN MD Feb 21, 2021 10:44
== END 2021-02-21 16:53 | disposition home health service (06) | DRG 640 ==
LOC: M ED 17:47 → M ED INP 21:17 → ENRESERV 22:46 → M PCU 22:53
PROVIDERS: ADMIT Internal Medicine; ATTEND Internal Medicine Nephrology
DX: E87.0 Hyperosmolality and hypernatremia (principal); G93.41 Metabolic encephalopathy; F03.91 Unspecified dementia, unspecified severity, with behavioral disturbance; N17.9 Acute kidney failure, unspecified; I50.42 Chronic combined systolic (congestive) and diastolic (congestive) heart failure; I48.20 Chronic atrial fibrillation, unspecified; I13.0 Hypertensive heart and chronic kidney disease with heart failure and stage 1 through stage 4 chronic kidney disease, or unspecified chronic kidney disease; J44.0 Chronic obstructive pulmonary disease with (acute) lower respiratory infection; E11.9 Type 2 diabetes mellitus without complications; K21.9 Gastro-esophageal reflux disease without esophagitis; N18.30 Chronic kidney disease, stage 3 unspecified; I25.10 Atherosclerotic heart disease of native coronary artery without angina pectoris; Z95.2 Presence of prosthetic heart valve; I34.0 Nonrheumatic mitral (valve) insufficiency; I27.20 Pulmonary hypertension, unspecified; E78.5 Hyperlipidemia, unspecified; Z85.46 Personal history of malignant neoplasm of prostate; E87.6 Hypokalemia; J20.9 Acute bronchitis, unspecified; Z86.73 Personal history of transient ischemic attack (TIA), and cerebral infarction without residual deficits; Z79.899 Other long term (current) drug therapy; Z98.41 Cataract extraction status, right eye; Z98.42 Cataract extraction status, left eye; F17.200 Nicotine dependence, unspecified, uncomplicated